=== PATIENT | female | born 1955 | race Caucasian/White ===

== ENCOUNTER → 2018-03-18 13:23 | Outpatient (CLI) | payer MEDICARE, BC, SELFPAY ==
--- NOTE | 2018-03-18 13:34 | XR_ITS ---
XR tibia fibula LT 2V HISTORY: Left leg pain ITS.REASON: BILAT LEG PAIN ORDERING PHYSICIAN: Jose Kraft MD PATIENT AGE: 63 years FINDINGS: Minimal osteoarthritic change of the medial compartment. The tibia and fibula have an unremarkable appearance. IMPRESSION: Negative left tib-fib
--- NOTE | 2018-03-18 13:34 | XR_ITS ---
XR knee RT 3V HISTORY: Right knee pain ITS.REASON: BILAT LEG PAIN ORDERING PHYSICIAN: Jose Kraft MD PATIENT AGE: 63 years COMPARISON: FINDINGS: No fracture or dislocation. No lytic or blastic change. Normal mineralization. No significant arthritic changes evident. No other significant findings IMPRESSION: Negative right Knee
--- NOTE | 2018-03-18 13:34 | XR_ITS ---
XR ankle RT min 3V HISTORY: Right ankle pain ITS.REASON: BILAT LEG PAIN ORDERING PHYSICIAN: Jose Kraft MD PATIENT AGE: 63 years COMPARISON: FINDINGS: No fracture or dislocation. No lytic or blastic change. There is normal mineralization.. The joint spaces are well-preserved. No significant degenerative/arthritic changes. No erosive changes evident. IMPRESSION: Negative ankle, no acute finding
--- NOTE | 2018-03-18 13:34 | XR_ITS ---
XR tibia fibula RT 2V CLINICAL INDICATION: Right leg pain ITS.REASON: BILAT LEG PAIN ORDERING PHYSICIAN: Jose Kraft MD PATIENT AGE: 63 years FINDINGS: No bony or joint abnormality. IMPRESSION: Negative right tib-fib
--- NOTE | 2018-03-18 13:34 | XR_ITS ---
XR knee LT 3V HISTORY: Left knee pain ITS.REASON: BILAT LEG PAIN ORDERING PHYSICIAN: Jose Kraft MD PATIENT AGE: 63 years COMPARISON: FINDINGS: No fracture or dislocation. No lytic or blastic change. Normal mineralization. Mild osteoarthritic changes of the medial compartment and patellofemoral joint. IMPRESSION: Mild osteoarthritis left knee
--- NOTE | 2018-03-18 13:34 | XR_ITS ---
XR ankle LT min 3V HISTORY: Left ankle pain ITS.REASON: BILAT LEG PAIN ORDERING PHYSICIAN: Jose Kraft MD PATIENT AGE: 63 years COMPARISON: FINDINGS: No fracture or dislocation. No lytic or blastic change. There is normal mineralization.. The joint spaces are well-preserved. No significant degenerative/arthritic changes. No erosive changes evident. IMPRESSION: Negative ankle, no acute finding
== END ==
PROVIDERS: PCP Internal Medicine Adolescent Medicine; Visit Provider Internal Medicine Adolescent Medicine
DX: M79.605 Pain in left leg (principal); M79.604 Pain in right leg
CPT/HCPCS: 73562; 73590; 73610

== ENCOUNTER → 2018-09-22 12:48 | Outpatient (CLI) | payer MEDICARE, BC, SELFPAY ==
--- NOTE | 2018-09-22 12:51 | XR_ITS ---
XR foot wt bearing RT 3V HISTORY: ITS.REASON: pain ORDERING PHYSICIAN: Evangelina Liriano DPM PATIENT AGE: 63 years COMPARISON: None FINDINGS: There is mild hallux valgus with mild hypertrophic change of the distal aspect of the fifth metatarsal and mild soft tissue swelling along medial aspect of the fifth metatarsal. No fracture or dislocation. No other significant anomalies evident. IMPRESSION: Mild hallux valgus with bunion formation
--- NOTE | 2018-09-22 12:51 | XR_ITS ---
XR foot wt bearing LT 3V HISTORY: ITS.REASON: pain ORDERING PHYSICIAN: Evangelina Liriano DPM PATIENT AGE: 63 years COMPARISON: None FINDINGS: No fracture or dislocation. No lytic or blastic change. There is normal mineralization.. The joint spaces are well-preserved. No significant degenerative/arthritic changes. No erosive changes evident. There is a small calcaneal spur with minimal calcification just anterior to the spur. Spur measures approximately 8 mm. IMPRESSION: Calcaneal spur otherwise negative left foot
== END ==
PROVIDERS: PCP Internal Medicine Adolescent Medicine; Visit Provider Podiatrist
DX: M79.671 Pain in right foot (principal); M79.672 Pain in left foot
CPT/HCPCS: 73630

== ENCOUNTER → 2019-06-16 11:04 | Outpatient (CLI) | payer MEDICARE, BC, SELFPAY ==
--- NOTE | 2019-06-16 11:15 | XR_ITS ---
XR knee LT 3V HISTORY: Knee pain ITS.REASON: OSTEOARTHRITIS ORDERING PHYSICIAN: Jose Kraft MD PATIENT AGE: 64 years COMPARISON: 03/18/2018 FINDINGS: There is mild osteoarthritic change of the medial compartment and patellofemoral joint overall not significantly changed. No fracture or dislocation. No lytic or blastic change. IMPRESSION: Mild osteoarthritis not significantly changed
== END ==
PROVIDERS: PCP Internal Medicine Adolescent Medicine; Visit Provider Internal Medicine Adolescent Medicine
DX: M17.12 Unilateral primary osteoarthritis, left knee (principal)
CPT/HCPCS: 73562

== ENCOUNTER → 2019-07-10 09:51 | Outpatient (CLI) | payer MEDICARE, BC, SELFPAY ==
--- NOTE | 2019-07-10 09:55 | XR_ITS ---
PROCEDURE: XR KNEE LT 4V Patient Age:64Y CLINICAL INDICATION: left knee pain Arthritis COMPARISON: [id number] XR knee LT 3V from 03/18/2018 FINDINGS: Weightbearing [place], AP, lateral and sunrise patellar view included. No fracture or dislocation. No lytic or blastic change. There is normal mineralization. Mild joint space narrowing is seen at the medial compartment with mild sharpening at the margins of the joint most evident about the medial compartment where there are some tiny marginal osteophytes. Findings reflect early degenerative changes.. Joint fluid appears upper normal upper normal to scant increase fluid noted at suprapatellar bursa but The patellofemoral relationships appear satisfactory. Patella normal size and position.. Minor marginal osteophyte arising from the lateral margin of the patella, as well as femur at the medial aspect of patellofemoral joint IMPRESSION: Mild degenerative changes left knee involving the medial compartment Dictated by: Didier Ball MD 07/10/2019 10:56 Signed by: <Electronically signed by Didier Ball MD in [place]> 07/10/2019 10:56
== END ==
PROVIDERS: PCP Family Medicine; Visit Provider Orthopaedic Surgery
DX: M25.562 Pain in left knee (principal)
CPT/HCPCS: 73564

== ENCOUNTER → 2019-08-06 09:40 | Outpatient (CLI) | payer MEDICARE, BC, SELFPAY ==
--- NOTE | 2019-08-06 09:49 | MM_ITS ---
PROCEDURE: MM DIG SCREENING MAMM BI W/CAD CLINICAL INDICATION: SCREENING There is no personal or family history of breast cancer COMPARISON: DMSB DIGITAL MAMM-SCREEN BILATERAL from 04/08/2013 DMSB DIG MAMM-SCREEN CHUNG from 08/23/2015 DMSB DIG MAMM-SCREEN CHUNG W/CAD from 03/19/2017 TECHNIQUE: Standard CC and MLO images were obtained. R2 CAD reviewed. FINDINGS: Moderate scattered fibroglandular densities are seen throughout both breasts. There are couple of benign-appearing microcalcifications left breast. There is no suspicious lesion in either breast and no suspicious microcalcifications. IMPRESSION: Fibrofatty parenchyma with no suspicious lesions seen BI-RAD Category: 2 Benign Finding(s) FOLLOW-UP: 1YR 1 Year Follow-up (A letter has been sent to the patient regarding results of the study.) Dictated by: Dr. Vladimir Hines MD 08/07/2019 11:[address] Vladimir Hines MD in [place] 08/07/2019 11:07
== END ==
PROVIDERS: PCP Internal Medicine Adolescent Medicine; Visit Provider Internal Medicine Adolescent Medicine
DX: Z12.31 Encounter for screening mammogram for malignant neoplasm of breast (principal)
CPT/HCPCS: 77067

== ENCOUNTER → 2020-08-01 08:28 | Outpatient (CLI) | payer MEDICARE, OTHER, SELFPAY ==
--- NOTE | 2020-08-01 08:43 | XR_ITS ---
PROCEDURE: XR KNEE LT 4V CLINICAL INDICATION: left knee pain COMPARISON: CR [id number] XR knee LT 3V from 03/18/2018 CR [id number] XR knee RT 3V from 03/18/2018 CR XR KNEE LT 4V from 07/10/2019 FINDINGS: No fracture or dislocation. No lytic or blastic change. There is normal mineralization. There are mild osteoarthritic changes involving medial compartment and patellofemoral joint. Suspect small suprapatellar effusion. Other findings:None. IMPRESSION: No change mild osteoarthritic change with possible small suprapatellar effusion Dictated by: Harvinder See MD 08/01/2020 14:13 Harvinder See MD in [place] 08/01/2020 14:13
== END ==
PROVIDERS: PCP Internal Medicine Adolescent Medicine; Visit Provider Orthopaedic Surgery
DX: M17.12 Unilateral primary osteoarthritis, left knee (principal)
CPT/HCPCS: 73564

== ENCOUNTER → 2020-08-22 08:26 | Outpatient (CLI) | payer MEDICARE, OTHER, SELFPAY ==
--- NOTE | 2020-08-22 08:40 | XR_ITS ---
PROCEDURE: XR DEXA AXIAL SKELETON CLINICAL HISTORY: OSTEOPENIA COMPARISON: CR BONE3 BONE DENSITOMETRY(HIP:LT SPINE from 03/19/2017 FINDINGS: The right hip BMD is 0.632 with a T-score of -2.0. The left hip BMD is 0.630 with a T-score of -2.0. The lumbar spine BMD is 0.952 with a T-score of -0.9. Previously the lowest density was in the left femur neck with a T-score -1.8. IMPRESSION: This patient is considered osteopenic according to the World Health Organization criteria. Bone density is between 10 and 25 percent below young normal. Fracture risk is moderate. Treatment is advised. Based on these results a follow-up exam is recommended in 2 year. Dictated by: Harvinder See MD 08/23/2020 08:08 Harvinder See MD in [place] 08/23/2020 08:08
== END ==
PROVIDERS: PCP Internal Medicine Adolescent Medicine; Visit Provider Internal Medicine Adolescent Medicine
DX: M85.89 Other specified disorders of bone density and structure, multiple sites (principal)
CPT/HCPCS: 77080

== ENCOUNTER → 2020-09-17 10:07 | Outpatient (CLI) | payer MEDICARE, OTHER, SELFPAY ==
[2020-09-17 11:40] LABS: Coronavirus 19 IgG Antibody Negative (Negative); Coronavirus 19 IgM Antibody Negative (Negative)
== END ==
PROVIDERS: Visit Provider Internal Medicine Gastroenterology
DX: Z01.818 Encounter for other preprocedural examination (principal); Z12.11 Encounter for screening for malignant neoplasm of colon
CPT/HCPCS: 36415; 86328

== ENCOUNTER 2020-09-19 08:02 | Day surgery (SDC) | payer MEDICARE, OTHER, SELFPAY ==
[2020-09-13 13:37] VITALS: BMI 35.4
[2020-09-19] VITALS (7 sets, daily range): BP systolic 101–138; BP diastolic 70–91; PULSE 64–91; RESP 16–18; TEMP 36.1–36.2; O2SAT 95–100
[2020-09-19 08:41] LABS: POC Glucose,Bedside 126 (70-110)
--- NOTE | 2020-09-19 08:49 | HMH.ANESCL ---
[facility] Anesthesia Checklist - Patient Identification Patient Identification: Arm Band, Verbal (Name & ) - Structural Data Admitted From: Home Planned Operative Procedure/s: Colonoscopy Consent for Planned Operative Procedure(s) Verified: Yes Verified Documents: Surgical Consent, History and Physical - NPO Status Verified Time NPO: 00:00 - Chart Verification Results Verified: None - Additional verifications Fingerstick Blood Glucose: 126 Patient : No Anesthesia Reactions: No - Airway Assessment C-Spine Mobility Assessed: Yes TMJ Mobility Assessed: Yes Dentition: Good Dentition - Neurological Assessment Level of Consciousness: Awake, Alert, Appropriate, Follows Commands Hx Seizures: No Numbness or tingling in extremities: No - Anesthesia Plan Anesthesia Risk discussed: Yes Anesthesia Plan: Verified ASA Class: III Anesthesia Type: MAC [facility] History I have reviewed the patient's past medical history: Yes Medical History: Reports:: Diabetes Mellitus Type 2, Gastroesophageal Reflux Disease(GERD), Hyperlipidemia, Hypertension Denies:: Cancer, MRSA, Seizures *Have you ever received a pneumonia vaccine?: No *Have you received a flu vaccine this season?: No Other Medical History: Reports: Arthritis Comment:: obesity Anesthesia experience/problems:: None Other Surgeries: Yes: Cholecystectomy, Colonoscopy, , Hernia Repair, Hysterectomy-Total Amputation: No Fractures: No - *Social History Last grade of school completed: High school graduate Smoking Status: Never smoker Alcohol Intake: never Alcohol Intake Frequency:: other Substance Use Type: denies use *Occupational Status:: disabled *Travel in the last 8 weeks: None Family Hx:: No significant family history
--- NOTE | 2020-09-19 09:26 | P.PCN_ITS ---
[facility] Procedure Note Procedure Note:: Colonoscopy Procedure Report: Colonoscopy with cold snare polypectomy Endoscopist: Trevon Rivera II, MD Referring physician: Jose Kraft M.D. Date of Procedure: September 19, 2020 Equipment: Olympus 180 variable stiffness pediatric colonoscope Sedation: MAC sedation Indication: Mrs. Cooney is a 65-year-old female who is here for follow-up screening/surveillance colonoscopy. Her last colonoscopy was February 2011. The patient does have some intermittent hemorrhoidal prolapse and minor hemorrhoid bleeding. She does take Senokot, magnesium oxide and MiraLAX twice daily which helps to control her chronic constipation. She reports no abdominal pain, weight loss, change in her bowel habits or family history of colon cancer. Procedure: Prior to the procedure, a history and physical exam was performed, and patient's medications and allergies were reviewed. The risks, benefits and alternatives of the sedation and procedure were discussed with the patient. All questions were answered and informed consent was obtained. The patient was brought to the procedure room. Patient identification and proposed procedure were verified by the physician and the nurse. The patient was placed in a left lateral decubitus position and the scope was passed under direct vision. Throughout the procedure , the patient's blood pressure, pulse, and oxygen saturations were monitored continuously. The colonoscopy was accomplished without difficulty. The patient tolerated the procedure well. Findings: On digital rectal examination there was normal rectal tone. There were no external hemorrhoids. The colonoscope was introduced through the anal canal to the rectum and advanced to the cecum. The ileocecal valve and appendiceal orifice were identified. The scope was advanced a short distance into the ileum which appeared grossly normal. The scope was then withdrawn into the colon. The cecum was normal. There were 4 polyps (ascending x1 (4 mm), transverse x1 (4 mm), descending x2 (3 and 6 mm)) that were all removed via cold snare polypectomy. There was mild melanosis coli. There were scattered diverticuli throughout the descending and sigmoid colon (LEFT colon). The rectum itself was normal. Upon retroflexion within the rectum there were grade 1-2 internal hemorrhoids. The preparation was excellent throughout with Ogden Preparation Score of 9. The cecal time was 13 minutes. Impression: 1. Diminutive colonic polyps x4 2. Left-sided diverticulosis 3. Mild melanosis coli 4. Grade 1-2 internal hemorrhoids Plan: The patient does state that she has minor hemorrhoid bleeding. If this were to persist, would consider more definitive hemorrhoid ablation or banding. I will follow-up the polyp histology and recommend repeat surveillance colonoscopy again in 5 years if the polyps are adenomatous. I would continue the bowel regimen that she is presently taking since she does state this does help to control bowel regularity.
== END 2020-09-19 10:31 | disposition home or self-care (01) ==
LOC: OUTP 08:04
PROVIDERS: PCP Internal Medicine Adolescent Medicine; Visit Provider Internal Medicine Gastroenterology
PROC: 0DJD8ZZ Inspection of Lower Intestinal Tract, Via Natural or Artificial Opening Endoscopic (ICD-10-PCS; CPT 45378; principal; 2020-09-19 09:30)
DX: Z12.11 Encounter for screening for malignant neoplasm of colon (principal); K63.5 Polyp of colon; K57.30 Diverticulosis of large intestine without perforation or abscess without bleeding; K63.89 Other specified diseases of intestine; K64.0 First degree hemorrhoids; E11.9 Type 2 diabetes mellitus without complications; K21.9 Gastro-esophageal reflux disease without esophagitis; E78.5 Hyperlipidemia, unspecified; I10 Essential (primary) hypertension
CPT/HCPCS: 45385; 82962; 88305

== ENCOUNTER → 2020-10-05 09:29 | Outpatient (CLI) | payer MEDICARE, OTHER, SELFPAY ==
--- NOTE | 2020-10-05 09:35 | MM_ITS ---
PROCEDURE: MM DIG SCREENING MAMM BI W/CAD Digital Breast Tomosynthesis Included CLINICAL INDICATION: SCREENING There is no personal or family history of breast cancer. Patient currently is on estrogen. COMPARISON: MG DMSB DIG MAMM-SCREEN CHUNG W/CAD from 03/19/2017 MG MM DIG SCREENING MAMM BI W/CAD from 08/06/2019 TECHNIQUE: Standard CC and MLO images and 3D Tomosynthesis was obtained. R2 CAD reviewed. FINDINGS: Scattered fibroglandular densities are seen throughout both breast and the findings are fairly symmetrical bilaterally. There is benign-appearing calcification left breast. There are no CAD markings. There is no suspicious lesion in either breast and no suspicious microcalcifications. IMPRESSION: Fibrofatty parenchyma with no suspicious BI-RAD Category: 2 Benign Finding(s) FOLLOW-UP: 1YR 1 Year Follow-up (A letter has been sent to the patient regarding results of the study.) Dictated by: Dr. Vladimir Hines MD 10/08/2020 09:16 Dr. Vladimir Hines MD in [place] 10/08/2020 09:16
== END ==
PROVIDERS: PCP Internal Medicine Adolescent Medicine; Visit Provider Internal Medicine Adolescent Medicine
DX: Z12.31 Encounter for screening mammogram for malignant neoplasm of breast (principal)
CPT/HCPCS: 77063; 77067

== ENCOUNTER → 2021-04-11 22:10 | Outpatient (CLI) | payer MEDICARE, OTHER, SELFPAY ==
[2021-04-11 22:18] LABS: Basophils # 0.1 K/mm3 (0-0.2); Basophils % 0.7 % (0.1-2.0); Eosinophils # 0.1 K/mm3 (0.0-0.4); Eosinophils % 1.2 % (0.1-12.0); Hematocrit 39.9 % (37.0-47.0); Hemoglobin 12.9 g/dL (12.2-16.2); Lymphocytes # 3.4 K/mm3 (0.7-4.5); Lymphocytes % 34.8 % (10-50); Mean Corpuscular HGB Conc 32.3 g/dL (31.8-35.4); Mean Corpuscular Hemoglobin 29.4 pg (27.0-31.2); Monocytes # 0.9 K/mm3 (0.1-1.0); Monocytes % 9.6 % (1.7-9.3); Neutrophils # 5.2 K/mm3 (1.8-7.8); Neutrophils % 53.7 % (37.0-80.0); Platelet Count 334 K/mm3 (142-424); Red Blood Count 4.39 M/mm3 (4.20-5.40); Red Cell Distribution Width 15.6 % (11.5-17.5); White Blood Count 9.6 K/mm3 (4.8-10.8)
[2021-04-11 22:36] LABS: Chloride 101 mmol/L (98-107)
[2021-04-11 22:37] LABS: Potassium 5.2 mmoL/L (3.5-5.1); Sodium 137 mmol/L (136-145)
[2021-04-11 22:39] LABS: Alanine Aminotransferase 39 U/L (12-78); Alkaline Phosphatase 81 U/L (38-126); Anion Gap 14.2 mEq/L (5-15); Aspartate Amino Transferase 36 U/L (14-36); Bilirubin,Total 0.6 mg/dl (0.2-1.3); Blood Urea Nitrogen 14 mg/dl (7-17); Carbon Dioxide 27 mmol/L (22.0-30.0); Estimated Glomerular Filt Rate 84 ml/min (>60); GFR (African American) 101 ML/MIN (>60)
[2021-04-11 22:40] LABS: Albumin Level 4.4 g/dl (3.5-5.0); Albumin/Globulin Ratio 1.8 (1.1-1.8); Calcium 10.1 mg/dl (8.4-10.2); Globulin 2.5 g/dL (1.3-3.2); Glucose 108 mg/dl (74-100); Total Protein,Serum 6.9 g/dl (6.3-8.2)
== END ==
PROVIDERS: Visit Provider Internal Medicine Adolescent Medicine
DX: M06.041 Rheumatoid arthritis without rheumatoid factor, right hand (principal)
CPT/HCPCS: 80053; 85025

== ENCOUNTER → 2021-08-08 08:00 | Outpatient (CLI) | payer MEDICARE, OTHER, SELFPAY ==
[2021-08-09 08:32] LABS: Basophils # 0.1 K/mm3 (0-0.2); Basophils % 0.9 % (0.1-2.0); Eosinophils # 0.1 K/mm3 (0.0-0.4); Eosinophils % 1.1 % (0.1-12.0); Hematocrit 44.4 % (37.0-47.0); Hemoglobin 13.1 g/dL (12.2-16.2); Lymphocytes # 3.5 K/mm3 (0.7-4.5); Lymphocytes % 34.5 % (10-50); Mean Corpuscular HGB Conc 29.6 g/dL (31.8-35.4); Mean Corpuscular Hemoglobin 28.7 pg (27.0-31.2); Mean Corpuscular Volume 96.9 fl (81-99); Mean Platelet Volume 11.3 fl (7.4-10.4); Monocytes % 9.3 % (1.7-9.3); Neutrophils # 5.6 K/mm3 (1.8-7.8); Neutrophils % 54.2 % (37.0-80.0); Platelet Count 331 K/mm3 (142-424); Red Blood Count 4.58 M/mm3 (4.20-5.40); Red Cell Distribution Width 15.3 % (11.5-17.5); White Blood Count 10.2 K/mm3 (4.8-10.8)
[2021-08-09 08:38] LABS: Alanine Aminotransferase 40 U/L (12-78); Albumin Level 3.9 g/dl (3.5-5.0); Albumin/Globulin Ratio 1.4 (1.1-1.8); Alkaline Phosphatase 87 U/L (38-126); Anion Gap 12.1 mEq/L (5-15); Aspartate Amino Transferase 47 U/L (14-36); Bilirubin,Total 0.5 mg/dl (0.2-1.3); Blood Urea Nitrogen 9 mg/dl (7-17); Calcium 10.4 mg/dl (8.4-10.2); Carbon Dioxide 28 mmol/L (22.0-30.0); Chloride 102 mmol/L (98-107); Chol/HDL Ratio 2.6 (1-3.5); Cholesterol 136 mg/dl (140-200); Estimated Glomerular Filt Rate 84 ml/min (>60); GFR (African American) 101 ML/MIN (>60); Globulin 2.7 g/dL (1.3-3.2); Glucose 149 mg/dl (74-100); HDL Cholesterol 53 mg/dl (40-60); Potassium 5.1 mmoL/L (3.5-5.1); Sodium 137 mmol/L (136-145); Total Protein,Serum 6.6 g/dl (6.3-8.2); Triglycerides 138 mg/dl (30-150); VLDL Cholesterol 28 mg/dL (0-40)
[2021-08-09 09:34] LABS: Hemoglobin A1C 7.5 % (4.0-6.0)
== END ==
PROVIDERS: Visit Provider Internal Medicine Adolescent Medicine
DX: E11.9 Type 2 diabetes mellitus without complications (principal); E78.5 Hyperlipidemia, unspecified; M06.841 Other specified rheumatoid arthritis, right hand; M85.89 Other specified disorders of bone density and structure, multiple sites; Z79.84 Long term (current) use of oral hypoglycemic drugs
CPT/HCPCS: 80053; 80061; 83036; 85025

== ENCOUNTER → 2021-10-27 16:22 | Outpatient (CLI) | payer MEDICARE, OTHER, SELFPAY ==
--- NOTE | 2021-10-27 16:25 | MM_ITS ---
PROCEDURE INFORMATION: Exam: MG Bilateral Screening 3D Mammography Exam date and time: 10/27/2021 4:25 PM Age: 66 years old Clinical indication: Encounter for screening mammogram for malignant neoplasm of breast TECHNIQUE: Imaging protocol: Bilateral screening tomosynthesis and 2D mammography including computer-aided detection (CAD) when performed. COMPARISON: 1. MG MM DIG SCREENING MAMM BI W/CAD 10/05/2020 9:36 AM 2. MG MM DIG SCREENING MAMM BI W/CAD 08/06/2019 10:05 AM FINDINGS: MAMMOGRAPHY: Breast composition: The breast tissue is composed of scattered areas of fibroglandular density. Mass: None. Architectural distortion: None. Calcifications: No suspicious calcifications. Asymmetric density: None. Skin thickening: None. Axillary adenopathy: None. IMPRESSION: No mammographic evidence of malignancy. Annual screening is recommended unless otherwise clinically indicated. ASSESSMENT: BI-RADS Category 1: Negative
== END ==
PROVIDERS: PCP Internal Medicine Adolescent Medicine; Visit Provider Internal Medicine Adolescent Medicine
DX: Z12.31 Encounter for screening mammogram for malignant neoplasm of breast (principal)
CPT/HCPCS: 77063; 77067

== ENCOUNTER → 2021-11-21 18:56 | Outpatient (CLI) | payer MEDICARE, OTHER, SELFPAY ==
[2021-11-21 19:03] LABS: Basophils # 0.1 K/mm3 (0-0.2); Basophils % 1.6 % (0.1-2.0); Eosinophils # 0.1 K/mm3 (0.0-0.4); Hematocrit 44.3 % (37.0-47.0); Lymphocytes # 3.1 K/mm3 (0.7-4.5); Lymphocytes % 36.4 % (10-50); Mean Corpuscular HGB Conc 31.7 g/dL (31.8-35.4); Mean Corpuscular Hemoglobin 29.2 pg (27.0-31.2); Mean Corpuscular Volume 92.1 fl (81-99); Mean Platelet Volume 10.4 fl (7.4-10.4); Monocytes # 0.7 K/mm3 (0.1-1.0); Monocytes % 8.4 % (1.7-9.3); Neutrophils # 4.4 K/mm3 (1.8-7.8); Neutrophils % 52.7 % (37.0-80.0); Platelet Count 313 K/mm3 (142-424); Red Blood Count 4.81 M/mm3 (4.20-5.40); Red Cell Distribution Width 15.5 % (11.5-17.5); White Blood Count 8.4 K/mm3 (4.8-10.8)
[2021-11-21 19:15] LABS: Alanine Aminotransferase 57 U/L (12-78); Albumin Level 4.5 g/dl (3.5-5.0); Albumin/Globulin Ratio 1.9 (1.1-1.8); Alkaline Phosphatase 93 U/L (38-126); Anion Gap 9.8 mEq/L (5-15); Aspartate Amino Transferase 57 U/L (14-36); Bilirubin,Total 0.7 mg/dl (0.2-1.3); Blood Urea Nitrogen 12 mg/dl (7-17); Calcium 11.3 mg/dl (8.4-10.2); Carbon Dioxide 31 mmol/L (22.0-30.0); Chloride 99 mmol/L (98-107); Chol/HDL Ratio 2.8 (1-3.5); Cholesterol 137 mg/dl (140-200); Estimated Glomerular Filt Rate 72 ml/min (>60); GFR (African American) 87 ML/MIN (>60); Globulin 2.4 g/dL (1.3-3.2); Glucose 165 mg/dl (74-100); HDL Cholesterol 49 mg/dl (40-60); Potassium 4.8 mmoL/L (3.5-5.1); Sodium 135 mmol/L (136-145); Total Protein,Serum 6.9 g/dl (6.3-8.2); Triglycerides 199 mg/dl (30-150); VLDL Cholesterol 40 mg/dL (0-40)
[2021-11-21 19:26] LABS: Direct LDL Cholesterol 59.05 mg/dL (100-129)
[2021-11-21 19:42] LABS: Hemoglobin A1C 7.5 % (4.0-6.0)
[2021-11-21 19:45] LABS: Thyroid Stimulating Hormone 1.67 uIU/mL (0.465-4.68)
[2021-11-21 21:08] LABS: 25-OH Vitamin D, Total 40.7 ng/mL (30-100)
== END ==
PROVIDERS: Visit Provider Internal Medicine Adolescent Medicine
DX: E11.9 Type 2 diabetes mellitus without complications (principal); E78.5 Hyperlipidemia, unspecified; M85.89 Other specified disorders of bone density and structure, multiple sites; Z79.84 Long term (current) use of oral hypoglycemic drugs
CPT/HCPCS: 80053; 80061; 82306; 83036; 84443; 85025

== ENCOUNTER → 2022-10-09 05:52 | Outpatient (CLI) | payer MEDICARE, OTHER, SELFPAY ==
[2022-10-09 19:05] LABS: Creatinine,Urine Random 74 mg/dL (Not Estab.); Microalbumin < 6.000 mg/L (0-16.7)
== END ==
PROVIDERS: PCP Family Medicine; Visit Provider Family Medicine
DX: E11.9 Type 2 diabetes mellitus without complications (principal)
CPT/HCPCS: 82043; 82570

== ENCOUNTER → 2022-10-12 11:39 | Outpatient (CLI) | payer MEDICARE, OTHER, SELFPAY ==
--- NOTE | 2022-10-12 11:48 | XR_ITS ---
FINAL REPORT CLINICAL HISTORY: low back pain, hx of hernia sx and mesh placed FINDINGS: LUMBAR SPINE Three views were obtained. There is no acute fracture. There is leftward curvature. Mild to moderate degenerative changes are present. There is 3 mm of anterolisthesis of L4 on L5. There is 4 mm of anterolisthesis of L5 on S1. Mild vascular calcifications are noted. IMPRESSION: Degenerative changes with no acute bony abnormality. Reviewed, Interpreted and Dictated by Travis Bui III, MD Transcribed by Yen Mabry Authenticated and [facility]
== END ==
PROVIDERS: PCP Family Medicine; Visit Provider Family Medicine
DX: M54.50 Low back pain, unspecified (principal)
CPT/HCPCS: 72100

== ENCOUNTER → 2022-11-01 09:30 | Outpatient (CLI) | payer MEDICARE, OTHER, SELFPAY | PROVIDERS: PCP Family Medicine; Visit Provider Family Medicine | DX: Z12.31 Encounter for screening mammogram for malignant neoplasm of breast (principal) ==

== ENCOUNTER → 2022-11-01 18:58 | Outpatient (CLI) | payer MEDICARE, OTHER, SELFPAY | PROVIDERS: PCP Family Medicine; Visit Provider Family Medicine | DX: E11.9 Type 2 diabetes mellitus without complications (principal) | CPT/HCPCS: 83036 ==

== ENCOUNTER → 2022-11-06 12:52 | Outpatient (CLI) | payer MEDICARE, OTHER, SELFPAY ==
--- NOTE | 2022-11-06 13:07 | MM_ITS ---
PROCEDURE INFORMATION: Exam: MG Bilateral Screening 3D Mammography Exam date and time: 11/06/2022 1:01 PM Age: 67 years old Clinical indication: Screening. No family history of breast cancer. TECHNIQUE: Imaging protocol: Bilateral Screening tomosynthesis and 2D mammography including computer-aided detection (CAD) when performed. COMPARISON: 1. MG MM DIG SCREENING MAMM BI W/CAD 10/27/2021 4:21 PM 2. MG MM DIG SCREENING MAMM BI W/CAD 10/05/2020 9:36 AM 3. MG MM DIG SCREENING MAMM BI W/CAD 08/06/2019 10:05 AM 4. MG DMSB DIG MAMM-SCREEN CHUNG W/CAD 03/19/2017 10:19 AM FINDINGS: MAMMOGRAPHY: Breast composition: There are scattered areas of fibroglandular density. Mass: No suspicious mass. Architectural distortion: None. Calcifications: No suspicious calcifications. Asymmetric density: None. Skin thickening: None. Axillary adenopathy: None. IMPRESSION: No mammographic evidence of malignancy. Annual screening is recommended unless otherwise clinically indicated. ASSESSMENT: BI-RADS Category 1: Negative
== END ==
PROVIDERS: PCP Family Medicine; Visit Provider Family Medicine
DX: Z12.31 Encounter for screening mammogram for malignant neoplasm of breast (principal)
CPT/HCPCS: 77063; 77067

== ENCOUNTER → 2022-11-20 10:05 | Outpatient (CLI) | payer MEDICARE, OTHER, SELFPAY ==
[2022-11-20 11:48] LABS: Blood Urea Nitrogen 10 mg/dl (7-17); Estimated Glomerular Filt Rate 72 ml/min (>60); GFR (African American) 87 ML/MIN (>60)
== END ==
PROVIDERS: PCP Family Medicine; Visit Provider Surgery
DX: Z01.812 Encounter for preprocedural laboratory examination (principal)
CPT/HCPCS: 36415; 82565; 84520

== ENCOUNTER → 2022-12-03 07:49 | Outpatient (CLI) | payer MEDICARE, OTHER, SELFPAY ==
--- NOTE | 2022-12-03 07:54 | CT_ITS ---
FINAL REPORT TECHNIQUE: Thin section axial images were obtained through the abdomen after intravenous contrast. Reconstruction images were obtained from the axial data. Exam was performed using dose reduction techniques. CLINICAL HISTORY: possible hernia, hernia repair FINDINGS: The lung bases are clear. The liver is fatty infiltrated without focal lesions seen. The gallbladder is absent. The spleen, adrenal glands, and pancreas are unremarkable. There is no hydronephrosis or solid renal mass. Abdominal GI tract is without acute abnormality. There is no abdominal lymphadenopathy or ascites. There is a small hiatal hernia. There are postoperative changes from ventral hernia repair. Superior to the mesh is a midline hernia containing only fat. Abdominal wall defect measures 3.3 cm. The appendix is not identified. There are no secondary findings of appendicitis. There is diverticulosis without evidence of diverticulitis. Patient is status post hysterectomy. The remaining pelvic solid organs are unremarkable. The pelvic portions of the GI tract are without acute abnormality. There is no pelvic lymphadenopathy or ascites. No acute osseous abnormalities identified. IMPRESSION: Fat containing, midline ventral hernia superior to mesh from prior hernia repair. Reviewed, Interpreted and Dictated by Mary Reddy MD Transcribed by Anila Vázquez Authenticated and [facility]
== END ==
PROVIDERS: PCP Family Medicine; Visit Provider Surgery
DX: K46.9 Unspecified abdominal hernia without obstruction or gangrene (principal); R10.11 Right upper quadrant pain
CPT/HCPCS: 74177; Q9967

== ENCOUNTER → 2023-04-24 09:00 | Outpatient (CLI) | payer MEDICARE, OTHER, SELFPAY ==
[2023-04-24 21:03] LABS: Creatinine,Urine Random 33 mg/dL (Not Estab.); Microalbumin < 6.000 mg/L (0-16.7)
== END ==
PROVIDERS: PCP Family Medicine; Visit Provider Family Medicine
DX: E11.9 Type 2 diabetes mellitus without complications (principal); Z79.84 Long term (current) use of oral hypoglycemic drugs
CPT/HCPCS: 82043; 82570

== ENCOUNTER → 2023-04-25 08:18 | Outpatient (CLI) | payer MEDICARE, OTHER, SELFPAY ==
--- NOTE | 2023-04-25 08:26 | ECG_ITS ---
APPROVED REPORT Exam: Resting ECG HR:50 bpm ECG Measurements Heart Rate 50 AXES CO 207 P 44 QRSd 80 QRS 58 QT 394 T 52 QTc 366 Conclusion SINUS BRADYCARDIA LOW QRS VOLTAGE IN PRECORDIAL LEADS [QRS DEFLECTION < 1.0 mV IN CHEST LEADS] BORDERLINE ECG UNCONFIRMED REPORT Electronically signed by : Jose Kraft MD 04/25/2023 13:30:38
--- NOTE | 2023-04-25 08:30 | XR_ITS ---
FINAL REPORT CLINICAL HISTORY: hernia COMPARISON: None FINDINGS: There is no evidence of effusion or other pleural disease. The mediastinum has a normal appearance. The cardiac silhouette is unremarkable. IMPRESSION: Unremarkable chest exam. Reviewed, Interpreted and Dictated by Jordan Casas MD Transcribed by Paris Taylor Authenticated and [facility]
[2023-04-25 09:25] LABS: Basophils % 0.6 % (0.1-2.0); Eosinophils # 0.1 K/mm3 (0.0-0.4); Eosinophils % 1.1 % (0.1-12.0); Hematocrit 44.7 % (37.0-47.0); Hemoglobin 14.9 g/dL (12.2-16.2); Lymphocytes # 2.5 K/mm3 (0.7-4.5); Lymphocytes % 36.5 % (10-50); Mean Corpuscular HGB Conc 33.4 g/dL (31.8-35.4); Mean Corpuscular Hemoglobin 31.2 pg (27.0-31.2); Mean Corpuscular Volume 93.3 fl (81-99); Mean Platelet Volume 9.1 fl (7.4-10.4); Monocytes # 0.6 K/mm3 (0.1-1.0); Monocytes % 8.5 % (1.7-9.3); Neutrophils # 3.6 K/mm3 (1.8-7.8); Neutrophils % 53.4 % (37.0-80.0); Platelet Count 252 K/mm3 (142-424); Red Blood Count 4.79 M/mm3 (4.20-5.40); Red Cell Distribution Width 13.7 % (11.5-17.5); White Blood Count 6.8 K/mm3 (4.8-10.8)
[2023-04-25 09:50] LABS: Chloride 102 mmol/L (98-107); Sodium 138 mmol/L (136-145)
[2023-04-25 09:51] LABS: Potassium 4.6 mmoL/L (3.5-5.1)
[2023-04-25 09:51] LABS: Chloride 101 mmol/L (98-107); Sodium 138 mmol/L (136-145)
[2023-04-25 09:52] LABS: Hemoglobin A1C 6.5 % (4.0-6.0); Potassium 4.6 mmoL/L (3.5-5.1)
[2023-04-25 09:54] LABS: Alanine Aminotransferase 36 U/L (12-78); Albumin Level 4.2 g/dl (3.5-5.0); Albumin/Globulin Ratio 1.8 (1.1-1.8); Alkaline Phosphatase 76 U/L (38-126); Anion Gap 15.6 mEq/L (5-15); Aspartate Amino Transferase 37 U/L (14-36); Bilirubin,Total 0.7 mg/dl (0.2-1.3); Blood Urea Nitrogen 9 mg/dl (7-17); Calcium 10.6 mg/dl (8.4-10.2); Carbon Dioxide 26 mmol/L (22.0-30.0); Estimated Glomerular Filt Rate 83 ml/min (>60); GFR (African American) 101 ML/MIN (>60); Globulin 2.4 g/dL (1.3-3.2); Glucose 157 mg/dl (74-100); Total Protein,Serum 6.6 g/dl (6.3-8.2)
[2023-04-25 09:54] LABS: Anion Gap 13.6 mEq/L (5-15); Blood Urea Nitrogen 9 mg/dl (7-17); Calcium 10.7 mg/dl (8.4-10.2); Carbon Dioxide 27 mmol/L (22.0-30.0); Estimated Glomerular Filt Rate 83 ml/min (>60); GFR (African American) 101 ML/MIN (>60); Glucose 157 mg/dl (74-100)
== END ==
PROVIDERS: PCP Family Medicine; Visit Provider Surgery
DX: K46.9 Unspecified abdominal hernia without obstruction or gangrene (principal); E11.9 Type 2 diabetes mellitus without complications; I10 Essential (primary) hypertension; Z01.818 Encounter for other preprocedural examination; Z79.84 Long term (current) use of oral hypoglycemic drugs
CPT/HCPCS: 36415; 71046; 80048; 80053; 83036; 85025; 93005

== ENCOUNTER 2023-04-29 08:37 | Day surgery (SDC) | payer MEDICARE, OTHER, SELFPAY ==
[2023-04-29] VITALS (17 sets, daily range): BP systolic 111–155; BP diastolic 66–96; PULSE 65–77; RESP 14–16; TEMP 36.1–43; O2SAT 90–96; BMI 34.1
[2023-04-29 09:49] LABS: POC Glucose,Bedside 169 (70-110)
--- NOTE | 2023-04-29 10:17 | P.PN_ITS ---
[facility] Disclaimer: The information contained in this section may have been updated after the patient was seen, as this information can be updated by other users. Medical History Aphthous ulcer Hearing loss Hyperlipidemia Hypertension Osteoporosis Rheumatoid arthritis Surgical menopause, symptomatic Type 2 diabetes mellitus Surgical History History of delivery History of cholecystectomy History of colonoscopy History of hernia repair History of hysterectomy Family History Grandmother Coronary artery disease Social History Smoking Status: Never smoker alcohol intake: never substance use type: denies use current occupational status: disabled Travel in the last 8 weeks: None household members: spouse housing: house caffeine: Yes [facility] Anesthesia Checklist Patient Identification Patient Identification: Arm Band Structural Data Admitted From: Home Planned Operative Procedure/s: Laparoscopic Ventral Hernia Repair Consent for Planned Operative Procedure(s) Verified: Yes Verified Documents: Surgical Consent and History and Physical NPO Status Verified Time NPO: 00:00 Additional verifications Anesthesia Reactions: No Hx Blood Transfusions: No Blood Transfusion Reaction: No Airway Assessment C-Spine Mobility Assessed: Yes TMJ Mobility Assessed: Yes Dentition: Good Dentition Neurological Assessment Level of Consciousness: Awake and Alert Anesthesia Plan Anesthesia Risk discussed: Yes Anesthesia Plan: Verified ASA Class: II Anesthesia Type: General
--- NOTE | 2023-04-29 11:57 | EXP.GEN.HP ---
HPI HPI HPI: Patient presents for abdominal hernia repair. She is a pleasant 67-year-old female from [place] who is somewhat hard of hearing.? She was referred by Dr. Eason for recurrent ventral hernia.? She had previously undergone x2 through low midline and hysterectomy.? She has also had laparoscopic cholecystectomy.? She had developed a supraumbilical hernia and underwent laparoscopic repair by Dr. Amando Tee about 7 or 10 years ago.? She states about 4 years ago she had noticed a recurrent bulge.? She did gain some weight but she is trying to lose this.? I had initially seen her in the office on 11/20/2022.? I had her undergo CT scan to better evaluate hernia. CT scan reveals findings of ventral hernia repair with midline hernia containing fat with a defect measuring 3.3 cm superior to previously placed mesh.? I feel that the patient had a moderate recurrent ventral hernia at her midline above previous mesh.? She also had evidence of a small trocar site hernia in the epigastrium from previous cholecystectomy.? When she was seen in the office in November she wished to refrain from surgery at that time due to some personal life stressors.? She presents to the office now.? She does have some minor discomfort.? However she is able to do some work including working in the garden.? She would like to pursue repair. [facility] Disclaimer: The information contained in this section may have been updated after the patient was seen, as this information can be updated by other users. Medical History Aphthous ulcer Hearing loss Hyperlipidemia Hypertension Osteoporosis Rheumatoid arthritis Surgical menopause, symptomatic Type 2 diabetes mellitus Surgical History History of delivery History of cholecystectomy History of colonoscopy History of hernia repair History of hysterectomy Family History Grandmother Coronary artery disease Social History Smoking Status: Never smoker alcohol intake: never substance use type: denies use current occupational status: disabled Travel in the last 8 weeks: None household members: spouse housing: house caffeine: Yes Meds Home Medications and Allergies Home Medications Medication Instructions Recorded Confirmed Type calcium carbonate 600 mg calcium 600 mg PO DAILY Supplement 09/13/20 04/29/23 History (1,500 mg) tablet diltiazem HCl 240 mg 240 mg PO DAILY bp 90 days #90 caps 10/09/22 04/29/23 Rx capsule,extended release 24 hr, controlled lansoprazole 30 mg capsule,delayed 30 mg PO DAILY stomach 90 days #90 10/09/22 04/29/23 Rx release caps lisinopril 20 mg tablet 20 mg PO DAILY blood pressure 90 10/09/22 04/29/23 Rx days #90 tabs meloxicam 15 mg tablet 15 mg PO DAILY Pain 90 days #90 10/09/22 04/29/23 Rx tabs polyethylene glycol 3350 17 17 g PO DAILY PRN constipation 30 10/09/22 04/29/23 Rx gram/dose oral powder days #119 grams psyllium husk 3.4 gram/5.4 gram 1 tbsp PO DAILY PRN Constipation 10/09/22 04/29/23 History oral powder (Metamucil) alendronate 35 mg tablet 35 mg PO WEEKLY Osteoporosis 90 03/25/23 04/29/23 Rx days #13 tabs tramadol 50 mg tablet 50 mg PO BID Pain 30 days #60 tabs 04/17/23 04/29/23 Rx atorvastatin 20 mg tablet (Lipitor) 20 mg PO DAILY Cholesterol 04/29/23 04/29/23 History conjugated estrogens 0.625 mg 0.625 mg PO DAILY hormones 04/29/23 04/29/23 History tablet folic acid 1 mg tablet 1 mg PO DAILY Supplement 04/29/23 04/29/23 History gabapentin 100 mg capsule See Rx Instructions .Route 04/29/23 04/29/23 History .COMPLEX Pain metformin 1,000 mg tablet,extended 1,000 mg PO DAILY Diabetes 04/29/23 04/29/23 History release 24hr methotrexate sodium 2.5 mg tablet 20 mg PO WEEKLY Arthritis 04/29/23
--- NOTE | 2023-04-29 15:03 | EXP.OP.NOTE ---
Date of procedure: 04/29/23 Pre-op Diagnosis:: Recurrent ventral hernia, chronically incarcerated Epigastric trocar site incisional hernia Post-op Diagnosis:: Same Procedure performed:: Laparoscopic repair of recurrent ventral hernia with placement of Bard Ventralight ST mesh (15.2 cm circular) Laparoscopic repair of epigastric trocar site hernia with placement of 6.4 cm Bard Ventralex mesh Surgeon:: Travis Dukes MD OVERHEAD IRRIGATOR:: Other Anesthesia: GETA Estimated blood loss (mL): 25 Clinical Note:: Patient presents for abdominal hernia repair.? She is a pleasant 67-year-old female from [place] who is somewhat hard of hearing.? She was referred by Dr. Eason for recurrent ventral hernia.? She had previously undergone x2 through low midline and hysterectomy.? She has also had laparoscopic cholecystectomy.? She had developed a supraumbilical hernia and underwent laparoscopic repair by Dr. Amando Tee about 7 to 10 years ago.? She states about 4 years ago she had noticed a recurrent bulge.? She did gain some weight but she is trying to lose this.? I had initially seen her in the office on 11/20/2022.? I had her undergo CT scan to better evaluate hernia. CT scan reveals findings of ventral hernia repair with midline hernia containing fat with a defect measuring 3.3 cm superior to previously placed mesh.? I feel that the patient had a moderate recurrent ventral hernia at her midline above previous mesh.? She also had evidence of a small trocar site hernia in the epigastrium from previous cholecystectomy.? When she was seen in the office in November she wished to refrain from surgery at that time due to some personal life stressors.? She recently presented to the office for followup.? She does have some minor discomfort.? However she is able to do some work including working in the garden.? She would like to pursue repair. Operative findings:: She had extensive adhesions to her previously placed mesh. There was a moderate hernia at the superior aspect of the mesh with a defect measuring about 3 to 4 cm with chronically incarcerated omentum. She had a couple of hernias in the epigastric site at previous trocar scar by a small fascial bridge with chronically incarcerated preperitoneal fatty tissues. Operative note:: Consent was obtained patient was taken to the operating room. She was given preoperative intravenous antibiotics. In the operating room she was placed in a supine position. General anesthesia was induced via endotracheal tube. Escudero catheter was placed. Abdomen was prepped and draped in the standard surgical fashion. 5 mm left subcostal incision was made. Optical trocar was inserted carefully into the peritoneal cavity and CO2 pneumoperitoneum was achieved to 15 mmHg. There is some omental adhesions to the anterior abdomen above the umbilicus. Initially mesh was obscured. She had additional trocar placed in the left lateral abdomen. Prolonged dissection was carried out taking down the omental adhesions from the mesh which was ultimately identified. This was done using some blunt dissection, Metzenbaum dissection, and use of CHRISTIE ultrasonic harmonic jany. There were herniated tissues adjacent to and above the mesh is a recurrent hernia. To reduce the hernia contents additional 5 mm trocar was inserted in the left lower abdomen for a total of three 5 mm trocars in the left abdomen. Ultimately the hernia contents consisting of chronically incarcerated omentum were able to be reduced. There was redundant hernia sac which was excised as well. The omentum with hernia sac was excised from the omental pedicle to be removed later as a specimen. She had a 5 mm trocar placed in the right lateral abdomen. Attention was turned to the dissection on the epigastric trocar site hernia. This was adjacent to to the left of the falciform ligament. The peritoneum was incised. Falciform ligament was partially taken down using CHRISTIE ultrasonic harmonic
--- NOTE | 2023-04-29 15:04 | P.PNANES_ITS ---
[facility] Anesthesia Record Part I Anesthesia Record I Intake, IV Amount: 1,200 Estimated blood loss (mL): 30 Urine output (mL): 600 Blood Products used (#): none Blood Pressure: 153/96 SaO2: 90 Pulse Rate: 76 Respiratory Rate: 16 Temperature: 97.5 F Patient is:: Drowsy and Stable Stable to PACU at:: 14:55
[2023-04-29 16:01] LABS: Microscopic,Cath URINE MICROSCOPIC (MICROSCOPIC)
[2023-04-29 16:05] LABS: Appearance,Urine/Cath CLEAR (Clear); Bilirubin,Cath Negative (Negative); Blood, Urine/Cath Negative (Negative); Color,Urine/Cath YELLOW (Yellow); Glucose,Urine/Cath (UA) Negative (Negative); Ketones,Urine/Cath Negative (Negative); Leukocyte Esterase,Cath Negative (Negative); Nitrate,Cath Negative (Negative); Protein,Urine/Cath Negative (Negative); Specific Gravity, Urine/Cath 1.015 (1.005-1.030); Urobilinogen,Cath 0.2 EU/dl (0.2)
[2023-04-29 16:08] LABS: POC Glucose,Bedside 194 (70-110)
--- NOTE | 2023-04-30 07:19 | EXP.ANES.II ---
[facility] Anesthesia Record Part II Anesthesia Record Part II Discharge Time: 15:59 Destination: Surgical Day Care (OP Surgery) PACU nurse assessment reviewed?: Yes Patient Condition:: Good Anesthesia Complications:: None Swallowing reflex intact?: Yes Cyanosis?: No Blood Pressure: 154/92 Pulse Rate: 73 Temperature: 98.3 F Mental Status: Alert & Oriented Pain level:: 5 Nausea and/or vomitting:: None Intake, IV Amount: 0
[2023-04-30 07:20] VITALS: BP 154/92; PULSE 73; TEMP 36.8
== END 2023-04-29 16:30 | disposition home or self-care (01) ==
PROVIDERS: PCP Family Medicine; Visit Provider Surgery
PROC: 0WQF4ZZ Repair Abdominal Wall, Percutaneous Endoscopic Approach (ICD-10-PCS; principal; 2023-04-29 10:30)
DX: K43.6 Other and unspecified ventral hernia with obstruction, without gangrene (principal); K66.0 Peritoneal adhesions (postprocedural) (postinfection); K43.2 Incisional hernia without obstruction or gangrene; Z79.899 Other long term (current) drug therapy; E11.9 Type 2 diabetes mellitus without complications
CPT/HCPCS: 49614; 81001; 82962; 88302; 96374; C1781; J2405

== ENCOUNTER → 2023-08-12 01:10 | Outpatient (CLI) | payer MEDICARE, OTHER, SELFPAY ==
[2023-08-12 16:27] LABS: Basophils # 0.1 K/mm3 (0-0.2); Basophils % 0.7 % (0.1-2.0); Eosinophils # 0.1 K/mm3 (0.0-0.4); Eosinophils % 1.3 % (0.1-12.0); Hematocrit 46.2 % (37.0-47.0); Hemoglobin 14.8 g/dL (12.2-16.2); Lymphocytes # 2.5 K/mm3 (0.7-4.5); Lymphocytes % 30.2 % (10-50); Mean Corpuscular Hemoglobin 30.7 pg (27.0-31.2); Mean Corpuscular Volume 96.1 fl (81-99); Mean Platelet Volume 9.5 fl (7.4-10.4); Monocytes # 0.8 K/mm3 (0.1-1.0); Monocytes % 9.7 % (1.7-9.3); Neutrophils # 4.8 K/mm3 (1.8-7.8); Neutrophils % 58.1 % (37.0-80.0); Platelet Count 316 K/mm3 (142-424); Red Blood Count 4.81 M/mm3 (4.20-5.40); Red Cell Distribution Width 13.7 % (11.5-17.5); White Blood Count 8.3 K/mm3 (4.8-10.8)
[2023-08-12 16:32] LABS: Alanine Aminotransferase 40 U/L (12-78); Albumin Level 4.3 g/dl (3.5-5.0); Albumin/Globulin Ratio 1.6 (1.1-1.8); Alkaline Phosphatase 78 U/L (38-126); Anion Gap 15.1 mEq/L (5-15); Aspartate Amino Transferase 55 U/L (14-36); Bilirubin,Total 0.8 mg/dl (0.2-1.3); Blood Urea Nitrogen 11 mg/dl (7-17); Calcium 10.6 mg/dl (8.4-10.2); Carbon Dioxide 28 mmol/L (22.0-30.0); Chloride 102 mmol/L (98-107); Chol/HDL Ratio 2.7 (1-3.5); Cholesterol 149 mg/dl (140-200); Estimated Glomerular Filt Rate 83 ml/min (>60); GFR (African American) 101 ML/MIN (>60); Globulin 2.7 g/dL (1.3-3.2); Glucose 155 mg/dl (74-100); HDL Cholesterol 56 mg/dl (40-60); Potassium 5.1 mmoL/L (3.5-5.1); Sodium 140 mmol/L (136-145); Triglycerides 152 mg/dl (30-150); VLDL Cholesterol 30 mg/dL (0-40)
[2023-08-12 16:43] LABS: Direct LDL Cholesterol 68.54 mg/dL (100-129); Hemoglobin A1C 6.5 % (4.0-6.0)
== END ==
PROVIDERS: PCP Family Medicine; Visit Provider Family Medicine
DX: I10 Essential (primary) hypertension (principal); E11.9 Type 2 diabetes mellitus without complications; Z79.84 Long term (current) use of oral hypoglycemic drugs
CPT/HCPCS: 80053; 80061; 83036; 85025

== ENCOUNTER 2023-11-22 10:04 | Outpatient (CLI) | payer MEDICARE, OTHER, SELFPAY ==
--- NOTE | 2023-11-22 10:05 | MM_ITS ---
PROCEDURE INFORMATION: Exam: MG Bilateral Screening 3D Mammography Exam date and time: 11/22/2023 9:59 AM Age: 68 years old Clinical indication: Screening examination TECHNIQUE: Imaging protocol: Bilateral Screening tomosynthesis and 2D mammography including computer-aided detection (CAD) when performed. COMPARISON: 1. MG MM DIG SCREENING MAMM BI W/CAD 11/06/2022 1:01 PM 2. MG MM DIG SCREENING MAMM BI W/CAD 10/27/2021 4:21 PM FINDINGS: MAMMOGRAPHY: Breast composition: There are scattered areas of fibroglandular density. Mass: None. Architectural distortion: None. Calcifications: No suspicious calcifications. Asymmetric density: None. Skin thickening: None. Axillary adenopathy: None. IMPRESSION: No mammographic evidence of malignancy. Annual screening is recommended unless otherwise clinically indicated. ASSESSMENT: BI-RADS Category 1: Negative
== END 2023-11-22 23:59 ==
LOC: RAD 10:05
PROVIDERS: PCP Family Medicine; Visit Provider Family Medicine
DX: Z12.31 Encounter for screening mammogram for malignant neoplasm of breast (principal)
CPT/HCPCS: 77063; 77067

== ENCOUNTER 2023-11-26 06:45 | Day surgery (SDC) | payer MEDICARE, OTHER, SELFPAY ==
[2023-11-21 16:18] VITALS: BMI 35.4
[2023-11-26] MEDS: CYCLOPENTOLATE 2% OPHTH SOLN 2ML BOTTLE OP ×3 (07:10→07:20)
[2023-11-26] MEDS: TETRACAINE 0.5% OPTH SOL 15ML OP ×3 (07:10→07:20)
[2023-11-26 07:14] VITALS: BP 139/88; PULSE 60; RESP 18; TEMP 36.1; O2SAT 93
[2023-11-26] MEDS: PHENYLEPHRINE 2.5% OPHTH SOLN 2ML 0.0500000000000000028 ML OP ×3 (07:15→07:20)
[2023-11-26] MEDS: LACTATED RINGERS 1000ML 1,000 ML 25 ML IV (07:22)
[2023-11-26 08:38] VITALS: BP 157/93; PULSE 59; RESP 18; O2SAT 98
[2023-11-26] MEDS: MIDAZOLAM 2MG/2ML VIAL 1 MG IV (08:38)
[2023-11-26 08:43] VITALS: BP 154/90; PULSE 57; RESP 17; O2SAT 100
[2023-11-26] MEDS: LIDOCAINE 1% PF 2ML AMPULE 2 ML IJ (08:45)
[2023-11-26 08:48] VITALS: BP 152/87; PULSE 57; RESP 18; O2SAT 100
[2023-11-26] MEDS: TIMOLOL 0.5% OPTH SOLN 5ML OP (08:49)
[2023-11-26] MEDS: TOBRAMYCIN/DEX OPTH SUSP 2.5ML OP (08:49)
[2023-11-26 08:53] VITALS: BP 152/88; PULSE 58; RESP 19; O2SAT 100
[2023-11-26 08:55] VITALS: BP 153/95; PULSE 64; RESP 16; TEMP 36.6; O2SAT 98
[2023-11-26 11:33] LABS: POC Glucose,Bedside 156 (70-110)
== END 2023-11-26 09:09 | disposition home or self-care (01) ==
PROVIDERS: PCP Family Medicine; Visit Provider Ophthalmology
PROC: (CPT 66984; principal; 2023-11-26 08:30)
DX: E11.36 Type 2 diabetes mellitus with diabetic cataract (principal); H25.9 Unspecified age-related cataract
CPT/HCPCS: 66984; 82962; V2632

== ENCOUNTER 2023-12-10 06:41 | Day surgery (SDC) | payer MEDICARE, OTHER, SELFPAY ==
[2023-12-04 12:13] VITALS: BMI 34.9
[2023-12-10] MEDS: CYCLOPENTOLATE 2% OPHTH SOLN 2ML BOTTLE OP ×3 (07:13→07:15)
[2023-12-10] MEDS: TETRACAINE 0.5% OPTH SOL 15ML OP ×3 (07:13→07:14)
[2023-12-10] MEDS: PHENYLEPHRINE 2.5% OPHTH SOLN 2ML 0.0500000000000000028 ML OP ×3 (07:14→07:15)
[2023-12-10 07:17] VITALS: BP 146/78; PULSE 59; RESP 18; TEMP 36.2; O2SAT 96
[2023-12-10] MEDS: LACTATED RINGERS 1000ML 1,000 ML 25 ML IV (07:17)
[2023-12-10 08:17] VITALS: BP 172/88; PULSE 59; RESP 17; O2SAT 96
[2023-12-10] MEDS: MIDAZOLAM 2MG/2ML VIAL 1 MG IV (08:17)
[2023-12-10 08:22] VITALS: BP 153/98; PULSE 58; RESP 17; O2SAT 93
[2023-12-10] MEDS: LIDOCAINE 1% PF 2ML AMPULE 2 ML IJ (08:23)
[2023-12-10] MEDS: TOBRAMYCIN/DEX OPTH SUSP 2.5ML OP (08:24)
[2023-12-10] MEDS: TIMOLOL 0.5% OPTH SOLN 5ML OP (08:24)
[2023-12-10 08:27] VITALS: BP 159/90; PULSE 58; RESP 19; O2SAT 94
[2023-12-10 08:33] VITALS: BP 148/96; PULSE 56; RESP 18; TEMP 36.3; O2SAT 96
[2023-12-10 08:45] VITALS: BP 148/96; PULSE 56; RESP 18; O2SAT 96
[2023-12-10 14:49] LABS: POC Glucose,Bedside 145 (70-110)
== END 2023-12-10 08:45 | disposition home or self-care (01) ==
PROVIDERS: PCP Family Medicine; Visit Provider Ophthalmology
PROC: (CPT 66984; principal; 2023-12-10 08:30)
DX: E11.36 Type 2 diabetes mellitus with diabetic cataract (principal); H25.9 Unspecified age-related cataract
CPT/HCPCS: 66984; 82962; V2632

== ENCOUNTER 2023-12-12 20:32 | Outpatient (CLI) | payer MEDICARE, OTHER, SELFPAY ==
[2023-12-12 17:10] LABS: Basophils # 0.1 K/mm3 (0-0.2); Eosinophils # 0.1 K/mm3 (0.0-0.4); Eosinophils % 1.1 % (0.1-12.0); Hematocrit 46.7 % (37.0-47.0); Hemoglobin 15.8 g/dL (12.2-16.2); Lymphocytes # 3.1 K/mm3 (0.7-4.5); Lymphocytes % 38.9 % (10-50); Mean Corpuscular HGB Conc 33.8 g/dL (31.8-35.4); Mean Corpuscular Hemoglobin 31.4 pg (27.0-31.2); Mean Corpuscular Volume 93.1 fl (81-99); Monocytes # 0.7 K/mm3 (0.1-1.0); Monocytes % 9.3 % (1.7-9.3); Neutrophils # 3.9 K/mm3 (1.8-7.8); Neutrophils % 49.7 % (37.0-80.0); Platelet Count 244 K/mm3 (142-424); Red Blood Count 5.01 M/mm3 (4.20-5.40); Red Cell Distribution Width 12.4 % (11.5-17.5); White Blood Count 7.8 K/mm3 (4.8-10.8)
[2023-12-12 17:24] LABS: Chloride 103 mmol/L (98-107); Sodium 137 mmol/L (136-145)
[2023-12-12 17:25] LABS: Potassium 4.5 mmoL/L (3.5-5.1)
[2023-12-12 17:27] LABS: Alanine Aminotransferase 30 U/L (12-78); Albumin/Globulin Ratio 1.5 (1.1-1.8); Alkaline Phosphatase 86 U/L (38-126); Anion Gap 11.5 mEq/L (5-15); Aspartate Amino Transferase 37 U/L (14-36); Bilirubin,Total 0.6 mg/dl (0.2-1.3); Blood Urea Nitrogen 10 mg/dl (7-17); Calcium 10.5 mg/dl (8.4-10.2); Carbon Dioxide 27 mmol/L (22.0-30.0); Cholesterol 132 mg/dl (140-200); Estimated Glomerular Filt Rate 83 ml/min (>60); GFR (African American) 101 ML/MIN (>60); Globulin 2.6 g/dL (1.3-3.2); Glucose 150 mg/dl (74-100); Total Protein,Serum 6.6 g/dl (6.3-8.2); Triglycerides 199 mg/dl (30-150); VLDL Cholesterol 40 mg/dL (0-40)
[2023-12-12 17:28] LABS: Chol/HDL Ratio 2.8 (1-3.5); HDL Cholesterol 48 mg/dl (40-60)
[2023-12-12 17:47] LABS: Direct LDL Cholesterol 62.34 mg/dL (100-129)
[2023-12-12 19:52] LABS: Hemoglobin A1C 6.4 % (4.0-6.0)
== END 2023-12-12 23:59 ==
LOC: LAB.DROPOF 20:32
PROVIDERS: PCP Family Medicine; Visit Provider Family Medicine
DX: I10 Essential (primary) hypertension (principal); E11.9 Type 2 diabetes mellitus without complications; Z79.899 Other long term (current) drug therapy; Z79.84 Long term (current) use of oral hypoglycemic drugs
CPT/HCPCS: 80053; 80061; 83036; 85025

== ENCOUNTER 2024-01-22 08:24 | Outpatient (CLI) | payer MEDICARE, OTHER, SELFPAY ==
--- NOTE | 2024-01-22 08:25 | XR_ITS ---
FINAL REPORT TECHNIQUE: Bone mineral density was calculated of the lumbar spine and hip. CLINICAL HISTORY: osteoporosis COMPARISON: None FINDINGS: Using L1-4, the bone mineral density of the spine is 1.07 g/cm2, corresponding to T-score of 0.2. Using the left hip, the bone mineral density of the femoral neck is 0.6 g/cm2, corresponding to a T-score of -2.2. NOTE: T-score: Standard deviation compared with peak bone mass of young adult mean. *Following the recommendations of the International Society of Bone densitometry, classification of hip BMD is based on the lower of two T-scores; total hip or femoral neck. IMPRESSION: Diminished bone mineral density of the left hip consistent with low bone density. Normal bone mineral density of the lumbar spine. Reviewed, Interpreted and Dictated by Travis Bui III, MD Transcribed by Magnolia Arreola Authenticated and [facility]
== END 2024-01-22 23:59 ==
PROVIDERS: PCP Family Medicine; Visit Provider Family Medicine
DX: M81.0 Age-related osteoporosis without current pathological fracture (principal)
CPT/HCPCS: 77080

== ENCOUNTER 2024-02-10 12:35 | Emergency (ER) | payer MEDICARE, OTHER, SELFPAY ==
[2024-02-10 13:20] VITALS: BP 145/91; PULSE 90; RESP 14; TEMP 36.6; O2SAT 96; BMI 35.4
[2024-02-10 13:45] LABS: Basophils # 0.1 K/mm3 (0-0.2); Basophils % 0.8 % (0.1-2.0); Eosinophils # 0.1 K/mm3 (0.0-0.4); Eosinophils % 0.7 % (0.1-12.0); Hematocrit 44.9 % (37.0-47.0); Hemoglobin 14.7 g/dL (12.2-16.2); Lymphocytes # 2.9 K/mm3 (0.7-4.5); Lymphocytes % 30.6 % (10-50); Mean Corpuscular HGB Conc 32.8 g/dL (31.8-35.4); Mean Corpuscular Hemoglobin 30.9 pg (27.0-31.2); Mean Corpuscular Volume 94.5 fl (81-99); Mean Platelet Volume 8.8 fl (7.4-10.4); Monocytes # 0.7 K/mm3 (0.1-1.0); Monocytes % 7.1 % (1.7-9.3); Neutrophils # 5.7 K/mm3 (1.8-7.8); Neutrophils % 60.8 % (37.0-80.0); Platelet Count 266 K/mm3 (142-424); Red Blood Count 4.76 M/mm3 (4.20-5.40); Red Cell Distribution Width 12.9 % (11.5-17.5); White Blood Count 9.4 K/mm3 (4.8-10.8)
[2024-02-10 13:47] LABS: Chloride 108 mmol/L (98-107); Potassium 4.2 mmoL/L (3.5-5.1); Sodium 139 mmol/L (136-145)
[2024-02-10 13:49] LABS: Alanine Aminotransferase 34 U/L (12-78); Aspartate Amino Transferase 41 U/L (14-36); Bilirubin,Total 0.4 mg/dl (0.2-1.3); Blood Urea Nitrogen 11 mg/dl (7-17); Creatinine Clearance Estimated 77 mL/min (50-200); Estimated Glomerular Filt Rate 83 ml/min (>60); GFR (African American) 101 ML/MIN (>60)
[2024-02-10 13:50] LABS: Albumin Level 4.1 g/dl (3.5-5.0); Albumin/Globulin Ratio 1.6 (1.1-1.8); Alkaline Phosphatase 65 U/L (38-126); Anion Gap 9.2 mEq/L (5-15); Calcium 11.2 mg/dl (8.4-10.2); Carbon Dioxide 26 mmol/L (22.0-30.0); Globulin 2.5 g/dL (1.3-3.2); Glucose 201 mg/dl (74-100); Total Protein,Serum 6.6 g/dl (6.3-8.2)
[2024-02-10 13:51] LABS: Activated Partial Thrombo Time 25.9 seconds (22.8-30.6); INR 0.99 (0.9-1.1); Prothrombin Time 10.7 seconds (10.1-12.5)
[2024-02-10] MEDS: OXYMETAZOLINE NASAL SPRAY 0.05% 15ML NS (13:55)
--- NOTE | 2024-02-10 14:08 | HMH.EDGENADL ---
Discharge Plan Disposition Patient Disposition: Home, Self-Care Condition: Good Prescriptions Prescriptions: No Action lansoprazole 30 mg capsule,delayed release(DR/EC) 30 mg PO DAILY 90 Days Qty: 90 0RF folic acid 1 mg tablet See Rx Instructions .ROUTE .COMPLEX Qty: 90 3RF Dose Instruction: TAKE 1 TABLET BY MOUTH EVERY DAY Rx Instructions: TAKE 1 TABLET BY MOUTH EVERY DAY atorvastatin [Lipitor] 20 mg tablet 20 mg PO DAILY 90 Days Qty: 90 1RF lisinopril 20 mg tablet 20 mg PO DAILY 90 Days Qty: 90 1RF conjugated estrogens 0.625 mg tablet 0.625 mg PO DAILY Qty: 90 1RF meloxicam 15 mg tablet 15 mg PO DAILY 90 Days Qty: 90 1RF metformin 500 mg tablet extended release 24 hr 500 mg PO BID 90 Days Qty: 270 0RF Rx Instructions: Pt is to take 2 AM and 1 QHS alendronate 35 mg tablet 35 mg PO WEEKLY 90 Days Qty: 13 0RF diltiazem HCl 240 mg capsule,ext.rel 24h degradable 240 mg PO DAILY 90 Days Qty: 90 3RF tramadol 50 mg tablet 50 mg PO BID 30 Days Qty: 60 2RF gabapentin 100 mg capsule See Rx Instructions .ROUTE .COMPLEX Qty: 60 2RF Dose Instruction: TAKE 1 CAPSULE 2 TIMES EACH DAY FOR PAIN Rx Instructions: TAKE 1 CAPSULE 2 TIMES EACH DAY FOR PAIN calcium carbonate 600 MG tablet 600 mg PO DAILY Referrals Follow up/Referrals: Matias Maxwell MD [Physician] - See instructions Shukri Martel MD [Physician] - See instructions Piotr Eason MD [Primary Care Provider] - See instructions Activity Restrictions/Add. Instructions Additional Instructions/Restrictions: You were evaluated in the Emergency Department. Please follow up with ENT tomorrow at 11:30 am in outpatient clinic. Please do not blow your nose. Open your mouth with sneezing. Apply pressure to the bridge of your nose firmly and tilt your head forward if you have recurrence of nose bleeds. Return for new worsening symptoms. Clinical Impressions Clinical Impression: Epistaxis, recurrent Instructions Patient Instructions: DI for Nosebleed Discharge ED Provider: Antonette Najera General Adult HPI General Chief complaint: Epistaxis Stated complaint: severe nose bleeds Time Seen by Provider: 02/10/24 13:12 Mode of Arrival: Ambulatory Source of Information: Patient and EMS Limitations: No Limitations Description of Symptoms (Recalled from ER Triage Doc. by RN): pt states she has a severe episode of epistaxis this am. pt reports she had never had a nose bleed until the last two months. pt states in the last 2mo. she has had four that increasingly get worse. pt is not having any bleeding at this time. History of Present Illness HPI narrative: This patient is a 68-year-old female with a history of hypertension, hyperlipidemia, rheumatoid arthritis, and type 2 diabetes presenting with concern for epistaxis. Patient reports that over the last 2 months, she has had intermittent episodes of epistaxis. She states that they have become more frequent and have been getting worse. Today, she notes that this was the first time she felt it draining down her throat as well. She has that it bleeds from both sides. No nasal trauma or other concerns. I called her primary care provider, Dr. Eason, who saw her today for this and he advised that this started after she initiated taking Flonase. He advised that she stop taking that. He advised that he told her if symptoms became severe to come to the ED for evaluation, so she presented today because it started bleeding again after she had left the clinic. Bleeding had stopped prior to arrival. No other concerns noted at this time. Related Data Home Medications Medication Instructions Recorded Confirmed calcium carbonate 600 mg calcium 600 mg PO DAILY Supplement 09/13/20 02/10/24 (1,500 mg) tablet Previous Rx's Medication Instructions Recorded lansoprazole 30 mg capsule,delayed 30 mg PO DAILY stomach 90 days #90 06/04/23 release caps folic acid 1 mg tablet See Rx Instructions .Route 08/26/23 .COMPLEX #90 tabs atorvastatin 20 mg tablet (Lipitor) 20 mg PO DAILY Cholesterol 90 days 09/02/23 #90 tabs conjugated estrogens 0.625 mg 0.625 mg PO DAILY hormones #90 tabs 09/02/23 tablet lisinopril 20 mg tablet 20 mg PO DAILY blood pressure 90 09/02/23 days #90 tabs meloxicam 15 mg tablet 15 mg PO DAILY Pain 90 days #90 11/06/23 tabs metformin 500 mg tablet,extended 500 mg PO BID 90 days #270 tabs 12/13/23 release 24 hr alendronate 35 mg tablet 35 mg PO WEEKLY Osteoporosis 90 12/27/23 days #13 tabs diltiazem HCl 240 mg 240 mg PO DAILY bp 90 days #90 caps 01/08/24 capsule,extended release 24 hr, controlled gabapentin 100 mg capsule See Rx Instructions .Route 01/14/24 .COMPLEX #60 caps tramadol 50 mg tablet 50 mg PO BID Pain 30 days #60 tabs 01/14/24 Allergies Allergy/AdvReac Type Severity Reaction Status Date / Time No Known Allergies Allergy Verified 02/10/24 08:53 [facility] Disclaimer: The information contained in this section may have been updated after the patient was seen, as this information can be updated by other users. Medical History Hyperlipidemia Hypertension Surgical menopause, symptomatic Type 2 diabetes mellitus Rheumatoid arthritis Aphthous ulcer Osteoporosis Hearing loss Surgical History History of hernia repair History of delivery History of hysterectomy History of colonoscopy History of cholecystectomy Family History Grandmother Coronary artery disease Social History Smoking Status: Never smoker alcohol intake: never substance use type: denies use current occupational status: disabled Travel in the last 8 weeks: None household members: spouse housing: house caffeine: Yes ROS Obtained: Yes All systems reviewed & no additional complaints except as documented Physical Exam General General appearance: alert and in no apparent distress Head Head exam: atraumatic and normocephalic Eye Eye exam: Present normal appearance, PERRL and EOMI ENT ENT exam: Present normal oropharynx, mucous membranes moist, normal external ear exam and other (Dried blood in both nares with scant blood in the posterior oropharynx. No active bleeding) Neck Neck exam: Present normal inspection, full ROM and trachea midline; Absent tenderness Chest Chest inspection: Present normal inspection and symmetric chest wall rise; Absent tenderness Respiratory Respiratory exam: Present normal lung sounds bilaterally; Absent respiratory distress, wheezes, stridor or accessory muscle use Cardiovascular Cardiovascular exam: Present regular rate and normal rhythm Abdominal Exam Abdominal exam: Present soft; Absent distention, tenderness or guarding Extremities Exam Extremities exam: Present normal inspection, full ROM and normal capillary refill; Absent tenderness or edema Back Exam Back exam: Present normal inspection and full ROM; Absent tenderness Neurological Exam Neurological exam: Present alert, oriented X3, CN II-XII intact and normal gait; Absent motor sensory deficit Psychiatric Psychiatric exam: Present normal affect and normal mood Skin Skin exam: Present warm and dry Medical Decision Making Medical Records Medical records reviewed: Yes I reviewed the patient's medical records. Luis Inquiry Pt receiving controlled substance: No Vital Signs: 02/10/24 13:20 Temperature 97.9 F Temperature Source Oral Pulse Rate [Left] 90 Respiratory Rate 14 Blood Pressure [Right Arm] 145/91 H Blood Pressure Mean [Right Arm] 109 Blood Pressure Source [Right Arm] Automatic Cuff Blood Pressure Position [Right Arm] Sitting 02 Sat by Pulse Oximetry 96 Lab Data Lab results reviewed: Yes I reviewed the patient's lab results. Lab Results 02/10/24 13:26: WBC 9.4, RBC 4.76, Hgb 14.7, Hct 44.9, MCV 94.5, MCH 30.9, MCHC 32.8, RDW 12.9, Plt Count 266, MPV 8.8, Neut % (Auto) 60.8, Lymph % (Auto) 30.6, [place] % (Auto) 7.1, Eos % (Auto) 0.7, Baso % (Auto) 0.8, Neut # (Auto) 5.7, Lymph # (Auto) 2.9, [place] # (Auto) 0.7, Eos # (Auto) 0.1, Baso # (Auto) 0.1, PT 10.7, INR 0.99, APTT 25.9, Sodium 139, Potassium 4.2, Chloride 108 H, Carbon Dioxide 26, Anion Gap 9.2, BUN 11, Creatinine 0.70, Estimated Creat Clear 77, Estimated GFR 83, Est GFR ( Amer) 101, Glucose 201 H, Calcium 11.2 H, Total Bilirubin 0.4, AST 41 H, ALT 34, Alkaline Phosphatase 65, Total Protein 6.6, Albumin 4.1, Globulin 2.5, Albumin/Globulin Ratio 1.6 02/10/24 13:26 02/10/24 13:26 Orders (Tests/Meds): ED MEDICATIONS Discontinued Medications Generic Name Dose Route Start Last Admin Trade Name Freq PRN Reason Stop Dose Admin Oxymetazoline HCl 1 ml 02/10/24 13:18 02/10/24 13:55 Oxymetazoline Nasal [place] 0.05% 15ml NS 02/10/24 13:19 1 ml ONCE ONE Administration ORDERS Category Date Time Status Activated Partial Thrombo Time Stat Lab 02/10/24 13:26 Completed Complete Blood Count Auto Diff Stat Lab 02/10/24 13:26 Completed Comprehensive Metabolic Panel Stat Lab 02/10/24 13:26 Completed Prothrombin Time INR Stat Lab 02/10/24 13:26 Completed Medical Decision Narrative: In summary, this patient is a 68-year-old female presenting to the Emergency Department for evaluation of recurrent epistaxis. Differential diagnoses considered include but are not limited to anterior nosebleed, posterior nosebleed, thrombocytopenia, coagulopathy. Ruling out the most morbid conditions drove assessment. On exam, the patient is well-appearing with no active bleeding at this time. She has dried blood in both nares as well as blood in her posterior oropharynx. She is mildly hypertensive but systolic is less than 150. Patient labs were obtained that did not demonstrate any concern such as thrombocytopenia or coagulopathy. She had no recurrence of bleeding while in the emergency department. I called and had an interactive discussion with her primary care provider who advised he was hoping to get her to follow-up closely with ENT. I called ENT office and got the patient scheduled for an appointment at 11:30 in the morning. I advised the patient of this appointment and also gave her sinus precautions and Afrin. She was given instructions for supportive management of epistaxis at home as well as strict return precautions. Patient was discharged in stable condition after all questions were answered. Critical Care Critical Care Time Critical Care Time: No
[2024-02-10 14:19] VITALS: BP 151/90; PULSE 89; RESP 14; TEMP 36.6
== END 2024-02-10 14:22 | disposition home or self-care (01) ==
PROVIDERS: Emergency Provider Emergency Medicine; PCP Family Medicine
DX: R04.0 Epistaxis (principal); I10 Essential (primary) hypertension; E78.5 Hyperlipidemia, unspecified; M06.9 Rheumatoid arthritis, unspecified; E11.9 Type 2 diabetes mellitus without complications; Z79.84 Long term (current) use of oral hypoglycemic drugs
CPT/HCPCS: 80053; 85025; 85610; 85730; 99283

== ENCOUNTER 2024-03-05 14:24 | Outpatient (CLI) | payer MEDICARE, OTHER, SELFPAY ==
--- NOTE | 2024-03-05 14:24 | CT_ITS ---
FINAL REPORT CLINICAL HISTORY: history of recurrent epistaxsis FINDINGS: There is mild mucoperiosteal thickening in the left maxillary sinus. There is soft tissue bridging the left ostiomeatal unit. Paranasal sinuses are otherwise clear. There is no fracture. There are no air-fluid levels. IMPRESSION: Mild sinus disease. Reviewed, Interpreted and Dictated by James Echavarria MD Transcribed by Yen Mabry Authenticated and . [facility]
== END 2024-03-05 23:59 | disposition home or self-care (01) ==
LOC: RAD 14:24
PROVIDERS: PCP Family Medicine; Visit Provider Nurse Practitioner
DX: R04.0 Epistaxis (principal)
CPT/HCPCS: 70486

== ENCOUNTER 2024-03-12 18:00 | Outpatient (CLI) | payer MEDICARE, OTHER, SELFPAY ==
[2024-03-12 17:19] LABS: Basophils # 0.1 K/mm3 (0-0.2); Basophils % 0.4 % (0.1-2.0); Eosinophils # 0.1 K/mm3 (0.0-0.4); Hematocrit 43.8 % (37.0-47.0); Lymphocytes # 4.1 K/mm3 (0.7-4.5); Lymphocytes % 36.8 % (10-50); Mean Corpuscular Hemoglobin 30.4 pg (27.0-31.2); Mean Platelet Volume 9.5 fl (7.4-10.4); Monocytes # 0.8 K/mm3 (0.1-1.0); Monocytes % 7.5 % (1.7-9.3); Neutrophils # 6.1 K/mm3 (1.8-7.8); Neutrophils % 54.2 % (37.0-80.0); Platelet Count 298 K/mm3 (142-424); Red Blood Count 4.61 M/mm3 (4.20-5.40); Red Cell Distribution Width 12.9 % (11.5-17.5); White Blood Count 11.2 K/mm3 (4.8-10.8)
[2024-03-12 17:25] LABS: Alanine Aminotransferase 32 U/L (12-78); Albumin Level 4.4 g/dl (3.5-5.0); Albumin/Globulin Ratio 1.8 (1.1-1.8); Alkaline Phosphatase 74 U/L (38-126); Anion Gap 11.7 mEq/L (5-15); Aspartate Amino Transferase 45 U/L (14-36); Bilirubin,Total 0.8 mg/dl (0.2-1.3); Blood Urea Nitrogen 12 mg/dl (7-17); Carbon Dioxide 28 mmol/L (22.0-30.0); Chloride 102 mmol/L (98-107); Chol/HDL Ratio 2.8 (1-3.5); Cholesterol 153 mg/dl (140-200); Estimated Glomerular Filt Rate 71 ml/min (>60); GFR (African American) 86 ML/MIN (>60); Globulin 2.5 g/dL (1.3-3.2); Glucose 142 mg/dl (74-100); HDL Cholesterol 55 mg/dl (40-60); Potassium 4.7 mmoL/L (3.5-5.1); Sodium 137 mmol/L (136-145); Total Protein,Serum 6.9 g/dl (6.3-8.2); Triglycerides 195 mg/dl (30-150); VLDL Cholesterol 39 mg/dL (0-40)
[2024-03-12 17:27] LABS: Creatinine,Urine Random 18 mg/dL (Not Estab.)
[2024-03-12 17:30] LABS: Microalbumin < 6.000 mg/L (0-16.7)
[2024-03-12 17:36] LABS: Direct LDL Cholesterol 63.61 mg/dL (100-129)
[2024-03-12 17:43] LABS: Hemoglobin A1C 6.2 % (4.0-6.0)
== END 2024-03-12 23:59 | disposition home or self-care (01) ==
LOC: LAB.DROPOF 03-16 08:23
PROVIDERS: PCP Family Medicine; Visit Provider Family Medicine
DX: E11.9 Type 2 diabetes mellitus without complications (principal); I10 Essential (primary) hypertension; Z79.899 Other long term (current) drug therapy
CPT/HCPCS: 80053; 80061; 82043; 82570; 83036; 85025

== ENCOUNTER 2024-08-26 09:32 | Outpatient (CLI) | payer MEDICARE, OTHER, SELFPAY | END 2024-08-26 23:59 | disposition home or self-care (01) | LOC: LAB.DROPOF 08-27 09:32 | PROVIDERS: PCP Family Medicine; Visit Provider Family Medicine | DX: R39.9 Unspecified symptoms and signs involving the genitourinary system (principal) | CPT/HCPCS: 87086 ==

== ENCOUNTER 2024-09-07 09:40 | Outpatient (CLI) | payer MEDICARE, OTHER, SELFPAY ==
[2024-09-07 11:02] LABS: Intact Parathyroid Hormone 98.4 pg/mL (7.5-53.5)
== END 2024-09-07 23:59 | disposition home or self-care (01) ==
PROVIDERS: PCP Family Medicine; Visit Provider Family Medicine
DX: E83.52 Hypercalcemia (principal)
CPT/HCPCS: 36415; 83970

== ENCOUNTER 2024-09-28 08:00 | Outpatient (CLI) | payer MEDICARE, OTHER, SELFPAY ==
--- NOTE | 2024-09-28 08:01 | NM_ITS ---
FINAL REPORT CLINICAL HISTORY: elevated parathyroid hormone 8:40AM 21.2 MCI TC SESTAMIBI COMPARISON: none FINDINGS: 21.2 mCi Technetium Sestamibi was administered. Planar imaging was performed early and two-hour delayed of the neck and upper thorax. Early imaging shows physiologic uptake within the upper neck involving the salivary glands and lower neck involving the thyroid gland. On delayed imaging there is no abnormal retained activity in the lower neck or mediastinum to localize parathyroid adenoma. IMPRESSION: No scintigraphic evidence of parathyroid adenoma. Reviewed, Interpreted and Dictated by Travis Bui III, MD Transcribed by Paris Taylor Authenticated and [facility]
[2024-09-28] MEDS: SODIUM CHLORIDE 0.9% 10ML SYR (RAD ONLY) 10 ML IV (09:39)
[2024-09-28] MEDS: ISO TC99M (SESTAMIBI);1 DOSE VIAL IV (09:39)
== END 2024-09-28 23:59 | disposition home or self-care (01) ==
LOC: RAD 08:01
PROVIDERS: PCP Family Medicine; Visit Provider Student in an Organized Health Care Education/Training Program
DX: R79.89 Other specified abnormal findings of blood chemistry (principal)
CPT/HCPCS: 78070; A9500

== ENCOUNTER 2024-10-07 12:28 | Outpatient (CLI) | payer MEDICARE, OTHER, SELFPAY ==
[2024-10-07 13:25] LABS: Anion Gap 11.7 mEq/L (5-15); Blood Urea Nitrogen 16 mg/dl (7-17); Carbon Dioxide 27 mmol/L (22.0-30.0); Chloride 105 mmol/L (98-107); Estimated Glomerular Filt Rate 71 ml/min (>60); GFR (African American) 86 ML/MIN (>60); Glucose 155 mg/dl (74-100); Potassium 4.7 mmoL/L (3.5-5.1); Sodium 139 mmol/L (136-145)
[2024-10-07 13:35] LABS: Intact Parathyroid Hormone 102.8 pg/mL (7.5-53.5)
[2024-10-07 13:41] LABS: Free T4 (Free Thyroxine) 0.88 ng/dl (0.78-2.19)
[2024-10-07 13:43] LABS: 25-OH Vitamin D, Total 53.7 ng/mL (30-100)
[2024-10-07 13:54] LABS: Hemoglobin A1C 6.5 % (4.0-6.0); Thyroid Stimulating Hormone 1.32 uIU/mL (0.465-4.68)
== END 2024-10-07 23:59 | disposition home or self-care (01) ==
LOC: LAB 12:31
PROVIDERS: PCP Family Medicine; Visit Provider Student in an Organized Health Care Education/Training Program
DX: E83.52 Hypercalcemia (principal); M81.0 Age-related osteoporosis without current pathological fracture; R53.83 Other fatigue; E11.9 Type 2 diabetes mellitus without complications
CPT/HCPCS: 36415; 80048; 82306; 83036; 83970; 84439; 84443

== ENCOUNTER 2024-12-11 10:20 | Outpatient (CLI) | payer MEDICARE, OTHER, SELFPAY ==
--- NOTE | 2024-12-11 10:22 | MM_ITS ---
PROCEDURE INFORMATION: Exam: MG Bilateral Screening 3D Mammography Exam date and time: 12/11/2024 10:28 AM Age: 69 years old Clinical indication: Screening. No family history of breast cancer. TECHNIQUE: Imaging protocol: Bilateral Screening tomosynthesis and 2D mammography including computer-aided detection (CAD) when performed. COMPARISON: 1. MG MM DIG SCREENING MAMM BI W/CAD 11/22/2023 9:59 AM 2. MG MM DIG SCREENING MAMM BI W/CAD 11/06/2022 1:01 PM 3. MG MM DIG SCREENING MAMM BI W/CAD 10/27/2021 4:21 PM 4. MG MM DIG SCREENING MAMM BI W/CAD 10/05/2020 9:36 AM FINDINGS: MAMMOGRAPHY: Breast composition: There are scattered areas of fibroglandular density. Mass: Oval 0.8 cm mass in the left retroareolar region, lower inner quadrant, anterior 3rd, to 4 cm from the nipple, CC image [id number] frame 18 and MLO image [id number] frame 26. Architectural distortion: None. Calcifications: No suspicious calcifications. Asymmetric density: None. Skin thickening: None. Axillary adenopathy: None. IMPRESSION: Patient will be recalled for a left sonography for further evaluation of a mass. ASSESSMENT: BI-RADS Category 0: Incomplete: Need Additional Imaging Evaluation.
== END 2024-12-11 23:59 | disposition home or self-care (01) ==
LOC: RAD 10:21
PROVIDERS: PCP Family Medicine; Visit Provider Family Medicine
DX: Z12.31 Encounter for screening mammogram for malignant neoplasm of breast (principal)
CPT/HCPCS: 77063; 77067

== ENCOUNTER 2024-12-18 13:17 | Outpatient (CLI) | payer MEDICARE, SELFPAY ==
--- NOTE | 2024-12-18 13:18 | US_ITS ---
PROCEDURE INFORMATION: Exam: US Left Breast, Complete Exam date and time: 12/18/2024 1:50 PM Age: 69 years old Clinical indication: Patient recalled for further evaluation of a left breast mass TECHNIQUE: Imaging protocol: Complete ultrasound of all four quadrants of the left breast and the retroareolar regions, including ultrasound of the axilla when performed. COMPARISON: MG MM DIG SCREENING MAMM BI W/CAD 12/11/2024 10:28 AM FINDINGS: ULTRASOUND: Breast ultrasound findings: Sonographic images of the left breast including the retroareolar region, all 4 quadrants and the axilla do not demonstrate any solid masses. Few scattered subcentimeter cysts are noted in the left breast . There are no focal findings in the left lower inner periareolar region to correlate with the questionable 0.8 cm mass on mammography No architectural distortion or acoustical shadowing. No skin thickening or axillary adenopathy. IMPRESSION: Probably benign subcentimeter mass in the anterior left lower inner quadrant only well seen on mammography. A six-month follow-up diagnostic left mammogram is recommended to ensure stability over time ASSESSMENT: BI-RADS Category 3: Probably benign.
== END 2024-12-18 23:59 | disposition home or self-care (01) ==
LOC: RAD 13:18
PROVIDERS: PCP Family Medicine; Visit Provider Family Medicine
DX: R92.8 Other abnormal and inconclusive findings on diagnostic imaging of breast (principal)
CPT/HCPCS: 76641

== ENCOUNTER 2025-02-04 11:02 | Outpatient (CLI) | payer MEDICARE, SELFPAY ==
[2025-02-04 14:08] LABS: Creatinine,Urine Random 34 mg/dL (Not Estab.)
[2025-02-04 14:14] LABS: Creatinine 24 Hour,Urine 1054 mg/24hr (630-2500); Total Volume,Urine 3100 mL (250-2400)
[2025-02-04 14:15] LABS: Collection Time,Urine 24 hours
[2025-02-05 14:12] LABS: Calcium, Urine 10.7 mg/dL (Not Estab.)
[2025-02-08 13:32] LABS: Calcium, Urine 24hr 332 mg/24 hr (0-320)
== END 2025-02-04 23:59 | disposition home or self-care (01) ==
LOC: LAB 11:05
PROVIDERS: PCP Family Medicine; Visit Provider Internal Medicine Endocrinology, Diabetes & Metabolism
DX: E21.3 Hyperparathyroidism, unspecified (principal)
CPT/HCPCS: 82340; 82570

== ENCOUNTER 2025-04-14 10:56 | Outpatient (CLI) | payer MEDICARE, SELFPAY ==
--- NOTE | 2025-04-14 10:59 | XR_ITS ---
FINAL REPORT CLINICAL HISTORY: left hip pain COMPARISON: None FINDINGS: LEFT HIP: 3 views of the left hip demonstrate no acute fracture or dislocation. The joint space appears mildly narrowed. The visualized bony structures are well aligned. No soft tissue abnormality is seen. 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 Reviewed, Interpreted and Dictated by James Echavarria MD Transcribed by Magnolia Arreola Authenticated and [facility]
--- NOTE | 2025-04-14 10:59 | XR_ITS ---
FINAL REPORT CLINICAL HISTORY: left knee pain COMPARISON: None FINDINGS: LEFT KNEE 3 views of the left knee were obtained. There is no acute fracture or dislocation. There is moderate narrowing of the medial compartment and the patellofemoral compartment. Small patellar posterior osteophytes are noted. Soft tissues are unremarkable. IMPRESSION: Moderate joint space narrowing in the medial and patellofemoral compartments, without acute bony abnormality. Reviewed, Interpreted and Dictated by James Echavarria MD Transcribed by Magnolia Arreola Authenticated and [facility]
== END 2025-04-14 23:59 | disposition home or self-care (01) ==
LOC: RAD 10:57
PROVIDERS: PCP Family Medicine; Visit Provider Family Medicine
DX: M16.12 Unilateral primary osteoarthritis, left hip (principal); M25.862 Other specified joint disorders, left knee; M25.562 Pain in left knee; R79.89 Other specified abnormal findings of blood chemistry
CPT/HCPCS: 73502; 73562

== ENCOUNTER 2025-05-07 10:11 | Outpatient (CLI) | payer MEDICARE, SELFPAY ==
--- OUTSIDE RECORDS SUMMARY | 2025-02-20 17:30 | XMS_ITS ---
Author Organization [facility] PE D ANGELINA Address [address] [place] [address] Care Team Providers Care Llama Farmer Name Role Phone Jose Kraft Primary Care Provider [phone] Migration, Provider Unavailable Unavailable REASON FOR VISIT [facility] Encounter Medications Medication SIG (Take, Route, Frequency, Duration) Notes Start Date End Date Status Meloxicam 15 MG 1 tab(s) orally once a day for 90 Active Farxiga 10 MG 1 tab(s) orally once a day for 30 day(s) 02/23/2022 Active Atorvastatin Calcium 20 MG 1 tab(s) orally once a day (at bedtime) for 90 Active DILACOR 240 MGM 1 TAB DAILY for 30 DAYS *Please review for potential replacement for e-prescription and drug interaction check* 07/10/2019 Active Flonase Allergy Relief 0.05% 2 SPRAY(S) INTRANASALLY ONCE A DAY *Please review and pick correct strength-formulati on from [employer] options. If intended option is not shown, discontinue and re-order from Quick Search* Active ULTRAM 50 MG 1 TAB(S) ORALLY EVERY 8 HOURS for 30 DAYS *Please review for potential replacement for e-prescription and drug interaction check* 09/27/2022 Active CALTRATE 600 MG 2 TAB(S) ORALLY ONCE A DAY *Please review for potential replacement for e-prescription and drug interaction check* Active Diclofenac Sodium 1 % as directed applied topically 4 times a day for 30 day(s) 06/16/2019 Active Pataday 0.2 % 1 gtt in each affected eye once a day for 10 day(s) Active Prevacid 30 MG 1 cap(s) orally once a day for 90 days Active Dilt-XR 240 MG TAKE 1 CAPSULE BY MOUTH EVERY DAY for 90 Active Methotrexate 2.5MG 8 PILLS ORALLY 1X/WEEK ON SATURDAY for 90 *Please review and pick correct strength-formulati on from [employer] options. If intended option is not shown, discontinue and re-order from Quick Search* Active Alendronate Sodium 35 MG 1 tab(s) orally once a week for 28 Active Gabapentin 100 MG 1 cap(s) orally 2 times a day for 30 days 03/09/2022 Active Folic Acid 1 MG 1 tab(s) orally once a day for 90 days 05/25/2022 Active Jardiance 25 MG 1 tab(s) orally once a day (in the morning) for 30 day(s) 02/28/2022 Active Estradiol 1 MG Take 1/2 (one-half) tablet by mouth once daily for 90 Active Lisinopril 20 MG 1 tab(s) orally once a day for 90 Active Encounters Encounter Location Date Provider Diagnosis [facility] ANGEL[place] [address] [facility] [address] [place] [address] 02/20/2025 Provider Migration Plan Of Treatment Medication Medication Name Sig Start Date Stop Date Notes ULTRAM 50 MG 1 TAB(S) ORALLY EVERY 8 HOURS for 30 DAYS 09/27/2022 *Please review for potential replacement for e-prescription and drug interaction check* Prevacid 30 MG 1 cap(s) orally once a day for 90 days Dilt-XR 240 MG TAKE 1 CAPSULE BY MOUTH EVERY DAY for 90 Alendronate Sodium 35 MG 1 tab(s) orally once a week for 28 Folic Acid 1 MG 1 tab(s) orally once a day for 90 days 05/25/2022 Progress Notes * Roger HICKEYineDOB: [birth year] (70 yo F)Acc No.[id number]:02/20/2025 Patient: Bernice DIAS Provider: Kong lucero Migration :1955 A ge:70 Y S ex:Female Date:02/20/2025 Address:[address] [place] [address] [place], [id number] Pcp:Jose Freddie Besson Subjective: * Chief Complaints: * 1 . [facility] To [facility] Conversion Encounter. * Medical History: * Medications: [...] *Please review and pick correct strength[facility]ulation [facility]. If intended option is not shown, [...] *Please review and pick correct strength-formulation from [facility]. If intended option is not shown, discontinue and re-order from Quick Search* Objective: * Vitals: Assessment: Plan: * Treatment: * * Electronic signature of Donny cotton Migration on 05/07/2025 at 10:18 AM EDT Sign off status: Pending * Provider: Kong lucero Migration Date: 02/20/2025 Generated for Jaki gary/Sharon/Katiana on: 05/07/2025 10:18 AM EDT
--- OUTSIDE RECORDS SUMMARY | 2025-05-05 15:20 | XMS_ITS | Encounter Summary ---
Author Organization [facility] Address [address] [place] [address] Care Team Providers Care Tools Programmer Name Role Phone Piotr Eason MD Primary Care Provider Alma vailable Reason for Referral * Consultation (Routine) - Authorized Specialty Diagnoses / Procedures Referred By Contac t Referred To Contact Diagnoses Hyperparathyroidism (CMS/HCC) Randy Osuna MD [address] [address] Phone: tel: fax: Referral ID Status Reason Start Date Expiration Date V isits Requested Visits Authorized [id number] Authorized 05/05/2025 11/04/2026 1 1 Reason for Visit * Reason Comments Follow-up * Consultation (Routine) - Closed Specialty Diagnoses / Procedures Referred By Pratik t Referred To Contact Diagnoses Hyperparathyroidism (CMS/HCC) Hypercalcemia Randy Osuna MD [address] [address] Phone: tel: fax: Referral ID Status Reason Start Date Expiration Date Visits Re quested Visits Authorized [id number] Closed 02/01/2025 08/03/2026 1 1 Encounter Details Date Type Department Care Team (Late st Contact Info) Description 05/05/2025 3:20 PM EDT Office Visit [facility] [address] [place] [address] Randy Osuna MD [address] [facility] [address] [place] [address] Primary hyperparathyroidism (CMS/HCC) (Primary Dx); Hypercalcemia; Osteopenia of neck of left femur Social History Tobacco Use Types Packs/Day Years Used Date Smoking Tobacco: Never Smokeless Tobacco: Never Alcohol Use Standard Drinks/Week Comments Never 0 (1 standard drink = 0.6 oz pur e alcohol) Comments No Sex and Gender Information Value Date Recorded Sex Assigned at Not on file Legal Sex Female 8:24 PM EDT Gender Identity Not on file Sexual Orientation Not on file documented as of this encounter Last Filed Vital Signs Vital Sign Reading Time Taken Comments Blood Pressure 131/85 05/05/2025 2:52 PM EDT Pulse 81 05/05/2025 2:52 PM EDT Temperature - - Respiratory Rate - - Oxygen Saturation 94% 05/05/2025 2:52 PM EDT Inhaled Oxygen Concentration - - Weight 92.9 kg (204 lb 12.9 oz) 05/05/2025 2:52 PM EDT Height 157.5 cm (5' 2 ) 05/05/2025 2:52 PM EDT Body Mass Index 37.46 05/05/2025 2:52 PM EDT documented in this encounter Miscellaneous Notes * Progress Notes - Randy Osuna MD - 05/05/2025 3:20 PM EDT Subjective Bernice Cooney is a 70 y.o., female here for follow up for hypercalcemia 2/2 primary hyperparathyroidism. She is here today with who was present for entire visit and provided additional history. Interval History Last Visit:02.01.2025 Since last visit the patient reports things have been steady C/o polyuria and so has been drinking more water HYPERCALCEMIA: She reports first hearing about high calcium in . On chart review noted Ca2+ 10.7 mg/dL in Patient seen by PCP on 01.08.2025 who was following for concern for primary hyperparathyroidism. Perchart review note that NM Parathyroid scan WNL in and ENT recommended exploratory surgery that the patient was hesitant to perform. She was referred to [facility] for further evaluation. No access to prior lab for Ca2+ and PTH levels. Seen by Dr. Martel in ENT. Stated she would not want exploratory surgery. She reports that at times tired in the AM. She denied nocturia. She reports dry mouth that can make her thirsty. States that has mild issues with remembering things. C/o constipation at baseline and takes OTC laxative She also denies nausea and vomiting. States she cannot lose weight There is no personal history of kidney stones. Unclear re: diagnosis of osteoporosis Currently on Fosamax 35mg weekly at least since per chart review METABOLIC BONE HEALTH: Calcium intake: used to be on calcium supplements; she stopped taking all calcium in the diet. Vitamin D intake: No D3 supplements; taking one a day MVI takes 2 weeks then stops for 1 week then take for 2 weeks at a time then off for 1 week No recent falls Family history of osteoporosis: Denied; reports mother did not go to provider and states was humpedover Parental history of hip fracture: Denied She has SHIRLEY in at [facility] Past Medical History[1] Surgical History[2] Current Medications[3] Allergies[4] Social History[5] Family History[6] There is no family hx of hypercalcemia, nephrolithiasis, hip fracture, osteoporosis or thyroid disease. Review of Systems: See HPI Review of Systems Constitutional: Negative for chills and fever. Respiratory: Negative for shortness of breath. Gastrointestinal: Positive for constipation. Negative for nausea and vomiting. A complete ROS was otherwise negative in detail Objective Physical Exam: BP 131/85 Pulse 81 Ht 1.575 m (5' 2 ) Wt 92.9 kg (204 lb 12.9 oz) BMI 37.46 kg/m?? GEN:Sitting up comfortably, well appearing, non-Cushingoid EYES: sclera anicteric, extraocular motion grossly intact HENT: OP clear PULM: No increased work of breathing, completing full sentences, symmetric chest rise CV: Normal rate, regular rhythm EXT: Warm well perfused NEURO: A&Ox4. No dysarthria. SKIN: normal temperature/texture, no ecchymoses; normal pigmentation, PSYCH: normal mood and affect Date Ca Alb ICa iPTH 25D Alk Phos Phos Cr eGFR Uca/Ucr TSH FT4 6.8.23 10.7 H 4.2 76 0.70 83 3.17.25 11.1 4.4 5.8 120 51.2 73 2.8 0.74 87.7 Urine Vol 3.1L Urine Ca2+ 332mg/d FeCa 0.021 1.69 1.0 6.18.25 IMAGING DXA L1-L4 T score 0.2 L FN T score -2.2; BMD 0.6 NM Parathyroid Scan 11.19.2024 FINDINGS: Small thyroid gland with homogeneous biodistribution and relatively greater activity in right lobe compared to left. Near complete washout from thyroid gland on delayed images. No focal sestamibi localization in neck or mediastinum. On CT, no soft-tissue nodule. Incidental CT: Mucosal thickening in bilateral maxillary sinuses. IMPRESSION: Parathyroid Glands: No enlarged hypercellular parathyroid gland identified in neck or mediastinum. Thyroid Gland: Small. Assessment/Plan Hypercalcemia: Primary Hyperparathyroidism NM Parathyroid scan negative in Endocrine surgery appt scheduled 06.24.2025 for consideration of parathyroidectomy in setting of hypercalciuria PTH 120 and serum Ca2+ 11.1 mg/dL in Patient with 24hr Urine Ca2+ 332mg/day and FeCa 0.021 c/w PHPT Check serum CMP, iCal, Mag, Phos, iPTH and 25 hydroxy Vitamin D now for surveillance Counseled regarding importance of maintaining sufficient intake of water to allow for excretion of colorless urine Osteoporosis On Fosamax 35mg weekly for unclear duration DXA in wit T score -2.2 in LFN Class II Obesity Weight Gain TFT WNL I have answered all of my patient's questions to the best of my ability. RTC in 4 Months I personally spent a total of 36 minutes on this encounter. This time includes face to face with patient, counseling and discussion and/or coordination of care. 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 [2] Past Surgical History: Procedure Laterality Date SECTION, LOW TRANSVERSE N/A Section from [facility] GALLBLADDER SURGERY N/A Gallbladder Surgery from [facility] HYSTERECTOMY N/A Hysterectomy from [facility] [3] Current Outpatient Medications: alendronate (Fosamax) 35 MG tablet, TAKE 1 TABLET 1 TIME EACH WEEK DIRECTED FOR BONE LOSS, Disp:, Rfl: atorvastatin (Lipitor) 20 MG tablet, TAKE 1 TABLET 1 TIME EACH DAY FOR CHOLESTEROL, Disp: , Rfl: Dilt-XR 240 MG 24 hr capsule, Take by mouth 1 (one) time each day., Disp: , Rfl: folic acid (Folvite) 1 MG tablet, TAKE 1 TABLET 1 TIME EACH DAY, Disp: , Rfl: lansoprazole (Prevacid) [address] capsule, TAKE 1 CAPSULE 1 TIME EACH DAY, Disp: , Rfl: lisinopril 20 MG tablet, TAKE 1 TABLET 1 TIME EACH DAY FOR BLOOD PRESSURE, Disp: , Rfl: meloxicam (Mobic) 15 MG tablet, TAKE 1 TABLET 1 TIME EACH DAY FOR PAIN, Disp: , Rfl: metFORMIN (Glucophage) 500 MG tablet, Take 1 tablet by mouth 3 times a day., Disp: , Rfl: methotrexate 2.5 MG tablet, 8 tablets (20 mg total)., Disp: , Rfl: Premarin 0.625 MG tablet, TAKE 1 TABLET 1 TIME EACH DAY, Disp: , Rfl: traMADol (Ultram) 50 MG tablet, , Disp: , Rfl: [4] No Known Allergies [5] Social History Tobacco Use Smoking status: Never Smokeless tobacco: Never Substance Use Topics Alcohol use: Never Drug use: Never [6] Family History Problem Relation Name Age of Onset Kidney disease Mother Pneumonia Mother Pneumonia Father Conversions - Other Father Patient's father is Conversions - Other Mother Patient's mother is documented in this encounter Plan of Treatment Upcoming Encounters Date Type Department Care Team ([facility] st Contact Info) Description 06/24/2025 9:00 AM EDT Consult Medical Office Building Surgical Specialties [facility] [address] [facility], [address] [place] [address] Nato Mejias MD [facility] [address] [address] 09/08/2025 11:20 AM EDT Office Visit [facility] [address], [address] [place] [address] Randy Osuna MD [address] [facility] [address] [place] [address] Scheduled Referrals Name Type Priority Associated Diagnoses Orde r Schedule Follow Up [facility] Outpatient Referral Routine Primary hyperparathyroidism (CMS/HCC) Expected: 09/04/2025, Expires: 11/06/2026 documented as of this encounter Results * Vitamin D 25 Hydroxy (05/05/2025 3:45 PM EDT) Vitamin D 25 Hydroxy 51.1 20.0 - 80.0 ng/mL 05/05/2025 6:35 PM EDT [facility] Blood Venous blood specimen / Unknown Venipuncture / Unknown 05/05/2025 3:45 PM EDT 05/05/2025 3:45 PM EDT Narrative [facility] - 05/05/2025 6:35 PM EDT Testing performed on [employer] Lab Technician, standardized against NIST SRM 2972. When testing samples from patients whose predominant form of vitamin D is vitamin D2, such as patients receiving vitamin D2 supplementation, results that are subtherapeutic should be confirmed with another method, such as LC-MS/MS, before being used for patient management. Vitamin D, 25-Hydroxy reference range, age 18 years and up: Deficiency: <12 ng/mL Insufficiency: 12 to 19 ng/mL Sufficiency: 20 to 80 ng/mL Possible toxicity: >100 ng/mL us Randy Osuna MD LAB BLOOD ORDERABLES Final R esult [facility] [address] [place] [address] * (ABNORMAL) Comprehensive Metabolic Panel, Plasma (05/05/2025 3:45 PM EDT) Glucose, Plasma 189(H) 74 - 99 mg/dL 05/05/2025 6:21 PM EDT [facility] BUN, Plasma 10 8 - 23 mg/dL 05/05/2025 6:21 PM EDT [facility] Creatinine, Plasma 0.73 0.60 - 1.10 mg/dL 05/05/2025 6:21 PM EDT [facility] BUN/Creatinine Ratio 14 05/05/2025 6:21 PM EDT [facility] Sodium, Plasma 138 136 - 145 mmol/L 05/05/2025 6:21 PM EDT [facility] Potassium, Plasma 4.5 3.6 - 4.9 mmol/L 05/05/2025 6:21 PM EDT [facility] Chloride, Plasma 101 97 - 107 mmol/L 05/05/2025 6:21 PM EDT [facility] CO2, Plasma 23 22 - 29 mmol/L 05/05/2025 6:21 PM EDT [facility] Anion Gap 14 6 - 16 mmol/L 05/05/2025 6:21 PM EDT [facility] Total Calcium, Plasma 10.6(H) 8.9 - 10.2 mg/dL 05/05/2025 6:21 PM EDT [facility] Total Protein 7.0 6.3 - 7.9 g/dL 05/05/2025 6:21 PM EDT [facility] Albumin, Plasma 4.1 3.5 - 5.2 g/dL 05/05/2025 6:21 PM EDT [facility] AST, Plasma 24 10 - 35 U/L 05/05/2025 6:21 PM EDT [facility] ALT, Plasma 22 10 - 35 U/L 05/05/2025 6:21 PM EDT [facility] Alkaline Phosphatase, Plasma 71 46 - 142 U/L 05/05/2025 6:21 PM EDT [facility] Total Bilirubin, Plasma 0.2 0.2 - 1.1 mg/dL 05/05/2025 6:21 PM EDT [facility] eGFRcr 88.6 mL/min/1.7 3m*2 05/05/2025 6:[facility] Comment:Reported eGFRcr in m L/min/1.73m2 is based the CKD-EPI 2020 equation that does not use a race coefficient. Blood Venous blood specimen / Unknown Venipuncture / Unknown 05/05/2025 3:45 PM EDT 05/05/2025 3:45 PM EDT Randy Osuna MD LAB BLOOD ORDERABLES Final R esult Performing Organization Address [facility] Co de Phone Number [facility] [address] [place] [address] * (ABNORMAL) Ionized calcium, serum (05/05/2025 3:45 PM EDT) Ionized Calcium, Serum 5.7(H) 4.6 - 5.3 mg/dL LAB HEMATOLOGY METHOD 05/05/2025 5:16 PM EDT [facility] Blood Venous blood specimen / Unknown Venipuncture / Unknown 05/05/2025 3:45 PM EDT 05/05/2025 3:45 PM EDT Randy Osuna MD LAB BLOOD ORDERABLES Final R esult Performing Organization Address [facility] de Phone Number [facility] [address] [place] [phone] * Phosphorus, Plasma (05/05/2025 3:45 PM EDT) Phosphorus, Plasma 3.5 2.5 - 4.5 mg/dL 05/05/2025 6:21 PM EDT [facility] Blood Venous blood specimen / Unknown Venipuncture / Unknown 05/05/2025 3:45 PM EDT 05/05/2025 3:45 PM EDT Randy Osuna MD LAB BLOOD ORDERABLES Final R esult Performing Organization Address [facility] de Phone Number [facility] [address] [place] [address] * (ABNORMAL) Magnesium, Plasma (05/05/2025 3:45 PM EDT) Magnesium, Plasma 1.7(L) 1.9 - 2.4 mg/dL 05/05/2025 6:21 PM EDT [facility] Blood Venous blood specimen / Unknown Venipuncture / Unknown 05/05/2025 3:45 PM EDT 05/05/2025 3:45 PM EDT us Radny Osuna MD LAB BLOOD ORDERABLES Final R esult Performing Organization Address City/[facility] Co de Phone Number [facility] [address] [place] [address] * (ABNORMAL) PTH Intact Total (05/05/2025 3:45 PM EDT) PTH Intact Total 119(H) 9 - 77 pg/mL 05/05/2025 6:18 PM EDT [facility] Blood Venous blood specimen / Unknown Venipuncture / Unknown 05/05/2025 3:45 PM EDT 05/05/2025 3:45 PM EDT Narrative [facility] - 05/05/2025 6:18 PM EDT Assay performed by immunoassay at the [facility]. Performed on [employer] Lab Technician chemiluminescent immunoassay, tractable to the World Health Organization's first international standard for PTH from the NIBS, Code 79/500. Results obtained from different test methods or kits cannot be used interchangeably. Randy Osuna MD LAB BLOOD ORDERABLES Final R esult Performing Organization Address [facility] Co de Phone Number [address] [phone] documented in this encounter Visit Diagnoses Diagnosis Primary hyperparathyroidism (CMS/HCC)- Primary Primary hyperparathyroidism Hypercalcemia Osteopenia of neck of left femur documented in this encounter Additional Health Concerns Assessment Noted Time A fall risk assessment has been complete d for the patient 05/05/2025 2:58 PM EDT A Body Mass Index follow-up plan has been documented for the patient 05/05/2025 3:28 PM EDT documented as of this encounter Care Teams Tools Programmer Relationship Specialty Start Date End Date Piotr Eason MD PCP - General Family Medicine 05/05/25 documented as of this encounter
--- OUTSIDE RECORDS SUMMARY | 2025-05-07 10:18 | XMS_ITS | Patient Health Record ---
Author Organization [facility] [place] Address [address] [facility] [address] [place] [address] Care Team Providers Care Waste Management Engineer Name Role Phone Jose Kraft Primary Care Provider Migration, Provider Unavailable Unavailable Allergies No Known Allergies Medications Medication SIG (Take, Route, Frequency, Duration) Notes Start Date End Date Status Folic Acid 1 MG 1 tab(s) orally once a day for 90 days 05/25/2022 Active Atorvastatin Calcium 20 MG 1 tab(s) orally once a day (at bedtime) for 90 Active DILACOR 240 MGM 1 TAB DAILY for 30 DAYS *Please review for potential replacement for e-prescription and drug interaction check* 07/10/2019 Active Flonase Allergy Relief 0.05% 2 SPRAY(S) INTRANASALLY ONCE A DAY *Please review and pick correct strength-formulati on from Odimax options. If intended option is not shown, discontinue and re-order from Quick Search* Active Prevacid 30 MG 1 cap(s) orally once a day for 90 days Active Jardiance 25 MG 1 tab(s) orally once a day (in the morning) for 30 day(s) 02/28/2022 Active Estradiol 1 MG Take 1/2 (one-half) tablet by mouth once daily for 90 Active Dilt-XR 240 MG TAKE 1 CAPSULE BY MOUTH EVERY DAY for 90 Active Meloxicam 15 MG 1 tab(s) orally once a day for 90 Active Farxiga 10 MG 1 tab(s) orally once a day for 30 day(s) 02/23/2022 Active ULTRAM 50 MG 1 TAB(S) ORALLY EVERY 8 HOURS for 30 DAYS *Please review for potential replacement for e-prescription and drug interaction check* 09/27/2022 Active CALTRATE 600 MG 2 TAB(S) ORALLY ONCE A DAY *Please review for potential replacement for e-prescription and drug interaction check* Active Methotrexate 2.5MG 8 PILLS ORALLY 1X/WEEK ON SATURDAY for 90 *Please review and pick correct strength-formulati on from Odimax options. If intended option is not shown, discontinue and re-order from Quick Search* Active Diclofenac Sodium 1 % as directed applied topically 4 times a day for 30 day(s) 06/16/2019 Active Lisinopril 20 MG 1 tab(s) orally once a day for 90 Active Alendronate Sodium 35 MG 1 tab(s) orally once a week for 28 Active Pataday 0.2 % 1 gtt in each affected eye once a day for 10 day(s) Active Gabapentin 100 MG 1 cap(s) orally 2 times a day for 30 days 03/09/2022 Active Immunizations Vaccine Route Administration Date Status Comme nts Zostavax (Shingles) SC Subcutaneous 12/13/2016 Administere d Prevnar PCV-13 (Pneumococcal conjugate 13) IM Intramuscular 12/13/2016 Administered Pneumovax 23 IM Intramuscular 09/27/2020 Administered Influenza Intradermal Unknown 08/01/2012 Administered Influenza (Fluzone)--Medicare only IM Intramuscular 08/24/2014 Administered Influenza (Fluzone)--Medicare only IM Intramuscular 08/25/2015 Administered Influenza (Fluzone)--Medicare only IM Intramuscular 09/20/2016 Administered Influenza (Fluzone)--Medicare only IM Intramuscular 08/08/2017 Administered Influenza (Fluzone)--Medicare only IM Intramuscular 08/01/2018 Administered H1N1 Vaccine IM Intramuscular 10/10/2009 Administered Fluzone High Dose IM Intramuscular 09/27/2020 Administered Fluzone High Dose IM Intramuscular 08/08/2021 Administered FLUZONE 6MO - OLDER IM Intramuscular 08/25/2019 Administer ed Fluvirin--Influenza vaccine 3+ year IM Intramuscular 09/29/2007 Administered Fluvirin--Influenza vaccine 3+ year Unknown 09/22/2008 Administered Fluvirin--Influenza vaccine 3+ year Unknown 09/09/2009 Administered Fluvirin--Influenza vaccine 3+ year Unknown 08/26/2010 Administered Fluvirin--Influenza vaccine 3+ year Unknown 08/24/2013 Administered Daptacel (DTaP ) Unknown 12/13/2016 Administered Covid Pfizer Unknown 07/06/2021 Administered Problems Problem Type SNOMED Code ICD Code Onset Dates Problem Status W/U Status Risk Notes Problem Type II diabetes mellitus without complication (410167403) Type 2 diabetes mellitus without complications (E11.9) Active confirmed Problem 936387560 Rheumatoid arthritis without rheumatoid factor, right hand (M06.041) Active confirmed Problem 680490031 Rheumatoid arthritis without rheumatoid factor, left hand (M06.042) Active confirmed Problem 547773300139001 Unilateral primary osteoarthritis, left knee (M17.12) Active confirmed Problem 410116594 Hyperlipemia, idiopathic familial (E78.5) Active confirmed Problem 32403526 Hypertension, essential (I10) Active confirmed Problem 830430434 Obesity (BMI 30-39.9) (E66.9) Active confirmed Problem 38641246 Constipation, unspecified constipation type (K59.00) Active confirmed Problem 91178938 Right sided sciatica (M54.31) Active confirmed Problem 991101857 Rotator cuff tear arthropathy of right shoulder (M12.811) Active confirmed Problem 088299496 Osteopenia determined by x-ray (M85.80) Active confirmed Problem 321051239 Asymptomatic menopause (Z78.0) Active confirmed Encounters Encounter Location Date Provider Diagnosis [facility] [address] [facility] [address] [facility] [address] [place] [id number] 02/20/2025 Provider Migration Plan Of Treatment Pending Test Test Name Order Date Urinalysis 08/16/2020 Urinalysis 04/17/2016 N-CRYSTAL (Antinuclear Antibody) 09/27/2007 Rapid Strep 07/04/2007 Microalbumin (In-House) 02/21/2015 Microalbumin (In-House) 04/17/2016 Microalbumin (In-House) 04/25/2018 Microalbumin (In-House) 12/06/2015 N-CMP 10/31/2009 N-Lipid Panel 10/31/2009 N-HbA1C 12/23/2009 Physical Therapy 08/08/2017 Mammogram : Bilateral 08/16/2020 Mammogram : Bilateral 02/17/2008 Dietary Consult 03/26/2011 H-CBC with AUTO DIFF 01/23/2012 H-CMP 01/23/2012 H-CMP 03/19/2016 H-LIPID PANEL 01/23/2012 H-HGBA1C 01/23/2012 H-HGBA1C 03/19/2016 H-TSH 01/23/2012 H-RHEUMATOID ARTHRITIS PROFILE 2 H-SED RATE 01/23/2012 C-CBC 08/26/2010 C-CBC 08/25/2019 C-CBC 02/21/2015 C-Sed Rate (ESR) 02/21/2015 C-CMP 08/26/2010 C-CMP 08/25/2019 C-CMP 01/10/2021 C-CMP 02/21/2015 C-LIPID PANEL 08/26/2010 C-LIPID PANEL 02/21/2015 C-HGBA1C 08/26/2010 C-HGBA1C 02/21/2015 C-CCP IGG Antibodies 05/07/2011 VENIPUNCT, ROUTINE* 12/06/2015 M-Erythrocyte Sedimentation Rate 021 M-Vitamin D 25 Hydroxy 11/21/2021 M-Vitamin D 25 Hydroxy 08/08/2021 Insurance Providers Payer Name Payer Address Payer Phone Subscriber Number Group Number Insured Name Patient Relationship to Insured Coverage Start Date Coverage End Date MEDICARE PART B [address] [phone] [id number] Bernice Cooney Self - patient is the insured [facility] MEDICARE SUPPLEMENT INSURANCE [address] [place] [phone] [id number] Bernice Cooney Self - patient is the insured Medical (General) History Medical History History ICD Code rheumatoid arthritis hypercholestrolemia hormone replacement therapy Esophageal reflux hypertension type II diabetes Colonoscopy 2010 at [facility]... normal. Repeated at [facility] 10/07 with tubular adenomas Normal mammogram 04/03 and 08/06 and 10/07 20 and 10/2021 osteopenia on DEXA scan Apri l 2016 - slightly worse September 06, alendronate started Surgical History Surgery Date(Month/Year) Cholecystectomy 2 c-sections total hysterectomy appendectomy hernia repair colonoscopy 2019 Hospitalization History Reason Date(Month/Year) surgeries
--- OUTSIDE RECORDS SUMMARY | 2025-05-07 10:18 | XMS_ITS | Encounter Summary ---
Author Organization Healthcare Address [address] [place] [address] Care Team Providers Care Gas Pipe Layer Name Role Phone Jose Kraft MD Primary Care Provider + [phone] Piotr Eason MD Primary Care Provider Alma vailable Encounter Details Date Type Department Care Team (Late st Contact Info) Description 09/28/2024 Orders Only External Location [address] [place] [address] Provider, External Social History Tobacco Use Types Packs/Day Years [...] on file documented as of this encounter Plan of Treatment Upcoming Encounters Date Type Department Care Team (Late Contact Info) Description 06/24/2025 9:00 AM EDT Consult Medical Office Building Surgical Specialties [address] [facility], [address] [place] [address] Nato Mejias MD [address] [facility] [address] [place] [address] 09/08/2025 11:20 AM EDT Office Visit [facility] [address], [address] [place] [address] Randy Osuna MD [facility] [address] [place] [address] documented as of this encounter Procedures Procedure Name Priority Date/Time Associated Diagnosis Comments NM OUTSIDE IMAGES 09/28/2024 9:22 AM EST documented in this encounter Results * NM OUTSIDE IMAGES (09/28/2024 9:22 AM EST) Anatomical Region Laterality Modality Nuclear Medicine 09/28/2024 9:22 AM EST External Provider IMG NM PROCEDURES Final Result documented in this encounter Visit Diagnoses Not on filedocumented in this encounter Additional Health Concerns Assessment Noted Time A fall risk assessment has been complete d for the patient 09/18/2023 9:53 AM EDT A Body Mass Index follow-up plan has been documented for the patient 09/18/2023 10:21 AM EDT documented as of this encounter Care Teams Gas Pipe Layer Relationship Specialty Start Date End Date Jose Kraft MD [address] [place] [address] PCP - General 03/31/21 05/04/25 Piotr Eason MD PCP - General Family Medicine 05/05/25 documented as of this encounter
--- OUTSIDE RECORDS SUMMARY | 2025-05-07 10:18 | XMS_ITS | Encounter Summary ---
Author Organization Healthcare Address [address] [place] [address] Care Team Providers Care Tower Technician Name Role Phone Piotr Eason MD Primary Care Provider Alma vailable Encounter Details Date Type Department Care Team (Latest Contact Info) Description 05/05/2025 Travel Social History Tobacco Use Types Packs/Day Years [...] Encounters Date Type Department Care Team (Late st Contact Info) Description 06/24/2025 9:00 AM EDT Consult Medical Office Building Surgical Specialties [address] [facility], [address] [place] [address] Nato Mejias MD [address] [facility] [address] [place] [address] 09/08/2025 11:20 AM EDT Office Visit [facility] [address], [address] [place] [address] Randy Osuna MD [address] [facility] [address] [place] [address] documented as of this encounter Visit Diagnoses Not on filedocumented in this encounter Additional Health Concerns Assessment Noted Time A fall risk assessment has been complete d for the patient 05/05/2025 2:58 PM EDT A Body Mass Index follow-up plan has been documented for the patient 05/05/2025 3:28 PM EDT documented as of this encounter Care Teams Tower Technician Relationship Specialty Start Date End Date Piotr Eason MD PCP - General Family Medicine 05/05/25 documented as of this encounter
--- OUTSIDE RECORDS SUMMARY | 2025-05-07 10:18 | XMS_ITS | Encounter Summary ---
Author Organization Healthcare Address [address] [place] [address] Care Team Providers Care Laundry Route Driver Name Role Phone Jose Kraft MD Primary Care Provider + [phone] Reason for Referral * Consultation (Routine) - Authorized Specialty Diagnoses / Procedures Referred By Contac t Referred To Contact General, Endocrine & Minimally Invasive Surgery / General Surgery Diagnoses Primary hyperparathyroidism (CMS/HCC) Randy Osuna MD [address] [facility] [address] [place] [address] Phone: tel: fax: Referral ID Status Reason Start Date Expiration Date Visits Requested Visits Authorized [id number] Authorized Specialty Services Required 02/08/2025 08/10/2026 1 1 Encounter Details Date Type Department Care Team ([facility] Contact Info) Description 02/08/2025 Results Follow-Up [facility] [address] [facility] [address] [place] [address] Judy Long RN [facility] Social History Tobacco Use Types Packs/Day Years [...] Medical Office Building Surgical Specialties [address] , [address] [place] [address] Nato Mejias MD [address] [place] [address] 09/08/2025 11:20 AM EDT Office [facility] [address], [address] [place] [address] Randy Osuna MD [address] [facility] [address] [place] [address] Scheduled Referrals Name Type Priority Associated Diagnoses Orde r Schedule Ambulatory referral to Endocrine Surgery ([facility]) Outpatient Referral Routine Primary hyperparathyroidism (CMS/HCC) 1 Occurrences starting 02/08/2025 until 08/11/2026 documented as of this encounter Visit Diagnoses Diagnosis Primary hyperparathyroidism (CMS/HCC)- Primary Primary hyperparathyroidism documented in this encounter Additional Health Concerns Assessment Noted Time A fall risk assessment has been complete d for the patient 02/01/2025 2:55 PM EDT A Body Mass Index follow-up plan has been documented for the patient 02/01/2025 4:04 PM EDT documented as of this encounter Care Teams Laundry Route Driver Relationship Specialty Start Date End Date Jose Kraft MD [address] [place] [address] PCP - General 03/31/21 05/04/25 documented as of this encounter
--- OUTSIDE RECORDS SUMMARY | 2025-05-07 10:18 | XMS_ITS | Clinical Summary ---
Author Organization [facility] Address [address] [place] [address] Care Team Providers Care Hydraulic Auto Jack Mechanic Name Role Phone Piotr Eason MD Primary Care Provider Alma vailable Allergies No known active allergies Medications alendronate (Fosamax) 35 MG tablet TAKE 1 TABLET 1 TIME EACH WEEK DIRECTED FOR BONE LOSS 06/24/20 23 Active atorvastatin (Lipitor) 20 MG tablet TAKE 1 TABLET 1 TIME EACH DAY FOR CHOLESTEROL 05/29/20 23 Active Dilt-XR 240 MG 24 hr capsule Take by mouth 1 (one) time each day. 03/22/20 23 Active Premarin 0.625 MG tablet TAKE 1 TABLET 1 TIME EACH DAY 08/08/20 23 Active folic acid (Folvite) 1 MG tablet TAKE 1 TABLET 1 TIME EACH DAY 05/29/20 23 Active lansoprazole (Prevacid) [address] capsule TAKE 1 CAPSULE 1 TIME EACH DAY 06/04/20 23 Active lisinopril 20 MG tablet TAKE 1 TABLET 1 TIME EACH DAY FOR BLOOD PRESSURE 06/04/20 23 Active meloxicam (Mobic) 15 MG tablet TAKE 1 TABLET 1 TIME EACH DAY FOR PAIN 08/08/20 23 Active methotrexate 2.5 MG tablet 8 tablets (20 mg total). 07/11/20 17 Active traMADol (Ultram) 50 MG tablet 08/13/20 23 Active metFORMIN (Glucophage) 500 MG tablet Take 1 tablet by mouth 3 times a day. Active gabapentin (Neurontin) 100 MG capsule TAKE 1 CAPSULE 2 TIMES EACH DAY FOR PAIN 08/08/20 23 025 Discontinued metFORMIN XR (Glucophage-XR ) 500 MG 24 hr tablet TAKE 2 TABLETS IN THE MORNING, AND TAKE 1 TABLET AT BEDTIME 11/05/20 24 025 Discontinued Encounters Date Type Department Care Team Description 05/05/2025 3:20 PM EDT Office Visit [facility] [address], [facility] [address] [place] [address] Randy Osuna MD Primary hyperparathyroidism (CMS/HCC) (Primary Dx); Hypercalcemia; Osteopenia of neck of left femur 05/05/2025 Travel 04/27/2025 Telephone [facility] [address], [address] [place] [address] Mcdowell Angélica B 02/08/2025 Results Follow-Up [facility] [address] [place] [address] Judy Long RN 02/08/2025 Orders Only [facility] Endocrinology [address] [place] [address] Randy Osuna MD 02/05/[address] [facility] Endocrinology [address] [place] [address] Randy Osuna MD from Last 3 Months Immunizations Immunization Administration Dates Next Due DTaP, 5 pertussis antigens 12/13/2016 Influenza, High-dose, Split Virus, Trivalent, Injectable, preservative free 08/08/2021,09/27/2020 Influenza, Split (incl. timoteo fied surface antigen) 08/24/2014,08/24/2013,08/01/2012,08/26,09/09/2009,09/22/2008,09/29/2007 Influenza, high-dose, quadrivalent 09/18/2023 Influenza, injectable, quadrivalent 08/01/2018,0 08/08/2017 Influenza, injectable, quadr ivalent, preservative free 08/22/2022,08/25/2019 Influenza, seasonal, injecta ble, preservative free 09/08/2024 Novel [id number], all formulations 10/10/2009 Pneumococcal Conjugate PCV 13 12/13/2016 Pneumococcal Polysaccharide PPV23 09/27/2020 Tdap 10/25/2016 Zoster, live 12/13/2016,10/25/2016 Family History Medical History Relation Name Comments Conversions - Other Father Patient' s father is Pneumonia Father Conversions - Other Mother Patient' s mother is Kidney disease Mother Pneumonia Mother Relation Name Status Comments Father Mother Social History Tobacco Use Types Packs/Day Years Used Date Smoking Tobacco: Never Smokeless Tobacco: Never Tobacco Cessation:Counseling Given: Not Answered Alcohol Use Standard Drinks/Week Comments Never 0 (1 standard drink = 0.6 oz pur e alcohol) Comments No Sex and Gender Information Value Date Recorded Sex Assigned at Not on file Legal Sex Female 8:24 PM EDT Gender Identity Not on file Sexual Orientation Not on file Last Filed Vital Signs Vital Sign Reading Time Taken Comments Blood Pressure 131/85 05/05/2025 2:52 PM EDT Pulse 81 05/05/2025 2:52 PM EDT Temperature 36.7 C (98 F) 02/01/2025 2:55 PM EDT Respiratory Rate 16 09/18/2023 9:47 AM EDT Oxygen Saturation 94% 05/05/2025 2:52 PM EDT Inhaled Oxygen Concentration - - Weight 92.9 kg (204 lb 12.9 oz) 05/05/2025 2:52 PM EDT Height 157.5 cm (5' 2 ) 05/05/2025 2:52 PM EDT Body Mass Index 37.46 05/05/2025 2:52 PM EDT Plan of Treatment Upcoming Encounters Date Type Department Care Team (Late st Contact Info) Description 06/24/2025 9:00 AM EDT Consult Medical Office Building Surgical Specialties [address] [facility], [address] [place] [address] Nato Mejias MD [address] [facility] [address] [place] [address] 09/08/2025 11:20 AM EDT Office Visit [facility] [address], [address] [place] [address] Randy Osuna MD [address] [facility] [address] [place] [address] (work) Health Maintenance Due Date Last Done Comments [facility]-Bone Density Scan 1955 [facility]-Depression Screening 1955 [facility]-Medicare Annual Wellness (AWV) 1955 [facility]-/Child/Adol SDOH Screenings 1955 [facility]- SDOH Screenings 1973 [facility]-Adult SDOH Screenings 1973 CT Colonography 02/14/2000 Colonoscopy 02/14/2000 FIT-DNA 02/14/2000 FIT 02/14/2000 FOBT 02/14/2000 Sigmoidoscopy 02/14/2000 [facility]-Colorectal Cancer Screening 02/14/2000 [facility]-Breast Cancer Screening 2005 [facility]-RSV Vaccine: 60+ Years or (1 - Risk 60-74 years 1-dose series) 2015 [facility]-Zoster Vaccines (1 of 2) 02/07/2017 12/13/2016, 10/25/2016 [id number] Vaccine (4 - 2023- season) 2024 01/12/2022, 07/06/2021, 06/15/2021 [facility]-DTaP,Tdap,and Td Vaccines (3 - Td or Tdap) 12/13/2026 12/13/2016, 10/25/2016 [facility]-Pneumococcal Vaccine: 50+ Years Completed 09/27/2020, 12/13/2016 [facility]-Hepatitis C Screening Completed 08/16/2023 [facility]-Influenza Vaccine Completed 09/08/2024 , 09/18/2023, 08/22/2022, Additional history exists [facility]-Obesity Intervention Completed 025, 02/01/2025, 09/18/2023, Additional history exists HPV Vaccines Aged Out No longer eligi ble based on patient's age to complete this topic [facility]-HIB Vaccines Aged Out No longer e ligible based on patient's age to complete this topic [facility]-Hepatitis A Vaccines Aged Out No longer eligible based on patient's age to complete this topic [facility]-IPV Vaccines Aged Out No longer e ligible based on patient's age to complete this topic [facility]-Rotavirus Vaccines Aged Out No lo nger eligible based on patient's age to complete this topic Procedures Procedure Name Priority Date/Time Associated Diagnosis Comments PTH INTACT TOTAL Routine 05/05/2025 3:45 PM EDT Hyperparathyroidis m (CMS/HCC) MAGNESIUM, PLASMA Routine 05/05/2025 3:4 5 PM EDT Hyperparathyroidis m (CMS/HCC) PHOSPHORUS, PLASMA Routine 05/05/2025 3: 45 PM EDT Hyperparathyroidis m (CMS/HCC) IONIZED CALCIUM, SERUM Routine 3:45 PM EDT Hyperparathyroidis m (CMS/HCC) COMPREHENSIVE METABOLIC PANEL, PLASMA Routine 05/05/2025 3:45 PM EDT Hyperparathyroidis m (CMS/HCC) VITAMIN D 25 HYDROXY Routine 05/05/2025 3:45 PM EDT Hyperparathyroidis m (CMS/HCC) CALCIUM, 24 HOUR URINE Routine 3:05 PM EDT CALCIUM, 24 HOUR URINE Routine 8:12 AM EDT CREATININE, 24 HOUR URINE Routine 02/04/2025 7:47 AM EDT ACUTE HEPATITIS PANEL Routine 08/16/2023 10:24 AM EDT High risk medication use from Last 3 Months or Most Recently Relevant to Health Maintenance Results * (ABNORMAL) Ionized calcium, serum (05/05/2025 3:45 PM EDT) Ionized Calcium, Serum 5.7(H) 4.6 - 5.3 mg/dL LAB HEMATOLOGY METHOD 05/05/2025 5:16 PM EDT [facility] Blood Venous blood specimen / Unknown Venipuncture / Unknown 05/05/2025 3:45 PM EDT 05/05/2025 3:45 PM EDT Randy Ousna MD LAB BLOOD ORDERABLES Final R esult [facility] [address] [place] [address] * Vitamin D 25 Hydroxy (05/05/2025 3:45 PM EDT) Vitamin D 25 Hydroxy 51.1 20.0 - 80.0 ng/mL 05/05/2025 6:35 PM EDT [facility] Blood Venous blood specimen / Unknown Venipuncture / Unknown 05/05/2025 3:45 PM EDT 05/05/2025 3:45 PM EDT Narrative [facility] - 05/05/2025 6:35 PM EDT Testing performed on Alex Assistant Merchandiser, standardized against NIST SRM 2972. When testing [...] ORDERABLES Final R esult Performing Organization Address City/[facility]/ZIP Co de Phone Number [facility] [address] [place] [address] * Phosphorus, Plasma (05/05/2025 3:45 PM EDT) Phosphorus, Plasma 3.5 2.5 - 4.5 mg/dL 05/05/2025 6:21 PM EDT [facility] Blood Venous blood specimen / Unknown Venipuncture / Unknown 05/05/2025 3:45 PM EDT 05/05/2025 3:45 PM EDT Randy Osuna MD LAB BLOOD ORDERABLES Final R esult Performing Organization Address City/[facility]/ZIP Co de Phone Number [facility] [address] [place] [address] * (ABNORMAL) PTH Intact Total (05/05/2025 3:45 PM EDT) PTH Intact Total 119(H) 9 - 77 pg/mL 05/05/2025 6:18 PM EDT [facility] Blood Venous blood specimen / Unknown Venipuncture / Unknown 05/05/2025 3:45 PM EDT 05/05/2025 3:45 PM EDT Narrative [facility] - 05/05/2025 6:18 PM EDT Assay performed by immunoassay at the [facility]. Performed on Alex Assistant Merchandiser chemiluminescent immunoassay, tractable to the World Health Organization's first international standard for PTH from the [facility], Code 79/500. Results obtained from different test methods or kits cannot be used interchangeably. Randy Osuna MD LAB BLOOD ORDERABLES Final R esult Performing Organization Address City/[facility]/ZIP Co de Phone Number [facility] [address] [place] [address] * (ABNORMAL) Magnesium, Plasma (05/05/2025 3:45 PM EDT) Pathologist [facility] Magnesium, Plasma 1.7(L) 1.9 - 2.4 mg/dL 05/05/2025 6:21 PM EDT [facility] Blood Venous blood specimen / Unknown Venipuncture / Unknown 05/05/2025 3:45 PM EDT 05/05/2025 3:45 PM EDT Randy Osuna MD LAB BLOOD ORDERABLES Final R esult [facility] [address] [place] [address] * (ABNORMAL) Comprehensive Metabolic Panel, Plasma (05/05/2025 3:45 PM EDT) Pathologist [facility] Glucose, Plasma 189(H) 74 - 99 mg/dL 05/05/2025 6:21 PM EDT [facility] BUN, Plasma 10 8 - 23 mg/dL 05/05/2025 6:21 PM EDT [facility] Creatinine, Plasma 0.73 0.60 - 1.10 mg/dL 05/05/2025 6:21 PM EDT [facility] BUN/Creatinine Ratio 14 05/05/2025 6:21 PM EDT [facility] Sodium, Plasma 138 136 - 145 mmol/L 05/05/2025 6:21 PM EDT [facility] Potassium, Plasma 4.5 3.6 - 4.9 mmol/L 05/05/2025 6:21 PM EDT [facility] Chloride, Plasma 101 97 - 107 mmol/L 05/05/2025 6:21 PM EDT [facility] CO2, Plasma 23 22 - 29 mmol/L 05/05/2025 6:21 PM EDT [facility] Anion Gap 14 6 - 16 mmol/L 05/05/2025 6:21 PM EDT [facility] Total Calcium, Plasma 10.6(H) 8.9 - 10.2 mg/dL 05/05/2025 6:21 PM EDT [facility] Total Protein 7.0 6.3 - 7.9 g/dL 05/05/2025 6:21 PM EDT [facility] Albumin, Plasma 4.1 3.5 - 5.2 g/dL 05/05/2025 6:21 PM EDT [facility] AST, Plasma 24 10 - 35 U/L 05/05/2025 6:21 PM EDT [facility] ALT, Plasma 22 10 - 35 U/L 05/05/2025 6:21 PM EDT [facility] Alkaline Phosphatase, Plasma 71 46 - 142 U/L 05/05/2025 6:21 PM EDT [facility] Total Bilirubin, Plasma 0.2 0.2 - 1.1 mg/dL 05/05/2025 6:21 PM EDT [facility] eGFRcr 88.6 mL/min/1.7 3m*2 05/05/2025 6:21 PM EDT [facility] Comment:Reported eGFRcr in m L/min/1.73m2 is based the CKD-EPI 2020 equation that does not use a race coefficient. Blood Venous blood specimen / Unknown Venipuncture / Unknown 05/05/2025 3:45 PM EDT 05/05/2025 3:45 PM EDT Randy Osuna MD LAB BLOOD ORDERABLES Final R esult [facility] [address] [place] [address] * Calcium, 24 Hour Urine (02/04/2025 3:05 PM EDT) Only the most recent of2 resultswithin the time period is included. Urine Urine specimen obtained by clean catch procedure / Unknown Randy Osuna MD LAB URINE ORDERABLES Final R esult * Creatinine, 24 Hour Urine (02/04/2025 7:47 AM EDT) Urine Urine specimen obtained by clean catch procedure / Unknown Randy Osuna MD LAB URINE ORDERABLES Final R esult * Acute Hepatitis Panel (08/16/2023 10:24 AM EDT) Hepatitis B Surf Antigen Negative Negative 08/16/2023 12:33 PM EDT [facility] Hepatitis C Antibody Negative Negative 08/16/2023 12:33 PM EDT [facility] Hepatitis A Antibody IgM Negative Negative 08/16/2023 12:33 PM EDT [facility] Hepatitis B Core Antibody IgM Negative Negative 08/16/2023 12:33 PM EDT [facility] Blood Venous blood specimen / Unknown Venipuncture / Unknown 08/16/2023 10:24 AM EDT 08/16/2023 10:25 AM EDT Sindhu Rock APRN LAB BLOOD ORDERABLES Final Result Performing Organization Address City/[facility] Co de Phone Number [facility] [address] [place] [address] from Last 3 Months or Most Recently Relevant to Health Maintenance Insurance MEDICARE [employer] Care Teams Hydraulic Auto Jack Mechanic Relationship Specialty Start Date End Date Piotr Eason MD PCP - General Family Medicine 05/05/25
--- OUTSIDE RECORDS SUMMARY | 2025-05-07 10:18 | XMS_ITS | Encounter Summary ---
Author Organization Healthcare Address [address] [place] [address] Care Team Providers Care Cigar Packing Examiner Name Role Phone Jose Kraft MD Primary Care Provider [phone] Encounter Details Date Type Department Care Team ([facility] Contact Info) Description 02/02/2025 Results Follow-Up [facility] Endocrinology [address] [place] [address] Randy Osuna MD [address] [facility] [address] [place] [address] Social History Tobacco Use Types Packs/Day Years [...] Medical Office Building Surgical Specialties [address] [facility], [address] [place] [address] Nato Mejias MD [address] [facility] [address] [place] [address] 09/08/2025 11:20 AM EDT Office Visit [facility] [address], [facility] [address] [place] [address] Randy Osuna MD [address] [place] [address] documented as of this encounter Visit Diagnoses Not on filedocumented in this encounter Additional Health Concerns Assessment Noted Time A fall risk assessment has been complete d for the patient 02/01/2025 2:55 PM EDT A Body Mass Index follow-up plan has been documented for the patient 02/01/2025 4:04 PM EDT documented as of this encounter Care Teams Cigar Packing Examiner Relationship Specialty Start Date End Date Jose Kraft MD [address] [place] [address] PCP - General 03/31/21 05/04/25 documented as of this encounter
--- OUTSIDE RECORDS SUMMARY | 2025-05-07 10:18 | XMS_ITS | Encounter Summary ---
Author Organization Healthcare Address [address] [place] [address] Care Team Providers Care Marketing Traffic Coordinator Name Role Phone Jose Kraft MD Primary Care Provider [phone] Encounter Details Date Type Department Care Team (Late Contact Info) Description 04/27/2025 Telephone [facility] [address], [address] [place] [address] Angélica Mcdowell Social History Tobacco Use Types Packs/Day Years [...] on file documented as of this encounter Miscellaneous Notes * Telephone Encounter - Angélica Mcdowell - 04/27/2025 2:51 PM EDT Called pt to confirm appt, left VM documented in this encounter Plan of Treatment Upcoming Encounters Date Type Department Care Team (Late Contact Info) Description 06/24/2025 9:00 AM EDT Consult Medical Office Building Surgical Specialties [address] [facility], [address] [place] [address] Nato Mejias MD [address] [facility] [address] [place] [address] 09/08/2025 11:20 AM EDT Office Visit [facility] Care [facility] [address], [address] [place] [address] Randy Osuna MD [address] [facility] [address] [place] [address] documented as of this encounter Visit Diagnoses Not on filedocumented in this encounter Additional Health Concerns Assessment Noted Time A fall risk assessment has been complete d for the patient 02/01/2025 2:55 PM EDT A Body Mass Index follow-up plan has been documented for the patient 02/01/2025 4:04 PM EDT documented as of this encounter Care Teams Marketing Traffic Coordinator Relationship Specialty Start Date End Date Jose Kraft MD [address] [place] [address] PCP - General 03/31/21 05/04/25 documented as of this encounter
[2025-05-07 10:56] LABS: Creatinine,Urine Random 32 mg/dL (Not Estab.)
[2025-05-07 10:58] LABS: Collection Time,Urine 24 hours; Creatinine 24 Hour,Urine 952 mg/24hr (630-2500); Total Volume,Urine 2975 mL (250-2400)
[2025-05-08 11:13] LABS: Calcium, Urine 4.6 mg/dL (Not Estab.); Calcium, Urine 24hr 147 mg/24 hr (0-320)
== END 2025-05-07 23:59 | disposition home or self-care (01) ==
LOC: LAB 10:16
PROVIDERS: PCP Family Medicine; Visit Provider Internal Medicine Endocrinology, Diabetes & Metabolism
DX: E21.3 Hyperparathyroidism, unspecified (principal)
CPT/HCPCS: 82340; 82570

== ENCOUNTER 2025-05-24 09:28 | Outpatient (CLI) | payer MEDICARE, SELFPAY ==
--- OUTSIDE RECORDS SUMMARY | 2025-02-20 17:30 | XMS_ITS ---
Author Organization [facility] PE D ANGELINA Address [address] [facility] [address] [place] [address] Care Team Providers Care Blister Packaging Machine Operator Name Role Phone Jose Kraft Primary Care Provider [phone] Migration, Provider Unavailable Unavailable REASON FOR VISIT [facility] Encounter Medications Medication SIG (Take, Route, [...] review and pick correct strength-formulati on from [employer] options. If intended option is not shown, [...] review and pick correct strength-formulati on from [employer] options. If intended option is not shown, [...] Active Encounters Encounter Location Date Provider Diagnosis [facility] ANGEL[place] [address] [facility] [address] [place] [address] 02/20/2025 Provider Migration Plan Of Treatment Medication [...] * Stephanie HICKEYOB: [birth year] (70 yo F)Acc No.[id number]:02/20/2025 Patient: Bernice DIAS Provider: Kong lucero Migration :1955 A ge:70 Y S ex:Female Date:02/20/2025 Address:[address] [place], [place], [id number] Pcp:Jose Kraft Subjective: * Chief Complaints: * [address] [address] [facility] * Medical History: * [...] *Please review and pick correct strength-formulation from [employer] options. If intended option is not shown, [...] Electronic signature of Donny cotton Migration on 05/25/2025 at 09:49 AM EDT Sign off status: Pending * Provider: Kong lucero Migration Date: 0 02/20/2025 Generated for Jaki gary/Sharon/Katiana on: 05/25/2025 09:49 AM EDT
--- OUTSIDE RECORDS SUMMARY | 2025-05-05 15:20 | XMS_ITS | Encounter Summary ---
Author Organization [facility] Address [address] [place] [address] Care Team Providers Care Pupil Personnel Worker Name Role Phone Piotr Eason MD Primary Care Provider Alma vailable Reason for Referral * Consultation (Routine) - Authorized Specialty Diagnoses / Procedures Referred By Contac t Referred To Contact Diagnoses Hyperparathyroidism (CMS/HCC) Randy Osuna MD [address] [address] Phone: tel: fax: Referral ID Status Reason Start Date Expiration Date V isits Requested Visits Authorized [id number] Authorized 05/05/2025 11/04/2026 1 1 Reason for Visit * Reason Comments Follow-up * Consultation (Routine) - Closed Specialty Diagnoses / Procedures Referred By Pratik t Referred To Contact Diagnoses Hyperparathyroidism (CMS/HCC) Hypercalcemia Randy Osuna MD [address] [address] Phone: tel: fax: Referral ID Status Reason Start Date Expiration Date Visits Re quested Visits Authorized [id number] Closed 02/01/2025 08/03/2026 1 1 Encounter Details Date Type Department Care Team (Late st Contact Info) Description 05/05/2025 3:20 PM EDT Office Visit [facility] [address] [place] [address] Randy Osuna MD [address] [facility] [address] [place] [address] Primary hyperparathyroidism (CMS/HCC) (Primary Dx); [...] fracture: Denied She has SHIRLEY in at [facility] Past Medical History[1] Surgical History[2] Current Medications[3] [...] [facility] GALLBLADDER SURGERY N/A Gallbladder Surgery from [facility] HYSTERECTOMY N/A Hysterectomy from [facility] [3] Current [...] Upcoming Encounters Date Type Department Care Team ([facility] st Contact Info) Description 06/24/2025 9:00 AM EDT Consult Medical Office Building Surgical Specialties [facility] [address] [facility], [address] [place] [address] Nato Mejias MD [facility] [address] [address] 09/08/2025 11:20 AM EDT Office Visit [facility] [address], [address] [place] [address] Randy Osuna MD [address] [facility] [address] [place] [address] Scheduled Referrals Name Type Priority Associated Diagnoses Orde r Schedule Follow Up [facility] Outpatient Referral Routine Primary hyperparathyroidism (CMS/HCC) Expected: 09/04/2025, Expires: 11/06/2026 documented as of this encounter Results * Vitamin D 25 Hydroxy (05/05/2025 3:45 PM EDT) Vitamin D 25 Hydroxy 51.1 20.0 - 80.0 ng/mL 05/05/2025 6:35 PM EDT [facility] Blood Venous blood specimen / Unknown Venipuncture / Unknown 05/05/2025 3:45 PM EDT 05/05/2025 3:45 PM EDT Narrative [facility] - 05/05/2025 6:35 PM EDT Testing performed on Alex Rand Butter, standardized against NIST SRM 2972. When testing [...] MD LAB BLOOD ORDERABLES Final R esult [facility] [address] [place] [address] * (ABNORMAL) Comprehensive Metabolic Panel, Plasma (05/05/2025 3:45 PM EDT) Glucose, Plasma 189(H) 74 - 99 mg/dL 05/05/2025 6:21 PM EDT [facility] BUN, Plasma 10 8 - 23 mg/dL 05/05/2025 6:21 PM EDT [facility] Creatinine, Plasma 0.73 0.60 - 1.10 mg/dL 05/05/2025 6:21 PM EDT [facility] BUN/Creatinine Ratio 14 05/05/2025 6:21 PM EDT [facility] Sodium, Plasma 138 136 - 145 mmol/L 05/05/2025 6:21 PM EDT [facility] Potassium, Plasma 4.5 3.6 - 4.9 mmol/L 05/05/2025 6:21 PM EDT [facility] Chloride, Plasma 101 97 - 107 mmol/L 05/05/2025 6:21 PM EDT [facility] CO2, Plasma 23 22 - 29 mmol/L 05/05/2025 6:21 PM EDT [facility] Anion Gap 14 6 - 16 mmol/L 05/05/2025 6:21 PM EDT [facility] Total Calcium, Plasma 10.6(H) 8.9 - 10.2 mg/dL 05/05/2025 6:21 PM EDT [facility] Total Protein 7.0 6.3 - 7.9 g/dL 05/05/2025 6:21 PM EDT [facility] Albumin, Plasma 4.1 3.5 - 5.2 g/dL 05/05/2025 6:21 PM EDT [facility] AST, Plasma 24 10 - 35 U/L 05/05/2025 6:21 PM EDT [facility] ALT, Plasma 22 10 - 35 U/L 05/05/2025 6:21 PM EDT [facility] Alkaline Phosphatase, Plasma 71 46 - 142 U/L 05/05/2025 6:21 PM EDT [facility] Total Bilirubin, Plasma 0.2 0.2 - 1.1 mg/dL 05/05/2025 6:21 PM EDT [facility] eGFRcr 88.6 mL/min/1.7 3m*2 05/05/2025 6:21 PM [facility] Comment:Reported eGFRcr in m L/min/1.73m2 is based the CKD-EPI 2020 equation that does not use a race coefficient. Blood Venous blood specimen / Unknown Venipuncture / Unknown 05/05/2025 3:45 PM EDT 05/05/2025 3:45 PM EDT Randy Osuna MD LAB BLOOD ORDERABLES Final R esult Performing Organization Address [facility] Co de Phone Number [facility] [address] [place] [address] * (ABNORMAL) Ionized calcium, serum (05/05/2025 3:45 PM EDT) Ionized Calcium, Serum 5.7(H) 4.6 - 5.3 mg/dL LAB HEMATOLOGY METHOD 05/05/2025 5:16 PM EDT [facility] Blood Venous blood specimen / Unknown Venipuncture / Unknown 05/05/2025 3:45 PM EDT 05/05/2025 3:45 PM EDT Randy Osuna MD LAB BLOOD ORDERABLES Final R esult Performing Organization Address [facility] de Phone Number [facility] [address] [place] [phone] * Phosphorus, Plasma (05/05/2025 3:45 PM EDT) Phosphorus, Plasma 3.5 2.5 - 4.5 mg/dL 05/05/2025 6:21 PM EDT [facility] Blood Venous blood specimen / Unknown Venipuncture / Unknown 05/05/2025 3:45 PM EDT 05/05/2025 3:45 PM EDT Randy Osuna MD LAB BLOOD ORDERABLES Final R esult Performing Organization Address [facility] de Phone Number [facility] [address] [place] [address] * (ABNORMAL) Magnesium, Plasma (05/05/2025 3:45 PM EDT) Magnesium, Plasma 1.7(L) 1.9 - 2.4 mg/dL 05/05/2025 6:21 PM EDT [facility] Blood Venous blood specimen / Unknown Venipuncture / Unknown 05/05/2025 3:45 PM EDT 05/05/2025 3:45 PM EDT us Randy Osuna MD LAB BLOOD ORDERABLES Final R esult Performing Organization Address City/[facility] Co de Phone Number [facility] [address] [place] [address] * (ABNORMAL) PTH Intact Total (05/05/2025 3:45 PM EDT) PTH Intact Total 119(H) 9 - 77 pg/mL 05/05/2025 6:18 PM EDT [facility] Blood Venous blood specimen / Unknown Venipuncture / Unknown 05/05/2025 3:45 PM EDT 05/05/2025 3:45 PM EDT Narrative [facility] - 05/05/2025 6:18 PM EDT Assay performed by immunoassay at the [facility]. Performed on Alex [employer] Butter chemiluminescent immunoassay, tractable to the World Health Organization's first international standard for PTH from the NIBS, Code 79/500. Results obtained from different test methods or kits cannot be used interchangeably. Randy Osuna MD LAB BLOOD ORDERABLES Final R esult Performing Organization Address [facility] Co de Phone Number [address] [address] documented in this encounter Visit Diagnoses Diagnosis [...] documented as of this encounter Care Teams Pupil Personnel Worker Relationship Specialty Start Date End Date Piotr Eason MD PCP - General Family Medicine 05/05/25 documented as of this encounter
[2025-05-24 18:23] LABS: Cholesterol 155 mg/dl (140-200); HDL Cholesterol 60 mg/dl (40-60); Triglycerides 218 mg/dl (30-150)
[2025-05-24 18:54] LABS: Hepatitis C Ab Qual. W/ RFX NEGATIVE (Negative)
[2025-05-24 19:13] LABS: Hemoglobin A1C 7.9 % (4.0-6.0)
--- OUTSIDE RECORDS SUMMARY | 2025-05-25 09:49 | XMS_ITS | Patient Health Record ---
Author Organization [facility] Address [address] [facility] [address] [place] [address] Care Team Providers Care Manufacturing Assistant Name Role Phone Jose Kraft Primary Care Provider Migration, Provider Unavailable Unavailable Allergies No Known Allergies Medications Medication SIG (Take, Route, Frequency, Duration) Notes Start Date End Date Status Folic Acid 1 MG 1 tab(s) orally once a day; Duration: 90 days 05/25/2022 Active Atorvastatin Calcium 20 MG 1 tab(s) orally once a day (at bedtime); Duration: 90 Active DILACOR 240 MGM 1 TAB DAILY; Duration: 30 DAYS *Please review for potential replacement for e-prescription and drug interaction check* 07/10/2019 Active Flonase Allergy Relief 0.05% 2 SPRAY(S) INTRANASALLY ONCE A DAY *Please review and pick correct strength-formulati on from [employer] options. If intended option is not shown, discontinue and re-order from Quick Search* Active Prevacid 30 MG 1 cap(s) orally once a day; Duration: 90 days Active Jardiance 25 MG 1 tab(s) orally once a day (in the morning); Duration: 30 day(s) 02/28/2022 Active Estradiol 1 MG Take 1/2 (one-half) tablet by mouth once daily; Duration: 90 Active Dilt-XR 240 MG TAKE 1 CAPSULE BY MOUTH EVERY DAY; Duration: 90 Active Meloxicam 15 MG 1 tab(s) orally once a day; Duration: 90 Active Farxiga 10 MG 1 tab(s) orally once a day; Duration: 30 day(s) 02/23/2022 Active ULTRAM 50 MG [...] review and pick correct strength-formulati on from [employer] options. If intended option is not shown, discontinue and re-order from Quick Search* Active Diclofenac Sodium 1 % as directed applied topically 4 times a day; Duration: 30 day(s) 06/16/2019 Active Lisinopril 20 MG 1 tab(s) orally once a day; Duration: 90 Active Alendronate Sodium 35 MG 1 tab(s) orally once a week; Duration: 28 Active Pataday 0.2 % 1 gtt in each affected eye once a day; Duration: 10 day(s) Active Gabapentin 100 MG 1 cap(s) orally 2 times a day; Duration: 30 days 03/09/2022 Active Immunizations Vaccine Route [...] Problem Type II diabetes mellitus without complication (640310976) Type 2 diabetes mellitus without complications (E11.9) Active confirmed Problem Rheumatoid arthritis (90803517) Rheumatoid arthritis without rheumatoid factor, right hand (M06.041) Active confirmed Problem Rheumatoid arthritis (16901169) Rheumatoid arthritis without rheumatoid factor, left hand (M06.042) Active confirmed Problem Osteoarthritis of knee (339169357) Unilateral primary osteoarthritis, left knee (M17.12) Active confirmed Problem Hyperlipidemia (98121456) Hyperlipemia, idiopathic familial (E78.5) Active confirmed Problem Essential hypertension (78028683) Hypertension, essential (I10) Active confirmed Problem Obesity (634414770) Obesity (BMI 30-39.9) (E66.9) Active confirmed Problem Constipation (46381428) Constipation, unspecified constipation type (K59.00) Active confirmed Problem Sciatica (94183710) Right sided sciatica (M54.31) Active confirmed Problem Rotator cuff tear arthropathy (039308379) Rotator cuff tear arthropathy of right shoulder (M12.811) Active confirmed Problem Osteopenia (disorder) (606350705) Osteopenia determined by x-ray (M85.80) Active confirmed Problem Postmenopausal state (32714851) Asymptomatic menopause (Z78.0) Active confirmed Encounters Encounter Location Date Provider Diagnosis [facility] [place] [address] [facility] [address] [place] [address] 02/20/2025 Provider Migration Plan Of Treatment Pending Test Test Name Order Date Urinalysis 04/17/2016 Urinalysis 08/16/2020 N-CRYSTAL (Antinuclear Antibody) 09/27/2007 Rapid Strep 07/04/2007 Microalbumin (In-House) 02/21/2015 Microalbumin (In-House) 12/06/2015 Microalbumin (In-House) 04/17/2016 Microalbumin (In-House) 04/25/2018 N-CMP 10/31/2009 N-Lipid Panel 10/31/2009 N-HbA1C 12/23/2009 Physical Therapy 08/08/2017 Mammogram : Bilateral 08/16/2020 Mammogram : Bilateral 02/17/2008 Dietary Consult 03/26/2011 H-CBC with AUTO DIFF 01/23/2012 H-CMP 01/23/2012 H-CMP 03/19/2016 H-LIPID PANEL 01/23/2012 H-HGBA1C 01/23/2012 H-HGBA1C 03/19/2016 H-TSH 01/23/2012 H-RHEUMATOID ARTHRITIS PROFILE 2 H-SED RATE 01/23/2012 C-CBC 08/25/2019 C-CBC 02/21/2015 C-CBC 08/26/2010 C-Sed Rate (ESR) 02/21/2015 C-CMP 02/21/2015 C-CMP 08/26/2010 C-CMP 08/25/2019 C-CMP 01/10/2021 C-LIPID PANEL 08/26/2010 C-LIPID PANEL 02/21/2015 C-HGBA1C 02/21/2015 C-HGBA1C 08/26/2010 C-CCP IGG Antibodies 05/07/2011 VENIPUNCT, ROUTINE* 12/06/2015 M-Erythrocyte Sedimentation Rate 021 M-Vitamin D 25 Hydroxy 11/21/2021 M-Vitamin D 25 Hydroxy 08/08/2021 Insurance Providers Payer Name Payer Address Payer Phone Subscriber Number Group Number Insured Name Patient Relationship to Insured Coverage Start Date Coverage End Date MEDICARE PART B [address] [phone] [id number] Bernice Cooney Self - patient is the insured [facility] MEDICARE SUPPLEMENT INSURANCE [address] [place] [phone] [id number] Bernice Cooney Self - patient is the insured Medical (General) History Medical History History ICD Code rheumatoid arthritis hypercholestrolemia hormone replacement therapy Esophageal reflux hypertension type II diabetes Colonoscopy 2010 at [facility]... normal. Repeated at [facility] 10/07 with tubular adenomas Normal mammogram 04/03 and 08/06 and 10/07 20 and 10/2021 osteopenia on DEXA scan Apri l 2016 - slightly worse September 06, alendronate started Surgical History Surgery Date(Month/Year) Cholecystectomy 2 c-sections total hysterectomy appendectomy hernia repair colonoscopy 2019 Hospitalization History Reason Date(Month/Year) surgeries
--- OUTSIDE RECORDS SUMMARY | 2025-05-25 09:49 | XMS_ITS | Encounter Summary ---
Author Organization Healthcare Address [address] [place] [address] Care Team Providers Care Oil Pipeline Operator Name Role Phone Jose Kraft MD Primary Care Provider [phone] Piotr Eason MD Primary Care Provider Alma vailable Encounter Details Date Type Department Care Team (Late st Contact Info) Description 09/28/2024 Orders Only External Location [address] [place] [address] Provider, External Social History Tobacco Use Types [...] Office Building Surgical Specialties [address] [facility], [address] [place] [address] Nato Mejias MD [address] [facility] [address] [place] [address] 09/08/2025 11:20 AM EDT [facility] Visit [facility] [address], [address] [place] [address] Randy Osuna MD [facility] [address] [place] [address] documented as of this encounter [...] documented as of this encounter Care Teams Oil Pipeline Operator Relationship Specialty Start Date End Date Jose Kraft MD [address] [place] [address] PCP - General 03/31/21 05/04/25 Piotr Eason MD PCP - General Family Medicine 05/05/25 documented as of this encounter
--- OUTSIDE RECORDS SUMMARY | 2025-05-25 09:49 | XMS_ITS | Encounter Summary ---
Author Organization Healthcare Address [address] [place] [address] Care Team Providers Care Black Jack Dealer Name Role Phone Piotr Eason MD Primary Care Provider Alma vailable Encounter Details Date Type Department Care Team (Late Contact Info) Description 05/07/2025 Orders Only [facility] [address] [place] [address] Randy Osuna MD 2195 [facility] 125 [place] [address] Social History Tobacco Use Types [...] Medical Office Building Surgical Specialties [address] [facility], [address] [place] [address] Nato Mejias MD [address] [facility] 302 [place] [address] 09/08/2025 11:20 AM EDT [facility] [address], [address] [place] [address] Randy Osuna MD [address] [address] documented as of this encounter Procedures Procedure Name Priority Date/Time Associated Diagnosis Comments CREATININE, 24 HOUR URINE Routine 05/07/2025 1:13 PM EDT documented in this encounter Results * Creatinine, 24 Hour Urine (05/07/2025 1:13 PM EDT) Urine Urine specimen obtained by clean catch procedure / Unknown Randy Osuna MD LAB URINE ORDERABLES Final R esult documented in this encounter Visit Diagnoses Not on filedocumented in this encounter Additional Health Concerns Assessment Noted Time A fall risk assessment has been complete d for the patient 05/05/2025 2:58 PM EDT A Body Mass Index follow-up plan has been documented for the patient 05/05/2025 3:28 PM EDT documented as of this encounter Care Teams Black Jack Dealer Relationship Specialty Start Date End Date Piotr Eason MD PCP - General Family Medicine 05/05/25 documented as of this encounter
--- OUTSIDE RECORDS SUMMARY | 2025-05-25 09:49 | XMS_ITS | Encounter Summary ---
Author Organization Healthcare Address [address] [place] [address] Care Team Providers Care Packaging Inspector Name Role Phone Piotr Eason MD Primary Care Provider Alma vailable Encounter Details Date Type Department Care Team (Late Contact Info) Description 05/10/2025 Orders Only [facility] [place] [facility] [address] [place] [address] Randy Osuna MD [address] [facility] 125 [place] [address] Social History Tobacco Use Types [...] Medical Office Building Surgical Specialties [address] [facility], [address] [place] [address] Ntao Mejias MD [address] [facility] 302 [place] [address] 09/08/2025 11:20 AM EDT [facility] [address], [address] [place] [address] Randy Osuna MD [address] [address] documented as of this encounter Procedures Procedure Name Priority Date/Time Associated Diagnosis Comments CALCIUM, 24 HOUR URINE Routine 05/07/2025 8:19 AM EDT documented in this encounter Results * Calcium, 24 Hour Urine (05/07/2025 8:19 AM EDT) Urine Urine specimen obtained by [...] documented as of this encounter Care Teams Packaging Inspector Relationship Specialty Start Date End Date Piotr Eason MD PCP - General Family Medicine 05/05/25 documented as of this encounter
--- OUTSIDE RECORDS SUMMARY | 2025-05-25 09:49 | XMS_ITS | Encounter Summary ---
Author Organization Healthcare Address [address] [place] [address] Care Team Providers Care Repairer Switchgear Name Role Phone Jose Kraft MD Primary Care Provider [phone] Encounter Details Date Type Department Care Team (Late Contact Info) Description 04/27/2025 Telephone [facility] [address], [address] [place] [address] Angélica Mcdowell Social History Tobacco [...] Medical Office Building Surgical Specialties [address] [facility], [address] [place] [address] Nato Mejias MD [address] [facility] 302 [place] [address] 09/08/2025 11:20 AM EDT Office Visit [facility] [address], [address] [place] [address] Randy Osuna MD 2195 [facility] [address] [place] [address] documented as of this encounter Visit Diagnoses Not on filedocumented in this encounter Additional Health Concerns Assessment Noted Time A fall risk assessment has been complete d for the patient 02/01/2025 2:55 PM EDT A Body Mass Index follow-up plan has been documented for the patient 02/01/2025 4:04 PM EDT documented as of this encounter Care Teams Repairer Switchgear Relationship Specialty Start Date End Date Jose Kraft MD [address] [place] [address] PCP - General 03/31/21 05/04/25 documented as of this encounter
--- OUTSIDE RECORDS SUMMARY | 2025-05-25 09:49 | XMS_ITS | Encounter Summary ---
Author Organization Healthcare Address [address] [place] [address] Care Team Providers Care Classifying Machine Operator Name Role Phone Piotr Eason MD Primary Care Provider Alma vailable Encounter Details Date Type Department Care Team (Late Contact Info) Description 05/18/2025 Results Follow-Up [facility] [address] [place] [address] Randy Osuna MD 2195 [facility] 125 [place] [address] Social History Tobacco Use Types [...] Office Building Surgical Specialties [address], [address] [place] [address] Nato Mejias MD [address] [facility] 302 [place] [address] 09/08/2025 11:20 AM EDT Office Visit [facility] [address], [address] [place] [address] Randy Osuna MD [address] [address] documented as of this encounter Visit Diagnoses Not on filedocumented in this encounter Additional Health Concerns Assessment Noted Time A fall risk assessment has been complete d for the patient 05/05/2025 2:58 PM EDT A Body Mass Index follow-up plan has been documented for the patient 05/05/2025 3:28 PM EDT documented as of this encounter Care Teams Classifying Machine Operator Relationship Specialty Start Date End Date Piotr Eason MD PCP - General Family Medicine 05/05/25 documented as of this encounter
--- OUTSIDE RECORDS SUMMARY | 2025-05-25 09:49 | XMS_ITS | Clinical Summary ---
Author Organization [facility] Address [address] [place] [address] Care Team Providers Care Carton Making Machine Operator Name Role Phone Piotr Eason [...] Encounters Date Type Department Care Team Description 05/18/2025 Results Follow-Up [facility] [address] [place] [address] Randy Osuna MD 05/18/2025 Results Follow-Up [facility] End[facility] [address] [place] [address] Randy Osuna MD 05/10/2025 [facility] [address] [place] [address] Randy Osuna MD 05/07/2025 Orders Only [facility] Endocr[facility]ology [address] [place] [address] Randy Osuna MD 05/05/2025 3:20 PM EDT Office Visit [facility] [address], [address] [place] [address] Randy Osuna MD Primary hyperparathyroidism (CMS/HCC) (Primary Dx); Hypercalcemia; Osteopenia of neck of left femur 05/05/2025 Travel 04/27/2025 Telephone [facility] [address], [address] [place] [address] Angélica Mcdowell from Last 3 Months Immunizations Immunization Administration Dates Next Due DTaP, 5 pertussis antigens 12/13/2016 Influenza, High-dose, Split Virus, Trivalent, Injectable, preservative free 08/08/2021,09/27/2020 Influenza, Split (incl. timoteo fied surface antigen) 08/24/2014,08/24/2013,08/01/2012,08/26,09/09/2009,09/22/2008,09/29/2007 Influenza, high-dose, quadrivalent 09/18/2023 Influenza, injectable, quadrivalent 08/01/2018,0 08/08/2017 Influenza, injectable, quadr ivalent, preservative free 08/22/2022,08/25/2019 Influenza, seasonal, injecta ble, preservative free 09/08/2024 Novel [id number], all formulations 10/10/2009 Pneumococcal Conjugate PCV 13 [...] Medical Office Building Surgical Specialties [address] [facility], [address] [place] [address] Nato Mejias MD [address] [facility] 302 [place] [address] 09/08/2025 11:20 AM EDT Office Visit [facility] [address], [address] [place] [address] Randy Osuna MD 8[address] [facility] [address] [place] [address] Health Maintenance Due Date Last Done Comments [...] Vaccines (1 of 2) 02/07/2017 12/13/2016, 10/25/2016 [id number] Vaccine (4 - season) 2024 01/12/2022, 07/06/2021, 06/15/2021 [facility]-Influenza Vaccine (#1) 07/19/202509/08, 09/18/2023, 08/22/2022, Additional history exists [facility]-DTaP,Tdap,and Td Vaccines (3 - Td or Tdap) 12/13/2026 12/13/2016, 10/25/2016 [facility]-Pneumococcal Vaccine: 50+ Years Completed 09/27/2020, 12/13/2016 [facility]-Hepatitis C Screening Completed 08/16/2023 [facility]-Obesity Intervention Completed 025, 02/01/2025, 09/18/2023, Additional [...] HOUR URINE Routine 05/07/2025 1:13 PM EDT CALCIUM, 24 HOUR URINE Routine 8:19 AM EDT PTH INTACT TOTAL Routine 05/05/2025 3:45 PM [...] 05/05/2025 3:45 PM EDT Hyperparathyroidis m (CMS/HCC) ACUTE HEPATITIS PANEL Routine 08/16/2023 10:24 AM EDT High risk medication use from Last 3 Months or Most Recently Relevant to Health Maintenance Results * Creatinine, 24 Hour Urine (05/07/2025 1:13 PM EDT) Urine Urine specimen obtained by clean catch procedure / Unknown us Randy Osuna MD LAB URINE ORDERABLES Final R esult * Calcium, 24 Hour Urine (05/07/2025 8:19 AM EDT) Urine Urine specimen obtained by clean catch procedure / Unknown Randy Osuna MD LAB URINE ORDERABLES Final R esult * (ABNORMAL) Ionized calcium, serum (05/05/2025 3:45 PM EDT) Ionized Calcium, Serum 5.7(H) 4.6 - 5.3 mg/dL LAB HEMATOLOGY METHOD 05/05/2025 5:16 PM EDT [facility] Blood Venous blood specimen / Unknown Venipuncture / Unknown 05/05/2025 3:45 PM EDT 05/05/2025 3:45 PM EDT Randy Osuna MD LAB BLOOD ORDERABLES Final R esult Performing Organization Address [facility] Co de Phone Number [facility] [address] [place] [phone] * Vitamin D 25 Hydroxy (05/05/2025 3:45 PM EDT) Vitamin D 25 Hydroxy 51.1 20.0 - 80.0 ng/mL 05/05/2025 6:35 PM EDT [facility] Blood Venous blood specimen / Unknown Venipuncture / Unknown 05/05/2025 3:45 PM EDT 05/05/2025 3:45 PM EDT Narrative [facility] - 05/05/2025 6:35 PM EDT Testing performed on Alex Magistrate Judge, standardized against NIST SRM 2972. When testing [...] to 80 ng/mL Possible toxicity: >100 ng/mL Randy Osuna MD LAB BLOOD ORDERABLES Final R esult Performing Organization Address City/[facility]/ZIP Co de Phone Number [facility] [address] [place] [address] * Phosphorus, Plasma (05/05/2025 3:45 PM EDT) Phosphorus, Plasma 3.5 2.5 - 4.5 mg/dL 05/05/2025 6:21 PM EDT [facility] Blood Venous blood specimen / Unknown Venipuncture / Unknown 05/05/2025 3:45 PM EDT 05/05/2025 3:45 PM EDT Randy Osuna MD LAB BLOOD ORDERABLES Final R esult Performing Organization Address City/[facility]/ZIP Co de Phone Number [facility] [address] [place] [address] * (ABNORMAL) PTH Intact Total (05/05/2025 3:45 PM EDT) Pathologist [facility] PTH Intact Total 119(H) 9 - 77 pg/mL 05/05/2025 6:18 PM EDT [facility] Blood Venous blood specimen / Unknown Venipuncture / Unknown 05/05/2025 3:45 PM EDT 05/05/2025 3:45 PM EDT Narrative [facility] - 05/05/2025 6:18 PM EDT Assay performed by immunoassay at the [facility]. Performed on Alex Magistrate Judge chemiluminescent immunoassay, tractable to the World Health Organization's first international standard for PTH from the NIBS, Code 79/500. Results obtained from different test methods or kits cannot be used interchangeably. Randy Osuna MD LAB BLOOD ORDERABLES Final R esult [facility] [address] [place] [address] * (ABNORMAL) Magnesium, Plasma (05/05/2025 3:45 PM EDT) Pathologist [facility] Magnesium, Plasma 1.7(L) 1.9 - 2.4 mg/dL 05/05/2025 6:21 PM EDT [facility] Blood Venous blood specimen / Unknown Venipuncture / Unknown 05/05/2025 3:45 PM EDT 05/05/2025 3:45 PM EDT us Randy Osuna MD LAB BLOOD ORDERABLES Final R esult [facility] [address] [place] [address] * (ABNORMAL) Comprehensive Metabolic Panel, Plasma (05/05/2025 3:45 PM EDT) Glucose, Plasma 189(H) 74 - 99 mg/dL 05/05/2025 6:21 PM EDT [facility] BUN, Plasma 10 8 - 23 mg/dL 05/05/2025 6:21 PM EDT [facility] Creatinine, Plasma 0.73 0.60 - 1.10 mg/dL 05/05/2025 6:21 PM EDT [facility] BUN/Creatinine Ratio 14 05/05/2025 6:21 PM EDT [facility] Sodium, Plasma 138 136 - 145 mmol/L 05/05/2025 6:21 PM EDT [facility] Potassium, Plasma 4.5 3.6 - 4.9 mmol/L 05/05/2025 6:21 PM EDT [facility] Chloride, Plasma 101 97 - 107 mmol/L 05/05/2025 6:21 PM EDT [facility] CO2, Plasma 23 22 - 29 mmol/L 05/05/2025 6:21 PM EDT [facility] Anion Gap 14 6 - 16 mmol/L 05/05/2025 6:21 PM EDT [facility] Total Calcium, Plasma 10.6(H) 8.9 - 10.2 mg/dL 05/05/2025 6:21 PM EDT [facility] Total Protein 7.0 6.3 - 7.9 g/dL 05/05/2025 6:21 PM EDT [facility] Albumin, Plasma 4.1 3.5 - 5.2 g/dL 05/05/2025 6:21 PM EDT [facility] AST, Plasma 24 10 - 35 U/L 05/05/2025 6:21 PM EDT [facility] ALT, Plasma 22 10 - 35 U/L 05/05/2025 6:21 PM EDT [facility] Alkaline Phosphatase, Plasma 71 46 - 142 U/L 05/05/2025 6:21 PM EDT [facility] Total Bilirubin, Plasma 0.2 0.2 - 1.1 mg/dL 05/05/2025 6:21 PM EDT [facility] eGFRcr 88.6 mL/min/1.7 3m*2 05/05/2025 6:21 PM EDT [facility] Comment:Reported eGFRcr in m L/min/1.73m2 is based the CKD-EPI 2020 equation that does not use a race coefficient. Blood Venous blood specimen / Unknown Venipuncture / Unknown 05/05/2025 3:45 PM EDT 05/05/2025 3:45 PM EDT Randy Osuna MD LAB BLOOD ORDERABLES Final R esult [facility] [address] [place] [address] * Acute Hepatitis Panel (08/16/2023 10:24 AM EDT) Hepatitis B Surf Antigen Negative Negative 08/16/2023 12:33 PM EDT [facility] Hepatitis C Antibody Negative Negative 08/16/2023 12:33 PM EDT [facility] Hepatitis A Antibody IgM Negative Negative 08/16/2023 12:33 PM EDT [facility] Hepatitis B Core Antibody IgM Negative Negative 08/16/2023 12:33 PM EDT [facility] Blood Venous blood specimen / Unknown Venipuncture / Unknown 08/16/2023 10:24 AM EDT 08/16/2023 10:25 AM EDT Sindhu Rock APRN LAB BLOOD ORDERABLES Final Result Performing Organization Address City/[facility]/ZIP Co de Phone Number [facility] [address] [place] [address] from Last 3 Months or Most Recently Relevant to Health Maintenance Insurance MEDICARE Member Subscriber Plan / Payer (Ef fective 2009-Present) Name:Bernice Cooney Member ID:[id number] Relation to Subscriber:Self Name:Bernice Cooney Subscriber ID:[id number] Payer ID:MEDICARE Group ID:Not on file Type:Medicare Address: [place] [phone] [facility] Care Teams Carton Making Machine Operator Relationship Specialty Start Date End Date Piotr Eason MD PCP - General Family Medicine 05/05/25
--- OUTSIDE RECORDS SUMMARY | 2025-05-25 09:49 | XMS_ITS | Encounter Summary ---
Author Organization Healthcare Address [address] [place] [address] Care Team Providers Care Manager Card Name Role Phone Jose Kraft MD Primary Care Provider [phone] Reason for Referral * Consultation (Routine) - Authorized Specialty Diagnoses / Procedures Referred By Contac t Referred To Contact General, Endocrine & Minimally Invasive Surgery / General Surgery Diagnoses Primary hyperparathyroidism (CMS/HCC) Randy Osuna MD [address] [facility] 125 [place] [address] Phone: tel: fax: Referral ID Status Reason Start Date Expiration Date Visits Requested Visits Authorized [id number] Authorized Specialty Services Required 02/08/2025 08/10/2026 1 1 Encounter Details Date Type Department Care Team ([facility] Contact Info) Description 02/08/2025 Results Follow-Up [facility] [address] [facility] [address] [place] [address] Judy Long RN [facility] Social History Tobacco Use [...] Specialties [address] [place] [address] Nato Mejias MD [address] [place] [address] 09/08/2025 11:20 AM EDT Office Visit [facility] [address], [address] [place] [address] Randy Osuna MD 2[address] [facility] [address] [place] [address] Scheduled Referrals Name Type Priority [...] documented as of this encounter Care Teams Manager Card Relationship Specialty Start Date End Date Jose Kraft MD [address] [place] [id number] PCP - General 03/31/21 05/04/25 documented as of this encounter
--- OUTSIDE RECORDS SUMMARY | 2025-05-25 09:49 | XMS_ITS | Encounter Summary ---
Author Organization Healthcare Address [address] [place] [address] Care Team Providers Care Slab Depiler Operator Name Role Phone Piotr Eason MD [...] Medical Office Building Surgical Specialties [address] [facility], [address] [place] [address] Nato Mejias MD [address] [facility] 302 [place] [address] 09/08/2025 11:20 AM EDT [facility] [address], [address] [place] [address] Randy Osuna MD 2[address] [facility] 125 [place] [address] documented as of this encounter Visit Diagnoses Not on filedocumented in this encounter Additional Health Concerns Assessment Noted Time A fall risk assessment has been complete d for the patient 05/05/2025 2:58 PM EDT A Body Mass Index follow-up plan has been documented for the patient 05/05/2025 3:28 PM EDT documented as of this encounter Care Teams Slab Depiler Operator Relationship Specialty Start Date End Date Piotr Eason MD PCP - General Family Medicine 05/05/25 documented as of this encounter
--- OUTSIDE RECORDS SUMMARY | 2025-05-25 09:49 | XMS_ITS | Encounter Summary ---
Author Organization Healthcare Address [address] [place] [address] Care Team Providers Care Data Analysis Intern Name Role Phone Jose Kraft MD Primary Care Provider [phone] Encounter Details Date Type Department Care Team ([facility] Contact Info) Description 02/02/2025 Results Follow-Up [facility] Endocrinology [address] [place] [address] Randy Osuna MD 2[address] [facility] 125 [place] [address] Social History Tobacco Use Types [...] Office Building Surgical Specialties [address] [facility], [address] [place] [address] Nato Mejias MD [address] [facility] 302 [place] [address] 09/08/2025 11:20 AM EDT Office Visit [facility] [address] [place] [address] Randy Osuna MD [address] [place] [address] documented as of this encounter Visit Diagnoses Not on filedocumented in this encounter Additional Health Concerns Assessment Noted Time A fall risk assessment has been complete d for the patient 02/01/2025 2:55 PM EDT A Body Mass Index follow-up plan has been documented for the patient 02/01/2025 4:04 PM EDT documented as of this encounter Care Teams Data Analysis Intern Relationship Specialty Start Date End Date Jose Kraft MD [address] [place] [id number] PCP - General 03/31/21 05/04/25 documented as of this encounter
--- OUTSIDE RECORDS SUMMARY | 2025-05-25 09:49 | XMS_ITS | Encounter Summary ---
Author Organization Healthcare Address [address] [place] [address] Care Team Providers Care Software Engineer Web Services Name Role Phone Piotr Eason MD Primary Care Provider Alma vailable Encounter Details Date Type Department Care Team (Late Contact Info) Description 05/18/2025 Results Follow-Up [facility] [address] [place] [address] Randy Osuna MD 2195 [facility] 125 [place] [address] Social History Tobacco Use Types [...] Specialties [address] [place] [address] Nato Mejias MD [address] [facility] 302 [place] [address] 09/08/2025 11:20 AM EDT Office Visit [facility] [address], [address] [place] [address] Randy Osuna MD [address] [address] documented as of this encounter Visit Diagnoses Not on filedocumented in this encounter Additional Health Concerns Assessment Noted Time A fall risk assessment has been complete d for the patient 05/05/2025 2:58 PM EDT A Body Mass Index follow-up plan has been documented for the patient 05/05/2025 3:28 PM EDT documented as of this encounter Care Teams Software Engineer Web Services Relationship Specialty Start Date End Date Piotr Eason MD PCP - General Family Medicine 05/05/25 documented as of this encounter
== END 2025-05-24 23:59 | disposition home or self-care (01) ==
LOC: LAB.DROPOF 05-25 09:46
PROVIDERS: PCP Family Medicine; Visit Provider Family Medicine
DX: Z11.59 Encounter for screening for other viral diseases (principal); E78.5 Hyperlipidemia, unspecified; E11.9 Type 2 diabetes mellitus without complications
CPT/HCPCS: 80061; 83036; 86803; 87389

== ENCOUNTER 2025-08-09 15:16 | Outpatient (CLI) | payer MEDICARE, SELFPAY ==
--- OUTSIDE RECORDS SUMMARY | 2025-02-20 17:30 | XMS_ITS ---
Author Organization [facility] PE D ANGELIAN Address [address] [facility] [address] [place] [address] Care Team Providers Care Application Support Name Role Phone Jose Kraft Primary Care Provider Migration, Provider Unavailable Unavailable REAS[facility] FOR VISIT [facility] Encounter Medications Medication SIG (Take, [...] review and pick correct strength-formulati on from [employer] options. If intended option is not shown, [...] review and pick correct strength-formulati on from [employer] options. If intended option is not shown, [...] Active Encounters Encounter Location Date Provider Diagnosis [facility] IM PED AN[place]EL[place] [address] [facility] [address] [place] [address] 02/20/2025 Provider Migration Plan Of Treatment Medication [...] * Stephanie HICKEYOB: [birth year] (70 yo F)Acc No.[id number]:02/20/2025 Patient: Bernice DIAS Provider: Kong lucero Migration :1955 A ge:70 Y S ex:Female Date:02/20/2025 [facility] [place] [place] [id number] Pcp:Jose Kraft Subjective: * Chief Complaints: * [...] *Please review and pick correct strength-formulation from [employer] options. If intended option is not shown, [...] Electronic signature of Donny cotton Migration on 08/09/2025 at 03:20 PM EDT Sign off status: Pending * Provider: Kong lucero Migration Date: 0 02/20/2025 Generated for Jaki gary/Sharon/Katiana on: 08/09/2025 03:20 PM EDT
--- OUTSIDE RECORDS SUMMARY | 2025-06-24 09:00 | XMS_ITS | Encounter Summary ---
Author Organization [facility] Address [address] [place] [address] Care Team Providers Care Pencil Inspector Name Role Phone Piotr Eason MD Primary Care Provider Alma vailable Reason for Visit * Consultation (Routine) - Closed Specialty Diagnoses / Procedures Referred By Contac t Referred To Contact General, Endocrine & Minimally Invasive Surgery / General Surgery Diagnoses Primary hyperparathyroidism (CMS/HCC) Randy Osuna MD [address] [address] Phone: tel: fax: Referral ID Status Reason Start Date Expiration Date V isits Requested Visits Authorized [id number] Closed Specialty Services Required 02/08/2025 08/10/2026 1 1 Encounter Details Date Type Department Care Team (Latest Contact Info) Description 06/24/2025 9:00 AM EDT Consult Medical Office Building Surgical [facility] [address], [address] [place] [address] Nato Mejias MD [address] [facility] [address] [place] [address] Primary hyperparathyroidism (CMS/HCC) (Primary Dx) Social History Tobacco Use Types Packs/Day Years Used Date Smoking Tobacco: Never Smokeless Tobacco: Never Alcohol Use Standard Drinks/Week Comments Never 0 (1 standard drink = 0.6 oz pur e alcohol) Humiliation, Afraid, Rape, and Kick questionnair e Answer Date Recorded Within the last year, have y ou been afraid of your partner or ex-partner? No 06/24/2025 Within the last year, have y ou been humiliated or emotionally abused in other ways by your partner or ex-partner? No Within the last year, have y ou been kicked, hit, slapped, or otherwise physically hurt by your partner or ex-partner? No 06/24/2025 Within the last year, have y ou been raped or forced to have any kind of sexual activity by your partner or ex-partner? No 06/24/2025 Social Connection and Isolation Panel Answer Date Recorded In a typical week, how many times do you talk on the phone with family, friends, or neighbors? Twice a week 06/24/2025 How often do you get togethe r with friends or relatives? More than three times a week 06/24/2025 How often do you attend chur ch or jewish services? Never 06/24/2025 Do you belong to any clubs o r organizations such as restoration groups, unions, fraternal or athletic groups, or school groups? No 06/24/2025 How often do you attend meet ings of the clubs or organizations you belong to? Never 06/24/2025 Are you , , di vorced, , never , or living with a partner? 06/24/2025 AUDIT-C Answer Date Recorded Q1: How often do you have a drink containing alcohol? Never 06/24/2025 Q2: How many drinks containi ng alcohol do you have on a typical day when you are drinking? Patient does not drink Q3: How often do you have si x or more drinks on one occasion? Never 06/24/2025 Overall Financial Resource Strain (CARDIA) Answe r Date Recorded How hard is it for you to pa y for the very basics like food, housing, medical care, and heating? Not hard at all 06/24/2025 [facility] [place] [facility] Occupat ional [facility] - Occupational Stress Questionnaire Answer Date Recorded Do you feel stress - tense, restless, nervous, or anxious, or unable to sleep at night because your mind is troubled all the time - these days? To some extent 06/24/2025 Exercise Vital Sign Answer Date Recorde d On average, how many days pe r week do you engage in moderate to strenuous exercise (like a brisk walk)? 5 days 06/24/2025 On average, how many minutes do you engage in exercise at this level? 40 min 06/24/2025 Hunger Vital Sign Answer Date Recorded Within the past 12 months, y ou worried that your food would run out before you got the money to buy more. Never true 06/24/20 25 Within the past 12 months, t he food you bought just didn't last and you didn't have money to get more. Never true 06/24/2025 PRAPARE - Transportation Answer Date Re corded In the past 12 months, has l ack of transportation kept you from medical appointments or from getting medications? No 05/2025 In the past 12 months, has l ack of transportation kept you from meetings, work, or from getting things needed for daily living? No 06/24/2025 Housing Stability Vital Sign Answer Ben e Recorded In the last 12 months, was t here a time when you were not able to pay the mortgage or rent on time? No 06/24/2025 In the past 12 months, how m any times have you moved where you were living? 0 06/24/2025 At any time in the past 12 m [address] [place], were you homeless or living in a fdc (including now)? No 06/24/2025 Utilities Answer Date Recorded In the past 12 months has th e fl3ur, gas, oil, or water company threatened to shut off services in your home? No 06/24/2025 Comments No Sex and Gender Information Value Date Recorded Sex Assigned at Not on file Legal Sex Female 8:24 PM EDT Gender Identity Not on file Sexual Orientation Not on file documented as of this encounter Last Filed Vital Signs Vital Sign Reading Time Taken Comments Blood Pressure 127/87 06/24/2025 9:01 AM EDT Pulse 70 06/24/2025 9:01 AM EDT Temperature 36.7 C (98.1 F) 06/24/2025 9:01 AM EDT Respiratory Rate 18 06/24/2025 9:01 AM EDT Oxygen Saturation 95% 06/24/2025 9:01 AM EDT Inhaled Oxygen Concentration - - Weight 92.3 kg (203 lb 7.8 oz) 06/24/2025 9:01 A M EDT Height 167.6 cm (5' 6 ) 06/24/2025 9:01 AM EDT Body Mass Index 32.84 06/24/2025 9:01 AM EDT documented in this encounter Functional Status * AUDIT-C Score Answer Date of Assessment Author 0 06/24/2025 8:47 AM EDT Rob Conroy * Question Answer Date of Assessment Author Q1: How often do you have a drink containing alcohol? Never 06/24/2025 8:47 AM EDT Rob Conroy Q2: How many drinks containing alcohol do you have on a typical day when you are drinking? Patient does not drink 06/24/2025 8:47 AM EDT Rob Conroy Q3: How often do you have six or more drinks on one occasion? Never 06/24/2025 8:47 AM EDT Rob Conroy documented as of this encounter Miscellaneous Notes * Assessment & Plan Note - Sarah Landin - 06/24/2025 9:00 AM EDTAssociated Problem(s): Primary hyperparathyroidism ([facility]) * Addendum Note - Sindhu Torres MD - 06/24/2025 9:00 AM EDTAddended by: SINDHU TORRES on: 06/28/2025 03:17 PM Modules accepted: Orders * Progress Notes - Sarah Landin - 06/24/2025 9:00 AM EDT Dear Randy Osuna MD We had the pleasure of seeing your 70 y.o. patient Bernice Cooney in consultation for primary hyperparathyroidism. SUBJECTIVE The parathyroid problem was first noted when high calcium was noted on routine labs (10.7 in 04/2023) Prior to this visit, the patient has undergone Sestamibi - 11/19/24; : No enlarged hypercellular parathyroid gland identified in neck or mediastinum. DEXA - 01/2024; T score -2.2 in LFN The patient is currently taking bisphosphonates (Alendronate 35mg weekly). Labs reveal: total calcium 10.6, ionized calcium 5.7, PTH 119, GFR 88.6, creatinine 0.73, 25-hydroxy vitamin D 51.2, 24-hr urine calcium 147, phosphorus 3.5, and magnesium 1.7. The patient is currently experiencing bone/joint pain, memory loss, and muscle weakness, but deniesfatigue, brain fog, personality changes, depression, constipation, dyspepsia/abdominal pain, weightloss, insomnia, nausea, vomiting, voice change, neck mass, and dysphagia. The patient has a personal history of osteopenia (DXA 02/08), but denies pathologic fracture, kidneystones, thyroid disease, radiation to the neck, and history of cancer. Her family history of endocrine disease includes no endocrine disease. Past Medical History[1] Surgical History[2] Family History[3] Social History[4] Allergies[5] Current Medications[6] Review of Systems Constitutional: negative Eyes: negative Ear, Nose, Mouth & Throat: negative Cardiovascular: negative Respiratory: negative Gastrointestinal: negative Urinary: negative Musculoskeletal: bone pain, joint pain, and muscle weakness Skin: negative Neurological: negative Psychiatric: memory problems Endocrine: negative Hematologic & Lymphatic: negative Allergic/Immunologic: negative OBJECTIVE Blood pressure 127/87, pulse 70, temperature 36.7 ??C (98.1 ??F), temperature source Oral, resp. rate 18, height 1.676 m (5' 6 ), weight 92.3 kg (203 lb 7.8 oz), SpO2 95%. Physical Exam Constitutional: No acute distress. Well appearing. Well nourished. Voice sounds normal during routine speech. Eyes: Pupils equal and round. Extraocular movements intact. No icterus. No exophthalmos. Ear, Nose, Mouth & Throat: Moist mucous membranes. Hard of hearing Neck: Neck was supple, symmetric, trachea midline. No lymphadenopathy. No thyromegaly. No palpable nodules. Pulmonary: Normal respiratory effort. Chest symmetrical. Cardiovascular: No extremity edema. No JVD. Appears well perfused. Abdomen: Abdomen non-tender. No masses. Musculoskeletal: Gait and station were normal. Digits and nails were normal without clubbing or cyanosis. Stability was normal. Skin: No rashes or ulcers. Normal turgor. Psychiatric: Alert and orientated to person, place and time. Mood and affect were normal. Procedures: Procedure: In-Office Ultrasound Performed by: Nato Mejias MD Date of procedure: 06/24/25 Sonographic images are permanently stored and available in the [facility] PACS system. Indication: primary hyperparathyroidism Prior thyroid surgery: None Surgeon-performed real-time high-frequency sonographic imaging was performed in both the transverseand longitudinal planes of the entire thyroid, parathyroid tissues, central neck lymph nodes, and lateral neck lymph nodes. Measurements are expressed as longitudinal (sagittal) x width (transverse) x depth (AP) unless otherwise noted. Thyroid gland echotexture is mildly heterogeneous. Right thyroid lobe is normal in size measuring 4.7 x 1.7 x 1.9 cm. Left thyroid lobe is normal in size measuring 3.2 x 1.2 x 1.6 cm. Isthmus measures 0.32 cm with left sided pyramidal lobe. Nodule 1: 0.7 x 0.6 x 0.5 cm right middle cystic There are 4 cystic sub-cm nodules in the right thyroid lobe. There are a few sub-cm cystic nodules in the left thyroid lobe. Candidates for parathyroid adenomas are not visualized. High riding innominate artery. Central lymph nodes (level ): Unremarkable Lateral lymph nodes (levels II-V): Unremarkable THYROID ULTRASOUND IMPRESSION: No parathyroid candidates. ASSESSMENT/PLAN Assessment & Plan Primary hyperparathyroidism (CMS/HCC) Ms. Bernice Cooney is a 70 y.o. female with Primary hyperparathyroidism (CMS/HCC) [E21.0] in the setting of osteopenia and significantly elevated calcium >1 above normal. We have reviewed outside records and labs. Laboratory evaluation confirms primary hyperparathyroidism. We will obtain the following labs: no additional labs needed. We have personally viewed the parathyroid nuclear images which reveal no localization. We proceeded with in-office surgeon-performed ultrasound which revealedR thyroid cysts and L sub centimeter thyroid cysts. Parathyroid's could not be localized. FNA was not indicated. Additional imaging is not needed for localization. We spent some time discussing the diagnosis and evaluation of parathyroid disease, including the indications for surgery. At this time, the patient meets criteria for and will benefit from parathyroidectomy. We discussed the risks and benefits of parathyroidectomy in detail including the risk of injury to the nerves to the vocal cords resulting in temporary or permanent voice changes, inability to find the abnormal parathyroid(s) resulting in persistent elevated calcium, possible permanent low calcium requiring lifelong calcium/vitamin D replacement, and the very small risk of infection and postoperative bleeding that could require a second surgery. We will use intraoperative nerve monitoring, intraoperative parathyroid hormone monitoring and may use intraoperative gamma probe localization. The patient voiced understanding and signed informed consent. Surgical risk will be increased due to the patient's medical problems (HTN and DM). The patient will need to undergo additional preoperative risk stratification by the anesthesia preadmissions testing clinic. Comorbid conditions that impact our treatment planning include: HTN and DM. We will plan to see the patient back in 2 week(s) after surgery. It was a pleasure meeting Ms. Cooney. We appreciate the consultation. Please feel free to call with questions or concerns. Sarah Landin, MS3 [1] Past Medical History: Diagnosis Date Personal [...] Past Surgical History: Procedure Laterality Date SECTION, CLASSIC SECTION, LOW TRANSVERSE N/A Section from [facility] GALLBLADDER SURGERY N/A Gallbladder Surgery from [facility] HYSTERECTOMY N/A Hysterectomy from [facility] [3] Family History Problem Relation Name Age of Onset Kidney disease Mother Pneumonia Mother Pneumonia Father Conversions - Other Father Patient's father is Conversions - Other Mother Patient's mother is [4] Social History Tobacco Use Smoking status: Never Smokeless tobacco: Never Vaping Use Vaping status: Never Used Passive vaping exposure: Yes Substance Use Topics Alcohol use: Never Drug use: Never [5] No Known Allergies [6] Current Outpatient Medications: alendronate (Fosamax) 35 MG [...] 3 times a day., Disp: , Rfl: Multiple Vitamin (multivitamin) tablet, Take 1 tablet by mouth daily., Disp: , Rfl: Premarin 0.625 MG tablet, TAKE 1 TABLET 1 TIME EACH DAY, Disp: , Rfl: methotrexate 2.5 MG tablet, 8 tablets (20 mg total). (Patient not taking: Reported on 06/24/2025), Disp: , Rfl: traMADol (Ultram) 50 MG tablet, , Disp: , Rfl: Cosigned by Nato Mejias MD at 06/24/2025 11:39 AM EDT Associated attestation - Nato Mejias MD - 06/24/2025 11:39 AM EDT I saw and evaluated the patient with the medical/RD LAB TECHNICIAN/PA student. I discussed the case with the medical/RD LAB TECHNICIAN/PA student and agree with the findings and plan as documented. I personally performed the Examand Medical Decision Making. I performed the entirety of the procedure(s). 70F with HTN (lisinopril), RA, DM, obesity (BMI 37->33), referred with primary hyperparathyroidism. Subjectively symptomatic with brain fog, muscle weakness. Labs 02/01/25: PTH 120, Ca 11.1, Cr 0.74, Mg 1.9, Alb 4.4, AlkPhos 73, iCal 5.8, vitD 51.2, TSH 1.69. Labs 05/05/25: PTH 119, Ca 10.6, Cr 0.73, Mg 1.7, Alb 4.1, AlkPhos 71, iCal 5.7, vitD 51.1. Labs 05/07/25: 24h urine calcium 147 with good collection 3200cc. DXA 01/21/24: osteopenia T-2.2. NM SPECT/CT Parathyroid 11/19/24 reports no parathyroid identified. 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 US today with thyroid cystis without parathyroid candidates. We discussed parathyroid disease and parathyroidectomy, including risks and expected course. Given a biochemical diagnosis of primary hyperparathyroidism, with subjective symptoms and bone loss, recommend four gland exploration for likely subtotal parathyroidectomy. Discussed alternative to trend labs and bone density. Parathyroidectomy, four gland exploration PAT Outpatient after 4 hours observation in recovery. Thank you, Nato Mejias MD, FACS prosthodontist/educator General, Endocrine & Metabolic Surgery documented in this encounter Plan of Treatment Upcoming Encounters Date Type Department Care Team (Late st Contact Info) Description 09/08/2025 11:20 AM EDT Office Visit [facility] [address], [address] [place] [address] Randy Osuna MD [address] [facility] [address] [place] [id number] documented as of this encounter Visit Diagnoses Diagnosis Primary hyperparathyroidism (CMS/[facility])- Primary Primary hyperparathyroidism documented in this encounter Additional Health Concerns Assessment Noted Time A fall risk assessment has been complete d for the patient 06/24/2025 9:00 AM EDT A Body Mass Index follow-up plan has been documented for the patient 06/24/2025 10:04 AM EDT documented as of this encounter Care Teams Pencil Inspector Relationship Specialty Start Date End Date Piotr Eason MD PCP - General Family Medicine 05/05/25 documented as of this encounter
--- OUTSIDE RECORDS SUMMARY | 2025-07-02 14:00 | XMS_ITS | Encounter Summary ---
Author Organization Healthcare Address [address] [place] [address] Care Team Providers Care Quilting Supervisor Name Role Phone Piotr Eason MD Primary Care Provider Alma vailable Encounter Details Date Type Department Care Team ([facility] st Contact Info) Description 07/02/2025 2:00 PM EDT Pre-Admission Testing [facility] Anesthesia [address] [place] [address] Social History Tobacco Use Types Packs/Day Years Used Date Smoking Tobacco: Never Passive Smoke Exposure: Never Smokeless Tobacco: Never Tobacco Cessation:Counseling Given: [...] often do you attend chur ch or alevism services? Never 06/24/2025 Do you belong to any clubs o r organizations such as jehovah's witness groups, unions, fraternal or athletic groups, or [...] and heating? Not hard at all 06/24/2025 [facility] - Occupational Stress Questionnaire Answer Date Recorded [...] any time in the past 12 m [facility], were you homeless or living in a residential (including now)? No 06/24/2025 Utilities Answer Date Recorded In the past 12 months has th e [employer], gas, oil, or water [employer] threatened to shut off services in your home? No 06/24/2025 Comments No Sex and Gender Information Value Date Recorded Sex Assigned at Not on file Legal Sex Female 8:24 PM EDT Gender Identity Not on file Sexual Orientation Not on file documented as of this encounter Last Filed Vital Signs Vital Sign Reading Time Taken Comments Blood Pressure - - Pulse - - Temperature - - Respiratory Rate - - Oxygen Saturation - - Inhaled Oxygen Concentration - - Weight 94.8 kg (209 lb) 07/02/2025 12:59 PM EDT Height - - Body Mass Index 33.73 06/24/2025 9:01 AM EDT documented in this encounter Functional Status * Calculated C-SSRS Risk Score (Lifetime/Recent) Answer Date of Assessment Author No Risk Indicated 07/05/2025 6:21 AM EDT Gaby Ortiz RN * Question Answer Date of Assessment Author 1. Wish to be (Past 1 Month) No 025 6:21 AM EDT Gaby Ortiz RN 2. Non-Specific Active Suici leticia Thoughts (Past 1 Month) No 07/05/2025 6:21 AM EDT Jorge Ortiz RN 6. Suicidal Behavior (Lifetime) No 6:21 AM EDT Gaby Ortiz RN documented as of this encounter Miscellaneous Notes * PAT Evaluation Note - Janny Ramirez APRN - 07/02/2025 2:00 PM EDT HPI Bernice Cooney is a 70 y.o. female who presents with Pre-op Diagnosis * Primary hyperparathyroidism (CMS/HCC) [E21.0] now scheduled for PARATHYROIDECTOMY (N/A). with Nato Mejias MD on 07/05/2025 At [facility]. Past Medical History[1] Family History[2] Social History[3] SURGICAL HISTORY: Surgical History[4] Allergies[5] MEDICATIONS: Current Medications[6] 07/02/2025 12:59 PM Vitals Weight (kg) 94.802 kg BMI 33.73 kg/m2 BSA (m2) 2.1 m2 Lab Results Component Value Date WBC 9.60 09/18/2023 HGB 14.9 09/18/2023 HCT 45.5 (H) 09/18/2023 MCV 96 09/18/2023 PLT 331 09/18/2023 Lab Results Component Value Date GLUCOSE 189 (H) 05/05/2025 CALCIUM 10.6 (H) 05/05/2025 NA 138 05/05/2025 K 4.5 05/05/2025 CO2 23 05/05/2025 CL 101 05/05/2025 BUN 10 05/05/2025 CREATININE 0.73 05/05/2025 ROS Anesthesia: Date of last anesthetic: 2020- [facility] with hernia repair. No problems with GA. history of previous anesthesia. Does not have a history of anesthetic complications, malignant hyperthermia, motion sickness, obstructive sleep apnea and PONV. Anesthesia ROS additional comments: Can lay flat on back or side. Able to move head/neck without trouble, and able to open mouth wide, per pt. Via phone. Cardiovascular: hyperlipidemia. Does not have angina, atrial fibrillation, CAD, CHF, dyspnea, dysrhythmias, murmur,past KS or syncope. hypertension: is well controlled. Exercise tolerance is 2 flights of stairs. Does not have chest pain. Respiratory: Negative respiratory ROS.Does not have home oxygen. Patient has no dyspnea.no asthma: no COPD: Has not had an upper respiratory infection in last 30 days. Has not had COVID in the last 30 days. HEENT: missing teeth (has crown on top front teeth.).Does not have difficulty swallowing, chipped teeth orloose teeth.Does not have temporomandibular joint syndrome. Neurological: Negative neuro ROS. no seizures: Did not have a cerebrovascular accident.Does not have TIA. Musculoskeletal: Does not have arthritis or multiple sclerosis. [facility] additional comments: Hx osteoporosis. Autoimmune: Does not have lupus. Integumentary: Negative skin ROS. Gastrointestinal: GERD: well controlled.Does not have end stage liver disease or hepatitis. obese. Genitourinary: Negative ROS. Does not have renal disease. Hematological/Lymphatic: negative hematology/oncology ROS. History of no DVT. History of no pulmonary embolism. no history of chemotherapy no history of radiation Does not have AIDS, HIV, MRSA or tuberculosis. Endocrine/Metabolic: diabetes mellitus type 2.well controlled. 7.0 Does not have thyroid disorder. Does not have gout. Endo/Met additional comments: Primary hyperparathyroidism. Lab Results Component Value Date WBC 9.60 09/18/2023 HGB 14.9 09/18/2023 HCT 45.5 (H) 09/18/2023 MCV 96 09/18/2023 PLT 331 09/18/2023 Lab Results Component Value Date GLUCOSE 189 (H) 05/05/2025 BUN 10 05/05/2025 CREATININE 0.73 05/05/2025 BCR 14 05/05/2025 NA 138 05/05/2025 K 4.5 05/05/2025 CL 101 05/05/2025 CO2 23 05/05/2025 ALBUMIN 4.1 05/05/2025 ALKPHOS 71 05/05/2025 BILITOT 0.2 05/05/2025 No results found for: HGBA1C No results found for: INR , PROTIME Visit Vitals Wt 94.8 kg (209 lb) BMI 33.73 kg/m?? OB Status Hysterectomy Smoking Status Never BSA 2.1 m?? Physical Exam Anesthesia Plan ASA 3 Anesthesia technique(s) discussed with the patient/family: general Comment: DESMOND phone screen with pt. And pt.'s . 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 [2] Family History Problem Relation Name Age of Onset Kidney disease Mother Pneumonia Mother Conversions - Other Mother Patient's mother is Pneumonia Father Conversions - Other Father Patient's father is Malig Hyperthermia Neg Hx Anesthesia problems Neg Hx [3] Social History Tobacco Use Smoking status: Never Passive exposure: Never Smokeless tobacco: Never Vaping Use Vaping status: Never Used Passive vaping exposure: Yes Substance Use Topics Alcohol use: Never Drug use: Never [4] Past Surgical History: Procedure Laterality Date SECTION, CLASSIC SECTION, LOW TRANSVERSE N/A Section from [facility] GALLBLADDER SURGERY N/A Gallbladder Surgery from [facility] HERNIA REPAIR 2020 HYSTERECTOMY N/A Hysterectomy from [facility] [5] No Known Allergies [6] Current Outpatient Medications: alendronate, Take 1 tablet by mouth every 7 days. Takes weekly on Fridays. atorvastatin, Take 1 tablet by mouth nightly. Dilt-XR, Take 1 capsule by mouth nightly. folic acid, TAKE 1 TABLET 1 TIME EACH DAY lansoprazole, TAKE 1 CAPSULE 1 TIME EACH DAY lisinopril, Take 1 tablet by mouth nightly. meloxicam, TAKE 1 TABLET 1 TIME EACH DAY FOR PAIN metFORMIN, Take 2 tablets by mouth 2 times a day with meals. multivitamin, Take 1 tablet by mouth daily. Premarin, TAKE 1 TABLET 1 TIME EACH DAY methotrexate, 8 tablets (20 mg total). (Patient not taking: Reported on 06/24/2025) traMADol, * Preprocedure Instructions - Janny Ramirez APRN - 07/02/2025 2:00 PM EDT Home Medication Instructions Current Medications Medication Instructions alendronate (Fosamax) 35 MG tablet Hold 7 days before surgery atorvastatin (Lipitor) 20 MG tablet Take night before surgery Dilt-XR 240 MG 24 hr capsule Take night before surgery folic acid (Folvite) 1 MG tablet Hold 7 days before surgery lansoprazole (Prevacid) [address] capsule Take morning of surgery lisinopril 20 MG tablet Take night before surgery. Take at 6 pm evening before surgery meloxicam (Mobic) 15 MG tablet Hold 3-5 days before surgery metFORMIN (Glucophage) 500 MG tablet Hold 48 hours before surgery Multiple Vitamin (multivitamin) tablet Hold 7 days before surgery Premarin 0.625 MG tablet Hold day of surgery General Preoperative Instructions You will be called the business day before surgery with your arrival time Do not eat anything after midnight except water with your medications unless other instructions aregiven. Can drink clear liquids (water, Gatorade, non- carbonated sports drinks, or apple juice) up until 2 hours before arriving at the hospital. No alcohol or smoking prior to surgery Arrive on time to avoid delays Parking/Registration procedure explained You MUST have a responsible adult available for transport to and from hospital Visitation policy for the day of surgery reviewed Bring insurance card, photo ID, along with power of employment attorney, guardianship or advanced directives if applicable Do not bring money, jewelry or other valuables Hibiclens bathing instructions reviewed if applicable Notify surgeon of fever, illness, any changes or if you decide not to have surgery Pediatric patients under 12 years of age (If applicable) No solid food or milk after midnight Formula 6 hours prior to arrival for surgery Breast milk 4 hours prior to arrival surgery Clear liquids 2 hours prior to arrival for surgery Diabetes Instructions (If applicable) Take diabetes medication as instructed You may have up to 4 ounces of apple juice 2 hours prior to arrival for surgery for low glucose documented in this encounter Plan of Treatment Upcoming Encounters Date Type Department Care Team (Late st Contact Info) Description 09/08/2025 11:20 AM EDT Office Visit [facility] [address] [place] [address] Randy Osuna MD [address] [facility] [address] [place] [address] documented as of this encounter Visit Diagnoses Not on filedocumented in this encounter Additional Health Concerns Assessment Noted Time A fall risk assessment has been complete d for the patient 06/24/2025 9:00 AM EDT A Body Mass Index follow-up plan has been documented for the patient 06/24/2025 10:04 AM EDT documented as of this encounter Care Teams Quilting Supervisor Relationship Specialty Start Date End Date Piotr Eason MD PCP - General Family Medicine 05/05/25 documented as of this encounter
--- OUTSIDE RECORDS SUMMARY | 2025-07-05 05:22 | XMS_ITS | Encounter Summary ---
Author Organization Healthcare Address [address] [place] [address] Care Team Providers Care Sprinkling System Installer Name Role Phone Piotr Eason MD Primary Care Provider Alma vailable Reason for Visit * Auth/Cert (Routine) Specialty Diagnoses / Procedures Referred By Contac t Referred To Contact Diagnoses Primary hyperparathyroidism (CMS/HCC) Primary hyperparathyroidism (CMS/HCC) [E21.0] Procedures SC EXPLORE PARATHYROID GLANDS SC VNPNXR 3 YEARS/> PHYS/QHP SKILL PARATHYROIDECTOMY Nato Mejias MD [address] [employer] [address] [address] Phone: tel: fax: [facility] Operating Room [address] [place] [address] Phone: tel: Referral ID Status Reason Start Date Expiration Date Visits Re quested Visits Authorized [id number] 1 1 Encounter Details Date Type Department Care Team (Latest Contact Info) Description 07/05/2025 5:22 AM EDT - 07/05/2025 1:30 PM EDT Hospital Encounter [facility] Operating Room [address] [place] [address] Nato Mejias MD [address] [employer] [address] [place] [phone] Primary hyperparathyroidism (CMS/HCC) Discharge Disposition: Home or Self Care Social History Tobacco Use Types Packs/Day Years Used Date Smoking Tobacco: Never Passive Smoke Exposure: Never Smokeless Tobacco: Never Alcohol Use Standard [...] 06/24/2025 How often do you attend chur or presybeterian services? Never 06/24/2025 Do you belong to any clubs o r organizations such as restorationism groups, unions, fraternal or athletic groups, or [...] and heating? Not hard at all 06/24/2025 [facility] - Occupational Stress Questionnaire Answer [...] any time in the past 12 m [facility], were you homeless or living in a group home (including now)? No 06/24/2025 Utilities Answer Date Recorded In the past 12 months has th e [employer], gas, oil, or water [employer] threatened to shut off services in your home? No 06/24/2025 Comments No Sex and Gender Information Value Date Recorded Sex Assigned at Not on file Legal Sex Female 8:24 PM EDT Gender Identity Not on file Sexual Orientation Not on file documented as of this encounter Last Filed Vital Signs Vital Sign Reading Time Taken Comments Blood Pressure 116/67 07/05/2025 12:00 PM EDT Pulse 69 07/05/2025 12:00 PM EDT Temperature 36.5 C (97.7 F) 07/05/2025 11:30 AM EDT Respiratory Rate 21 07/05/2025 12:00 PM EDT Oxygen Saturation 93% 07/05/2025 12:00 PM EDT Inhaled Oxygen Concentration - - Weight 92.3 kg (203 lb 7.8 oz) 07/05/2025 6:20 A M EDT Height 167.6 cm (5' 6 ) 07/05/2025 6:20 AM EDT Body Mass Index 32.84 07/05/2025 6:20 AM EDT documented in this encounter Functional [...] Ortiz RN documented as of this encounter Discharge Instructions * Discharge Instructions* Minerva Harris MD - 07/05/2025 9:47 AM EDT Thyroid/Parathyroid Discharge/Aftercare Instructions Your operation was: Parathyroidectomy For a diagnosis of: Primary Hyperparathyroidism Everything went smoothly with your operation. There were no problems or unexpected findings. I havediscussed the details of your operation with your family and your referring physician. Please review the following discharge instructions. They will answer many of the common questions people have after surgery. Activity Resume regular activity gradually as tolerated. Walking outside, going up and down stairs, and performing light exercise are all encouraged. Beginning 2 days after surgery, gentle neck stretching in all directions will help you to avoid neck stiffness and soreness, which are common after this type of operation. Avoid heavy lifting (>10 pounds), strenuous exercise, and straining for 5 days following surgery. Avoid soaking and swimming for 2 weeks. If you are feeling well and are not taking prescription pain medication, you may drive as soon as you can turn your head from side to side without pain. Returning to work In general, you can return to work when you feel ready, usually within one week. If you have a physically strenuous job, the period may be longer, in which case you may wish to request limited dutieswhile you are recovering. We are happy to provide whatever documentation is required for you to take the amount of time off that you feel is necessary, up to two weeks. Medications In general, you should continue the medications that you were taking before surgery. Aspirin and related drugs may be resumed 3 days after your operation. If you are taking blood thinners for a heartcondition, blood clots, or stroke, your surgeon will have additional instructions for you. These are your prescription medications for after surgery: Cholecalciferol 2000U by mouth daily Calcium carbonate (regular strength Tums), 2000mg tabs by mouth two times daily If you develop numbness, tingling, or cramping around your mouth or in your fingers and toes, this may be due to low blood calcium. Should you experience these symptoms, take 2-4 grams of calcium carbonate (4-8 regular strength Tums tablets) every 4 hours. If your symptoms are not relieved, please contact us using the numbers below. You may need to have your blood calcium level checked, and you may need to be started on active Vitamin D (calcitriol). Pain control Pain medication should be taken only as needed for the couple of days following surgery. Acetaminophen (Tylenol) can be started immediately after surgery. Ibuprofen (Advil) can be started the day following surgery. Alternate taking acetaminophen (Tylenol) every 8 hours and ibuprofen (Advil) every 8 hours as needed for pain such that you are taking something every 4 hours as needed for pain. Do not exceed the dosages as outlined on the bottles. Take ibuprofen with food to avoid stomach irritation. Some people experience nausea or vomiting from certain pain medications. If this happens, make sureyou are taking with food in your stomach. If necessary, you may call us to have your pain medication changed. Constipation is a common side effect of prescription pain medications - please see below for ways to avoid constipation. Care of your surgical wound Only absorbable sutures (stitches) have been used to close your wound. No sutures need to be removed. During the first 2-3 weeks after surgery, you may feel a small, firm bump under your wound. This is a normal part of the healing process and no cause for concern. Adhesive bandages (Steristrips) have been placed over the wound to promote healing and minimize scar formation. Please leave the Steristrips on until they fall off on their own or if by the 2-week prince, at which time you can remove the Steristrips on your own. We recommend avoiding direct sun exposure of your scar for at least 6 months, as this may cause your scar to darken. After the steristrips are removed, if you are out in direct sun and the scar is not covered by clothing, please generously apply sunscreen. Though we close all incisions with the same meticulous technique, there is some variability in the final scar result because each individual skin type heals a little differently. Diet and bowel movements Resume a normal balanced diet as tolerated. There are no restrictions of what you eat or drink but swallowing may be painful the first two days, which will improve. Soft foods may be better toleratedduring this time. It is important to drink plenty of fluids (8-10 glasses of water per day). To prevent constipation, add some high fiber foods to your diet, such as bran cereals, wheat germ, dried fruits, and fresh vegetables. If you still experience constipation, you may try an ofmn-siu-egkapud mild stool softener or laxative such as milk of magnesia. Bathing If you are feeling steady on your feet without hangover from the anesthesia, you may shower the dayafter surgery. Do not rub the wound. Stand with your back to the shower head, avoiding direct waterspray to the front of your neck for the first few days. A little warm water will not hurt your incision, but the Steristrips may become sticky. Gently pat the area dry. Do not submerge your wound in water (bathe, swimming, etc.) for 2 weeks after surgery. Your pathology results Pathology results (microscopic analysis of tissues removed at surgery) take at least 5 business days to become available. If there are any unexpected findings, you will receive a call from your surgeon immediately. If the findings are routine, they will be discussed at your first follow up appointment. Things to watch out for Call us if you notice any of the following: Increasing pain, drainage, or redness around your surgical wound Temperature over 101??F (38.5??C) Neck swelling or bruising Numbness or tingling of your fingers, toes, or lips (see Medications above) How to reach us We are available to you at all times. During normal business hours, we can be reached at After hours, please call the hospital page metal shaping machine operator at and ask for the ???Endocrine surgery resident naval gunfire liaison officer. You may also request that your surgeon be paged directly. documented in this encounter Medications at Time of Discharge alendronate (Fosamax) 35 MG tablet Take 1 tablet by mouth every 7 days. Takes weekly on Fridays. 06/24/2023 atorvastatin (Lipitor) 20 MG tablet Take 1 tablet by mouth nightly. 05/29/2023 cholecalciferol (Vitamin D-3) 50 MCG (1999) capsule Take 1 capsule by mouth daily. 30 capsule 1 07/05/2025 Dilt-XR 240 MG 24 hr capsule Take 1 capsule by mouth nightly. 03/22/2023 folic acid (Folvite) 1 MG tablet TAKE 1 TABLET 1 TIME EACH DAY 05/29/2023 lansoprazole (Prevacid) [address] capsule TAKE 1 CAPSULE 1 TIME EACH DAY 06/04/2023 lisinopril 20 MG tablet Take 1 tablet by mouth nightly. 06/04/2023 meloxicam (Mobic) 15 MG tablet TAKE 1 TABLET 1 TIME EACH DAY FOR PAIN 08/08/2023 metFORMIN (Glucophage) 500 MG tablet Take 2 tablets by mouth 2 times a day with meals. methotrexate 2.5 MG tablet 8 tablets (20 mg total). 07/11/2017 Multiple Vitamin (multivitamin) tablet Take 1 tablet by mouth daily. Premarin 0.625 MG tablet TAKE 1 TABLET 1 TIME EACH DAY 08/08/2023 traMADol (Ultram) 50 MG tablet 08/13/2023 acetaminophen (Tylenol) 500 MG tablet Take 2 tablets by mouth every 6 hours as needed for headaches for up to 13 days. 100 tablet 07/05/2025 5 calcium carbonate (Tums Ultra) 1000 MG chewable tablet Chew 2 tablets 2 times a day. 120 tablet 07/05/2025 09/17/202 5 ibuprofen 600 MG tablet Take 1 tablet by mouth every 6 hours as needed for mild pain for up to 10 days. 40 tablet 07/06/2025 5 documented as of this encounter Miscellaneous Notes * Anesthesia PACU Signout - Antonio Cespdees MD - 07/05/2025 1:18 PM EDT Patient: Bernice Cooney Anesthesia Type: general Vitals Value Taken Time BP 111/60 07/05/25 11:30 Temp 36.5 ??C (97.7 ??F) 07/05/25 11:30 Pulse 70 07/05/25 11:34 Resp 15 07/05/25 11:34 SpO2 94 % 07/05/25 11:34 Vitals shown include unfiled device data. Anesthesia PACU Signout Patient location during evaluation: PACU Patient participation: complete - patient participated Level of consciousness: baseline and awake Pain management: adequate (pain score 0-3) Airway patency: natural airway Hydration status: acceptable PONV: none Cardiovascular status: acceptable and hemodynamically stable Respiratory status: acceptable, spontaneous ventilation, unassisted and nonlabored ventilation Discharge Disposition: home Cosigned by Boogie Herrera MD at 07/05/2025 1:22 PM EDT Associated attestation - Boogie Herrera MD - 07/05/2025 1:22 PM EDT Signature only. * Perioperative Nursing Note - Yuly Gaona RN - 07/05/2025 1:16 PM EDT Discharge instructions given to patient and . Scripts in hand. * Perioperative Nursing Note - Yuly Gaona RN - 07/05/2025 10:55 AM EDT Conferring with anesthesia regarding current bp. * [facility] - Yuly Gaona RN - 07/05/2025 9:31 AM EDT Images from the original note were not included. 113 Post-Anesthesia and Postoperative Instructions () In order to have a fast and comfortable recovery at home, please follow these instructions. ? A responsible adult must be present for you to be discharged. ? Do not drive, drink alcohol or make important decisions for 24 hours after surgery. ? You may feel like resting more than normal after surgery. Start slowly and be more active each day. ? Start slowly with liquids like 7-up, tea, apple juice or broth. Eat more as your stomach allows. If you feel sick to your stomach, go back to drinking liquids. ? You may feel some discomfort after surgery. Take the medicine as directed by your caregiver. If your medicine makes you drowsy, do not drink alcohol, drive or operate heavy equipment for at least 24 hours after use. ? If you are taking antibiotics, take them until they are all gone even if you feel well. ? Cover your wound or bandage when showering, unless your doctor tells you differently. ? A small amount of drainage on your bandage is normal. Do not remove your bandage unless your doctor tells you to. Please keep track of information about the medicines you take. Follow these tips to manage your medicines. ? Keep a list of all your medicines. Update the list when you start or stop taking a medicine. Write down changes in how you should take them. ? Carry your medicine list with you at all times. It will be needed if you have a health emergency . ? Give the list to your family doctor. Take the list to all your doctor visits. Call your doctor if you have any of the following ? Temperature higher than 101.5??F ? Chest pain or difficulty breathing ? Stomach sickness or throwing up that does not go away ? You cannot urinate by bedtime ? Pain is not helped by your medicine. ? Bandage becomes soaked with blood - Don't remove the bandage, reinforce only ? Swelling, redness, pain or pus from incision ? Questions or concerns about your surgery. In the event of an emergency, please go to the closest Emergency Room or call the Emergency Department at [phone]. Smoking and its health risks ? Smoking is the most preventable cause of illness and in the [place]. Cigarettes are filled with poison that goes into the lungs as you inhale. About 440,000 people every year from illnesses caused by smoking. People who smoke earlier than those who do not smoke. ? Heart and blood vessel disease, lung disease and ulcers are just some of the health problems thatmay be caused by smoking. Smoking also slows bone and wound healing and may slow your recovery fromsurgery. ? For help quitting smoking, call the [employer]'s Quitline toll free at or ask your doctor for help. Weight Management ? Weighing too much is not good for your health. Being overweight increases your risk of health conditions such as heart problems, high blood pressure, type 2 diabetes, and certain types of cancer. Being overweight can also increase your risk for osteoarthritis (ny-oro-qy-wsm-NJEI-pnm) (joint disease), sleep apnea (abnormal breathing at night) or other respiratory (breathing) problems. Being overweight may also cause a person to feel sad or be treated differently by others. ? The best way to lose weight is to eat fewer calories and get regular exercise. Eating more calories than you need will cause you to gain weight. Try to cut down your calories by 500 calories per day. For example, cut down on one soda (about 150 calories), a small bag of regular potato chips (about 150 calories) and one chocolate bar (about 250 calories). For most people, this change will resultin a slow weight loss of about one pound a week. Exercise (for example, walk, swim, or bicycle) forat least 30 minutes on most days of the week. You will be more likely to keep weight off if you make lifelong lifestyle changes. ? Aim for a slow, steady weight loss. Losing even a small amount of weight can lower your risk of health problems. Ask your dietitian, tube bender hand or doctor about a weight loss goal that is right for you. 10/29 * Op Note - Nato Mejias MD - 07/05/2025 7:56 AM EDT Operative Note Date: 07/05/25 Location: [facility] OR Name: Bernice Cooney, : 1955, Diagnoses: Pre-op Diagnosis Primary hyperparathyroidism (CMS/HCC) Post-op Diagnosis Primary hyperparathyroidism (CMS/HCC) Procedure(s): Parathyroidectomy Attending Surgeon(s): * Nato Mejias - Primary Bait Man(s): * Minerva Harris MD - Resident - Assisting Anesthesia: General ASA: III Blood Administration: Blood Product Administration History None Estimated Blood Loss: Minimal Drains: * None in log * Specimen: Specimens ID Source Frozen? 1 Neck No Description: Superficial neck fat. 2 Parathyroid Yes Description: Biopsy right superior parathyroid. 3 Parathyroid Yes Description: Right inferior parathyroid gland. 4 Parathyroid Yes Description: Left inferior parathyroid gland. 5 Neck No Description: Left neck fat. 6 Parathyroid Yes Description: Left superior parathyroid gland. A Blood, Venous Description: Excision PTH B Blood, Venous Description: 5 min PTH C Blood, Venous Description: 10 min PTH Findings: Inflamed thyroid gland. Four gland hyperplasia with dominant left superior parathyroid gland. Subtotal parathyroidectomy with well vascularized viable right superior parathyroid remnant. PTH dropped appropriately. Bilateral recurrent laryngeal nerves grossly intact with normal signal on stimulation of the vagus nerves at conclusion. Hemostatic at conclusion. Indications: Bernice Cooney is an 70 y.o. female who is having surgery for Primary hyperparathyroidism (CMS/HCC). She is subjectively symptomatic and has bone loss. Pre-operative localization studies were non-localizing. Consented for parathyroidectomy. Narrative: Intravenous antibiotics were administered with Ancef. Sequential compression devices were applied to the legs prior to the induction of anesthesia. After informed consent was obtained and an appropriate surgical time-out was performed, the patient was given a general anesthetic. The patient was carefully positioned, prepped, and draped. Bilateral superficial cervical plexus block was performed bythe surgeon using 10 cc of 0.25% Marcaine on each side. Intraoperative ultrasound was performed using a high-frequency linear array probe. The nerve monitoring equipment was set up and tested per protocol. We made a 4 cm low cervical incision and created subplatysmal flaps. We entered the visceral compartment by the strap muscles along the midline raphe. We turned our attention to the right side. The middle thyroid vein was ligated and the thyroid was rotated medially. Inspection of the right superior parathyroid gland territory revealed a pale, mildly enlarged but fairly normal fatty replaced gland in a normal location. A small shaving of parathyroid tissue was taken as a biopsy over a medium hemoclip without devascularizing the remaining parathyroid gland. Inspection of the right inferior parathyroid gland territory revealed a pale fatty replaced mildly enlarged gland in a normal location. The abnormal parathyroid in this location was dissected out circumferentially, taking care to avoid violation of the capsule. The vascular pedicle was clipped and the gland removed. The right vagal and recurrent laryngeal nerve monitoring findings are summarized as follows (V1 - vagal stimulation prior to thyroid mobilization, R1 - initial RLN stimulation, R2 - final RLN stimulation after dissection, V2 - final vagal stimulation after dissection): V1 signal present: Yes R1 signal present: Yes R2 signal present: Yes V2 signal present: Yes We turned our attention to the left side. The middle thyroid vein was ligated and the thyroid was rotated medially. Inspection of the left inferior parathyroid gland territory revealed a mildly enlarged gland in a normal location. The abnormal parathyroid in this location was dissected out circumfer entially, taking care to avoid violation of the capsule. The vascular pedicle was clipped and the gland removed. Inspection of the left superior parathyroid gland territory revealed a abnormal: enlarged and somewhat rounded gland in a normal location. The abnormal parathyroid in this location was dissected out circumferentially, taking care to avoid violation of the capsule. The vascular pedicle was clipped and the gland removed. The left vagal and recurrent laryngeal nerve monitoring findings are summarized as follows (V1 - vagal stimulation prior to thyroid mobilization, R1 - initial RLN stimulation, R2 - final RLN stimulation after dissection, V2 - final vagal stimulation after dissection): V1 signal present: Yes R1 signal present: Yes R2 signal present: Yes V2 signal present: Yes Immediately post resection of the target parathyroid gland as well as 5 and 10 minutes post excision, blood was drawn by me from the internal jugular vein using a 22 gauge needle and 5cc syringe. Thespecimens were sent for stat intraoperative PTH assay, which was interpreted by me. Intraoperative PTH monitoring was employed yielding the following results: Baseline (in preop)= 79; T0 (excision) = 21; T5 = 12; T10 = 10 Given the appropriate decrease in PTH levels, the operation was concluded. We carefully inspected the field for bleeding and achieved hemostasis by applying thrombin-soaked Gelfoam. When we were content that there was no further bleeding, we brought the muscular layer together. The skin and soft tissues were closed in 2 additional layers. Sponge, needle, and instrument countswere correct. There were NO signs of surgical site infection (SSI) present at the time of surgery (PATOS). Complications: None; patient tolerated the procedure well. Submitted by: Nato Mejias MD - 07/05/2025 * Perioperative Nursing Note - Dena Lima RN - 07/05/2025 7:30 AM EDT Patient's states he does not use text messaging. Will call patient's to update. * H&P - Minerva Harris MD - 07/05/2025 7:12 AM EDT Images from the original note were not included. Subjective Chief complaint Primary Hyperparathyroidism History Of Present Illness Bernice Cooney is a 70 y.o. female presenting with primary hyperparathyroidism in the setting of subjective symptoms including brain fog, muscle weakness, bone pain. Here for parathyroidectomy. Possible left superior and right superior adenomas. Medical/Surgical/Social/Family History I have reviewed and updated the patient history. Travel History Relevant International Travel History: Travel Screening Question Response Have you been in contact with someone who was sick? No / Unsure Do you have any of the following new or worsening symptoms? None of these Have you traveled internationally or domestically in the last month? No Travel History Travel since 06/04/25 No documented travel since 06/04/25 Relevant Domestic Travel History: N/A Immunizations Reviewed Allergies Patient has no known allergies. Medications Current Medications[1] Objective Review of Systems All other systems reviewed and are negative. Physical Exam Constitutional: General: She is not in acute distress. HENT: Head: Normocephalic. Nose: Nose normal. Mouth/Throat: Mouth: Mucous membranes are moist. Pharynx: Oropharynx is clear. Pulmonary: Effort: Pulmonary effort is normal. Abdominal: General: There is distension. Palpations: Abdomen is soft. Musculoskeletal: General: Normal range of motion. Cervical back: Normal range of motion and neck supple. No tenderness. Skin: General: Skin is warm and dry. Neurological: General: No focal deficit present. Mental Status: She is alert. Last Recorded Vitals Blood pressure (!) 168/96, pulse 68, temperature 36.4 ??C (97.6 ??F), temperature source Skin, resp. rate 16, height 1.676 m (5' 6 ), weight 92.3 kg (203 lb 7.8 oz), SpO2 95%. Results Review I have reviewed the latest lab and imaging results. Assessment & Plan Primary hyperparathyroidism ([facility]) Patient to the OR 07/05/[address] Mejias. - No changes in signs, symptoms, or health status from most recent Progress/Consult Note - Patient is marked as needed, consented, and has remained NPO since midnight. Consent is located in patient chart. - The risks, benefits, and alternatives were reviewed. Risks discussed include but not limited to bleeding, infection, damage to surrounding structures, need for additional procedures, wound complications, and risks inherent to anesthesia such as stroke, heart attack, and/or . - Patient and/or patient contact providing consent voiced understanding and agreed to proceed to the OR. Minerva Harris MD General Surgery, PGY-3 Medically Ready for Discharge:Anticipated Today [1] Current Facility-Administered Medications Medication Dose Route Frequency Provider Last Rate Last Admin ceFAZolin (Ancef) injection 2 g 2 g Intravenous Once Sindhu Torres MD lactated Ringer's infusion 75 mL/hr Intravenous Continuous Boogie Herrera MD 75 mL/hr at 07/05/25 0649 75 mL/hr at 07/05/25 0649 lidocaine (Xylocaine) 1 % injection 0.5 mL 0.5 mL Injection Once PRN Boogie Herrera MD sodium chloride 0.9 % flush 10 mL 10 mL Intravenous q12h Boogie Herrera MD And sodium chloride 0.9 % flush 10 mL 10 mL Intravenous PRN Boogie Herrera MD sodium chloride 0.9 % flush 10 mL 10 mL Intravenous q12h Sindhu Torres MD And sodium chloride 0.9 % flush 10 mL 10 mL Intravenous PRN Sindhu Torres MD Cosigned by Nato Mejias MD at 07/05/2025 7:22 AM EDT Associated attestation - Nato Mejias MD - 07/05/2025 7:22 AM EDT I saw and evaluated the patient. I discussed the case with the resident/fellow and agree with the findings and plan as documented. Proceed with parathyroidectomy. Consent reviewed. Nato Mejias MD, FACS grain operator General, Endocrine & Metabolic Surgery documented in this encounter Plan of Treatment Upcoming Encounters Date Type Department Care Team (Late st Contact Info) Description 09/08/2025 11:20 AM EDT Office Visit [facility] [address], [address] [place] [address] Randy Osuna MD [address] [facility] [address] [place] [address] documented as of this encounter Procedures Procedure Name Priority Date/Time Associated Diagnosis Comments TOTAL CALCIUM, PLASMA Routine 07/05/2025 1:09 PM EDT POCT GLUCOSE METER UNSOLICITED RESULTS Routine 07/05/2025 9:38 AM EDT INTRAOPERATIVE PTH STAT 07/05/2025 9:06 AM EDT Primary hyperparathyroidism (CMS/HCC) INTRAOPERATIVE PTH STAT 07/05/2025 9:01 AM EDT Primary hyperparathyroidism (CMS/HCC) INTRAOPERATIVE PTH STAT 07/05/2025 8:56 AM EDT Primary hyperparathyroidism (CMS/HCC) SURGICAL PATHOLOGY EXAM Routine 07/05/2025 8:14 AM EDT Primary hyperparathyroidism (CMS/HCC) SC EXPLORE PARATHYROID GLANDS 07/05/2025 7:13 AM EDT Primary hyperparathyroidism (CMS/HCC) Special Needs NIM tube INTRAOPERATIVE PTH Routine 07/05/2025 6:45 AM EDT POCT GLUCOSE METER UNSOLICITED RESULTS Routine 07/05/2025 6:00 AM EDT documented in this encounter Results * Calcium (07/05/2025 1:09 PM EDT) Total Calcium, Plasma 9.5 8.9 - 10.2 mg/dL 07/05/2025 1:45 PM EDT [facility] Blood Venous blood specimen / Unknown Venipuncture / Unknown 07/05/2025 1:09 PM EDT 07/05/2025 1:17 PM EDT us Nato Mejias MD LAB BLOOD ORDERABLES Fin al Result [facility] [address] [place] [address] * (ABNORMAL) POCT glucose meter (07/05/2025 9:38 AM EDT) POCT Glucose 188(H) 74 - 99 mg/dL 07/05/2025 9:39 AM EDT [facility] Comment:Accuracy of a glucos e result obtained from a capillary whole blood specimen relies upon adequate, non-compromised capillary blood flow. If the capillary glucose result is not consistent with the patient's clinical signs and symptoms, glucose testing should be repeated with either an arterial or venous sample on the glucometer or sent to the main labortory for testing. Comment 07/05/2025 9:39 AM EDT [facility] Senior Data Quality Analyst ID Daksha Carrington Yury 07/05/20 9:39 AM EDT [facility] Device ID [id number] 07/05/2025 9:39 AM EDT [facility] Specimen Type POC Capillary 07/05/2025 9:39 AM EDT [facility] Blood Capillary blood specimen / Unknown 07/05/2025 9:38 AM EDT 07/05/2025 9:39 AM EDT us Nato Mejias MD LAB POINT OF CAR E TEST DOCKED DEVICE UNSOLICITED RESULTS Final Result Performing Organization Address [facility] Co de Phone Number [facility] [address] [place] [address] * Intraoperative PTH (07/05/2025 9:06 AM EDT) Intraoperative PTH 10 pg/mL 2024 9:27 AM EDT [facility] Time of Collection 905 9:27 AM EDT [facility] Comment:10 Blood Venous blood specimen / Unknown 07/05/2025 9:06 AM EDT 07/05/2025 9:10 AM EDT Comment:Pre-op diagnosis: Primary hyperparathyroidism (CMS/HCC) [E21.0] Narrative [facility] - 07/05/2025 9:27 AM EDT Intraoperative PTH measures PTH levels in samples obtained during surgical procedures. Typically, a reduction of at least 50% in PTH levels from the baseline/pre-excisional sample compared to the postsurgical sample is used to support that appropriate hypersecreting parathyroid tissue has been removed. No reference interval has been established using this assay. us Nato Mejias MD LAB BLOOD ORDERABLES Fin al Result Performing Organization Address [facility] de Phone Number [facility] [address] [place] [address] * Intraoperative PTH (07/05/2025 9:01 AM EDT) Intraoperative PTH 12 pg/mL 2024 9:22 AM EDT [facility] Time of Collection 900 9:22 AM EDT [facility] Comment:5 Blood Venous blood specimen / Unknown 07/05/2025 9:01 AM EDT 07/05/2025 9:05 AM EDT Comment:Pre-op diagnosis: Primary hyperparathyroidism (CMS/HCC) [E21.0] Narrative [facility] - 07/05/2025 9:22 AM EDT Intraoperative PTH measures PTH levels in samples obtained during surgical procedures. Typically, a reduction of at least 50% in PTH levels from the baseline/pre-excisional sample compared to the postsurgical sample is used to support that appropriate hypersecreting parathyroid tissue has been removed. No reference interval has been established using this assay. Nato Mejias MD LAB BLOOD ORDERABLES [facility] al Result Performing Organization Address [facility] de Phone Number [facility] [address] [place] [address] * Intraoperative PTH (07/05/2025 8:56 AM EDT) Intraoperative PTH 21 pg/mL 2024 9:19 AM EDT [facility] Time of Collection Immediate 2024 9:19 AM EDT [facility] Comment:Excision Blood Venous blood specimen / Unknown 07/05/2025 8:56 AM EDT 07/05/2025 9:02 AM EDT Comment:Pre-op diagnosis: Primary hyperparathyroidism (CMS/HCC) [E21.0] [facility] - 07/05/2025 9:19 AM EDT Intraoperative PTH measures PTH levels in samples obtained during surgical procedures. Typically, a reduction of at least 50% in PTH levels from the baseline/pre-excisional sample compared to the postsurgical sample is used to support that appropriate hypersecreting parathyroid tissue has been removed. No reference interval has been established using this assay. Nato Mejias MD LAB BLOOD ORDERABLES Eze simpson Result Performing Organization Address [facility] Co de Phone Number [facility] [address] [place] [address] * Surgical Pathology Exam (07/05/2025 8:14 AM EDT) Case Report Surgical Pathology Case: [id number] Authorizing Provider: Nato Mejias MD Collected: 07/05/202514 Ordering Location: [facility] Operating Room Received: 07/05/2025818 Pathologist: Harriet Crocker MD Intraop: Harriet Crocker MD Specimens: A) - Parathyroid, Biopsy right superior parathyroid. B) - Parathyroid, Right inferior parathyroid gland. C) - Parathyroid, Left inferior parathyroid gland. D) - Parathyroid, Left superior parathyroid gland. E) - Neck, Superficial neck fat. F) - Neck, Left neck fat. 12:40 PM EDT [facility] Final Diagnosis A. RIGHT SUPERIOR PARATHYROID, BIOPSY: - PARATHYROID TISSUE. B. RIGHT INFERIOR PARATHYROID, PARATHYROIDECTOMY: - PARATHYROID TISSUE WITH INCLUDED FIBROADIPOSE TISSUE (COMBINED WEIGHT 0.6 G). C. LEFT INFERIOR PARATHYROID, PARATHYROIDECTOMY: - CELLULAR PARATHYROID (0.06 G). D. LEFT SUPERIOR PARATHYROID, PARATHYROIDECTOMY: - HYPERCELLULAR PARATHYROID WITH INCLUDED BENIGN THYROID TISSUE (COMBINED WEIGHT 0.21 G). E. SUPERFICIAL NECK FAT, EXCISION: - ADIPOSE TISSUE WITH INCLUDED BENIGN LYMPH NODE. F. LEFT NECK FAT, EXCISION - BENIGN ADIPOSE TISSUE. 12:40 PM EDT [facility] at 1240 EDT Comment:This is an appended report. These results have been appended to a previously preliminary verified report. Clinical Information Primary hyperparathyroidism (CMS/[facility]) [E21.0] 12:40 PM EDT [facility] Comment: This is an appended report. These results have been appended to a previously preliminary verified report. This is an appended report. These results have been appended to a previously preliminary verified report. Intraoperative Consultation A. BIOPSY RIGHT SUPERIOR PARATHYROID. FSA: PARATHYROID TISSUE B. RIGHT INFERIOR PARATHYROID GLAND. FSB: PARATHYROID TISSUE (0.16 G) C. LEFT INFERIOR PARATHYROID GLAND. FSC: CELLULAR PARATHYROID TISSUE (0.06G) D. LEFT SUPERIOR PARATHYROID GLAND. FSD: HYPERCELLULAR PARATHYROID (0.21G) 12:40 PM EDT [facility] Comment:Corrected result: Pr eviously reported as [Previous value contains rich text formatting which cannot be displayed here] (see Result History) on 07/05/2025 at 0904 EDT. Gross Description A. BIOPSY RIGHT SUPERIOR PARATHYROID. Received fresh for frozen section labeled biopsy right superior parathyroid is a cordon-brown soft tissue fragment measuring 0.2 x 0.2 x 0.2 cm. Submitted on FSA for frozen section evaluation with frozen remnant entirely submitted in cassette A1. Cold Time: 1h 45m Rose Gtz B. RIGHT INFERIOR PARATHYROID GLAND. Received fresh for frozen section labeled right inferior parathyroid gland is a cordon-brown soft tissue fragment measuring 0.8 x 0.5 x 0.3 cm and weighing 0.6 g. Submitted on FSA for frozen section evaluation with frozen remnant entirely submitted in cassette B1. Cold Time: 1h 40m Rose Gtz C. LEFT INFERIOR PARATHYROID GLAND. Received fresh for frozen section labeled left inferior parathyroid gland is a cordon-pink soft tissue fragment measuring 0.4 x 0.3 x 0.2 cm and weighing 0.06 g. Submitted on FSA for frozen section evaluation with frozen remnant entirely submitted in cassette C1. Cold Time: 1h 20m Rose Gtz D. LEFT SUPERIOR PARATHYROID GLAND. Received fresh for frozen section labeled left superior parathyroid gland is a red-cordon soft tissue fragment measuring 1.5 x 0.5 x 0.4 cm and weighing 0.21 g. Submitted on FSA for frozen section evaluation with frozen remnant entirely submitted in cassette D1. Cold Time: 1h 05m Rose Gtz E. SUPERFICIAL NECK FAT. Received in formalin labeled superficial neck fat is a portion of yellow-pink adipose tissue measuring 2.1 x 1.0 x 0.4 cm. The specimen is entirely submitted in cassette E1. Cold Time: <1m Rose Gtz F. LEFT NECK FAT. Received in formalin labeled left neck fat is a portion of pink-yellow adipose tissue measuring 1.1 x 0.6 x 0.2 cm. The specimen is entirely submitted in cassette F1. Cold Time: <1m Rose Gtz 5 12:40 PM EDT [facility] Comment:This is an appended report. These results have been appended to a previously preliminary verified report. Note: A resident was involved in the service. I attest I examined the relevant preparations for the specimens and confirmed the diagnosis or interpretation. 12:40 PM EDT [facility] Comment:This is an appended report. These results have been appended to a previously preliminary verified report. Tissue Parathyroid structure / Unknown 07/05/2025 8:04 AM EDT 07/05/2025 10:48 AM EDT Comment:Pre-op diagnosis: Primary hyperparathyroidism (CMS/HCC) [E21.0] Tissue specimen (specimen) Parathyroid structure / Unknown 07/05/2025 8:14 AM EDT 07/05/2025 8:19 AM EDT Comment:Pre-op diagnosis: Primary hyperparathyroidism (CMS/HCC) [E21.0] Tissue specimen (specimen) Parathyroid structure / Unknown 07/05/2025 8:19 AM EDT 07/05/2025 8:23 AM EDT Comment:Pre-op diagnosis: Primary hyperparathyroidism (CMS/HCC) [E21.0] Tissue specimen (specimen) Parathyroid structure / Unknown 07/05/2025 8:39 AM EDT 07/05/2025 8:44 AM EDT Comment:Pre-op diagnosis: Primary hyperparathyroidism (CMS/HCC) [E21.0] Tissue specimen (specimen) Neck structure / Unknown 07/05/2025 8:49 AM EDT 07/05/2025 10:48 AM EDT Comment:Pre-op diagnosis: Primary hyperparathyroidism (CMS/HCC) [E21.0] Tissue specimen (specimen) Parathyroid structure / Unknown 07/05/2025 8:54 AM EDT 07/05/2025 9:01 AM EDT Comment:Pre-op diagnosis: Primary hyperparathyroidism (CMS/HCC) [E21.0] us Nato Mejias MD LAB PATHOLOGY ORDERABLES Final Result [facility] [address] [place] [address] * Intraoperative PTH (07/05/2025 6:45 AM EDT) Intraoperative PTH 79 pg/mL 2024 7:16 AM EDT [facility] Time of Collection 0630 2024 7:16 AM EDT [facility] Blood Venous blood specimen / Unknown Venipuncture / Unknown 07/05/2025 6:45 AM EDT 07/05/2025 6:58 AM EDT Narrative [facility] - 07/05/2025 7:16 AM EDT Intraoperative PTH measures PTH levels in samples obtained during surgical procedures. Typically, a reduction of at least 50% in PTH levels from the baseline/pre-excisional sample compared to the postsurgical sample is used to support that appropriate hypersecreting parathyroid tissue has been removed. No reference interval has been established using this assay. us Nato Mejias MD LAB BLOOD ORDERABLES Fin al Result Performing Organization Address [facility] Co de Phone Number [facility] [address] [place] [address] * (ABNORMAL) POCT glucose meter (07/05/2025 6:00 AM EDT) POCT Glucose 178(H) 74 - 99 mg/dL 07/05/2025 6:02 AM EDT [facility] Comment:Accuracy of a glucos e result obtained from a capillary whole blood specimen relies upon adequate, non-compromised capillary blood flow. If the capillary glucose result is not consistent with the patient's clinical signs and symptoms, glucose testing should be repeated with either an arterial or venous sample on the glucometer or sent to the main labortory for testing. Comment 07/05/2025 6:02 AM EDT [facility] Senior Data Quality Analyst ID Cece Duffy 6:02 AM EDT [facility] Device ID [id number] 07/05/2025 6:02 AM EDT [facility] Specimen Type POC Capillary 07/05/2025 6:02 AM EDT [facility] Blood Capillary blood specimen / Unknown 07/05/2025 6:00 AM EDT 07/05/2025 6:02 AM EDT us Nato Mejias MD LAB POINT OF CAR E TEST DOCKED DEVICE UNSOLICITED RESULTS Final Result Performing Organization Address [facility] Co de Phone Number [facility] [address] [place] [address] documented in this encounter Visit Diagnoses Diagnosis Primary hyperparathyroidism (CMS/HCC)- Primary Primary hyperparathyroidism documented in this encounter Admitting Diagnoses Diagnosis Primary hyperparathyroidism ([facility]) Primary hyperparathyroidism documented in this encounter Administered Medications Inactive Administered Medications - up to 3 most recent administrations Medication Order MAR Action Action Date Dose Rate Site acetaminophen (Tylenol) 160 MG/5ML solution 960 mg 960 mg, Oral, Every 6 hours PRN, Starting on Sat07/05/25 at 1010, Until Sat07/05/25 at 1530, Routine, mild pain Given 07/05/2025 10:31 AM EDT 960 mg calcium carbonate (Tums) chewable tablet 2,000 mg 2,000 mg, Oral, Every 6 hours PRN, Starting on Sat07/05/25 at 0949, Until Sat07/05/25 at 1530, Routine, Recovery(Phase II-Outpatient)/On Unit(Inpatient), indigestion, heartburn, numbness/tingling/cramping fentaNYL (Sublimaze) injection 25 mcg 25 mcg, Intravenous, Every 5 min PRN, 2 doses, Starting on Sat07/05/25 at 0938, Until Sat07/05/25 at 1052, Routine, Recovery (Phase I only), pain score of 3-4 out of 10 Given 07/05/2025 10:52 AM EDT 25 mcg Given 07/05/2025 10:05 AM EDT 25 mcg hydrALAZINE (Apresoline) 20 MG/ML injection - Pyxis Override Pull 1 dose, Starting on Sat07/05/25 at 0938, Until Sat07/05/25 at 0944 hydrALAZINE (Apresoline) injection 10 mg 10 mg, Intravenous, Once as needed, 1 dose, Starting on Sat07/05/25 at 0949, Until Sat07/05/25 at 0944, Routine, Recovery (Phase I only), high blood pressure, SBP >150 AND HR <60 Given 07/05/2025 9:44 AM EDT 10 mg hydrALAZINE (Apresoline) injection 10 mg 10 mg, Intravenous, Every 4 hours PRN, Starting on Sat07/05/25 at 0949, Until Sat07/05/25 at 1530, Routine, Recovery(Phase II-Outpatient)/On Unit(Inpatient), high blood pressure, use second line for SBP >150 when HR <60 hydrALAZINE (Apresoline) injection 10 mg 10 mg, Intravenous, Every 15 min PRN, 3 doses, Starting on Sat07/05/25 at 1100, Until Sat07/05/25 at 1530, Routine, Recovery (Phase I only), high blood pressure, For SBP > 150 Given 07/05/2025 11:02 AM EDT 10 mg hydrALAZINE (Apresoline) injection 5 mg 5 mg, Intravenous, Every 6 hours PRN, 4 doses, Starting on Sat07/05/25 at 0938, Until Sat07/05/25 at 1530, Routine, Recovery (Phase I only), high blood pressure HYDROmorphone (Dilaudid) injection 0.5 mg 0.5 mg, Intravenous, Every 10 min PRN, 2 doses, Starting on Sat07/05/25 at 0938, Until Sat07/05/25 at 1530, Routine, Recovery (Phase I only), pain score of 9-10 out of 10 labetalol (Normodyne,Trandate) injection 10 mg 10 mg, Intravenous, Every 4 hours PRN, 2 doses, Starting on Sat07/05/25 at 0938, Until Sat07/05/25 at 1530, Routine, Recovery (Phase I only), high blood pressure Given 07/05/2025 10:26 AM EDT 10 mg labetalol (Normodyne,Trandate) injection 10 mg 10 mg, Intravenous, Every 15 min PRN, 3 doses, Starting on Sat07/05/25 at 1059, Until Sat07/05/25 at 1530, Routine, Recovery (Phase I only), high blood pressure, For SBP > 150 labetalol (Normodyne,Trandate) injection 20 mg 20 mg, Intravenous, Every 4 hours PRN, Starting on Sat07/05/25 at 0949, Until Sat07/05/25 at 1530, Routine, Recovery(Phase II-Outpatient)/On Unit(Inpatient), high blood pressure, use first line for SBP >150; HOLD for HR <60 Given 07/05/2025 10:46 AM EDT 10 mg lactated Ringer's infusion 75 mL/hr, Intravenous, Continuous, Starting on Sat07/05/25 at 0700, Until Sat07/05/25 at 1530, Routine Restarted 07/05/2025 7:25 AM EDT New Bag 07/05/2025 6:49 AM EDT 75 mL/hr 75 mL/hr ondansetron (Zofran) 4 MG/5ML solution 4 mg 4 mg, Oral, Every 6 hours PRN, Starting on Sat07/05/25 at 0949, Until Sat07/05/25 at 1530, Routine, Recovery(Phase II-Outpatient)/On Unit(Inpatient), nausea, vomiting ondansetron (Zofran) injection 4 mg 4 mg, Intravenous, Once as needed, 1 dose, Starting on Sat07/05/25 at 0938, Until Sat07/05/25 at 1530, Routine, Recovery (Phase I only), nausea, vomiting ondansetron (Zofran) injection 4 mg 4 mg, Intravenous, Every 6 hours PRN, Starting on Sat07/05/25 at 0949, Until Sat07/05/25 at 1530, Routine, Recovery(Phase II-Outpatient)/On Unit(Inpatient), vomiting, nausea ondansetron ODT (Zofran-ODT) disintegrating tablet 4 mg 4 mg, Oral, Every 6 hours PRN, Starting on Sat07/05/25 at 0949, Until Sat07/05/25 at 1530, Routine, Recovery(Phase II-Outpatient)/On Unit(Inpatient), nausea, vomiting oxyCODONE (Roxicodone) immediate release tablet 10 mg 10 mg, Oral, Once as needed, 2 doses, Starting on Sat07/05/25 at 0937, Until Sat07/05/25 at 1530, Routine, Recovery (Phase I only), pain score of 6-8 out of 10 oxyCODONE (Roxicodone) immediate release tablet 5 mg 5 mg, Oral, Once as needed, 2 doses, Starting on Sat07/05/25 at 0937, Until Sat07/05/25 at 1530, Routine, Recovery (Phase I only), pain score of 3-5 out of 10 Povidone-Iodine 5 % swab solution 1 Application Nasal, Once, 1 dose, On Sat07/05/25 at 0700, Routine Given 07/05/2025 6:49 AM EDT 1 Application sodium chloride 0.9 % flush 10 mL 10 mL, Intravenous, Every 12 hours, First dose on Sat07/05/25 at 0700, Until Discontinued, Routine, Holding - Preprocedure sodium chloride 0.9 % flush 10 mL 10 mL, Intravenous, As needed, Starting on Sat07/05/25 at 0609, Until Sat07/05/25 at 1530, Routine, Holding - Preprocedure, line care documented in this encounter Active and Recently Administered Medications Times are shown in EDT. Scheduled Medication Order 07/03/2025 07/04/2025 07/05/2025 ceFAZolin (Ancef) injection 2 g (COMPLETED) 2 g, Intravenous, Once, 1 dose, On Sat07/05/25 at 0700, Routine, Anesthesia Intraprocedure 0747 (Given - Provid er: Adis Ravi) Povidone-Iodine 5 % swab solution 1 Application (COMPLETED) Nasal, Once, 1 dose, On Sat07/05/25 at 0700, Routine 0649 (Given - Provid er: Gaby Ortiz RN) sodium chloride 0.9 % flush 10 mL(Linked Group 1) 10 mL, Intravenous, Every 12 hours, First dose on Sat07/05/25 at 0700, Until Discontinued, Routine, Holding - Preprocedure 0700 (Canceled Entry - Provider: Automatic Discharge Provider - Comment: Automatically canceled at discontinue of medication order) Continuous Medication Order 07/03/2025 07/04/2025 07/05/2025 lactated Ringer's infusion 75 mL/hr, Intravenous, Continuous, Starting on Sat07/05/25 at 0700, Until Sat07/05/25 at 1530, Routine 0649 (New Bag - Prov ider: Gaby Ortiz RN)0724 (Paused - Provider: Adis Ravi - Comment: Switch to gravity)0725 (Restarted - Provider: Adis Ravi)0939 (Stopped - Provider: Adis Ravi) PRN Medication Order 07/03/2025 07/04/2025 07/05/2025 acetaminophen (Tylenol) 160 MG/5ML solution 960 mg 960 mg, Oral, Every 6 hours PRN, Starting on Sat07/05/25 at 1010, Until Sat07/05/25 at 1530, Routine, mild pain 1031 (Given - Provid er: Yuly Gaona RN) bupivacaine PF (Marcaine) 0.25 % injection (CANCELED) As needed, Starting on Sat07/05/25 at 0748, Until Sat07/05/25 at 0932, Routine, Intraprocedure 0748 (Given - Provid er: Nato Mejias MD - Comment: Neck) bupivacaine-EPINEPHrine PF (Marcaine w/EPI) 0.25% -[id number] injection (CANCELED) As needed, Starting on Sat07/05/25 at 0749, Until Sat07/05/25 at 0932, Routine, Intraprocedure 0749 (Given - Provid er: Nato Mejias MD - Comment: Neck) calcium carbonate (Tums) chewable tablet 2,000 mg 2,000 mg, Oral, Every 6 hours PRN, Starting on Sat07/05/25 at 0949, Until Sat07/05/25 at 1530, Routine, Recovery(Phase II-Outpatient)/On Unit(Inpatient), indigestion, heartburn, numbness/tingling/cramping fentaNYL (Sublimaze) injection 25 mcg (COMPLETED) 25 mcg, Intravenous, Every 5 min PRN, 2 doses, Starting on Sat07/05/25 at 0938, Until Sat07/05/25 at 1052, Routine, Recovery (Phase I only), pain score of 3-4 out of 10 1005 (Given - Provid er: Yuly Gaona RN)1052 (Given - Provider: Yuly Gaona RN) hydrALAZINE (Apresoline) injection 10 mg (COMPLETED)(Linked Group 2) 10 mg, Intravenous, Once as needed, 1 dose, Starting on Sat07/05/25 at 0949, Until Sat07/05/25 at 0944, Routine, Recovery (Phase I only), high blood pressure, SBP >150 AND HR <60 0944 (Given - Provid er: Yuly Gaona RN) hydrALAZINE (Apresoline) injection 10 mg(Linked Group 3) 10 mg, Intravenous, Every 4 hours PRN, Starting on Sat07/05/25 at 0949, Until Sat07/05/25 at 1530, Routine, Recovery(Phase II-Outpatient)/On Unit(Inpatient), high blood pressure, use second line for SBP >150 when HR <60 1046 (See Alternativ e - Provider: Yuly Gaona RN) hydrALAZINE (Apresoline) injection 10 mg 10 mg, Intravenous, Every 15 min PRN, 3 doses, Starting on Sat07/05/25 at 1100, Until Sat07/05/25 at 1530, Routine, Recovery (Phase I only), high blood pressure, For SBP > 150 1102 (Given - Provid er: Yuly Gaona RN) hydrALAZINE (Apresoline) injection 5 mg 5 mg, Intravenous, Every 6 hours PRN, 4 doses, Starting on Sat07/05/25 at 0938, Until Sat07/05/25 at 1530, Routine, Recovery (Phase I only), high blood pressure HYDROmorphone (Dilaudid) injection 0.5 mg 0.5 mg, Intravenous, Every 10 min PRN, 2 doses, Starting on Sat07/05/25 at 0938, Until Sat07/05/25 at 1530, Routine, Recovery (Phase I only), pain score of 9-10 out of 10 labetalol (Normodyne,Trandate) injection 10 mg 10 mg, Intravenous, Every 4 hours PRN, 2 doses, Starting on Sat07/05/25 at 0938, Until Sat07/05/25 at 1530, Routine, Recovery (Phase I only), high blood pressure 1026 (Given - Provid er: Yuly Gaona RN) labetalol (Normodyne,Trandate) injection 10 mg 10 mg, Intravenous, Every 15 min PRN, 3 doses, Starting on Sat07/05/25 at 1059, Until Sat07/05/25 at 1530, Routine, Recovery (Phase I only), high blood pressure, For SBP > 150 labetalol (Normodyne,Trandate) injection 20 mg(Linked Group 3) 20 mg, Intravenous, Every 4 hours PRN, Starting on Sat07/05/25 at 0949, Until Sat07/05/25 at 1530, Routine, Recovery(Phase II-Outpatient)/On Unit(Inpatient), high blood pressure, use first line for SBP >150; HOLD for HR <60 1046 (Given - Provid er: Yuly Gaona RN) ondansetron (Zofran) 4 MG/5ML solution 4 mg(Linked Group 4) 4 mg, Oral, Every 6 hours PRN, Starting on Sat07/05/25 at 0949, Until Sat07/05/25 at 1530, Routine, Recovery(Phase II-Outpatient)/On Unit(Inpatient), nausea, vomiting ondansetron (Zofran) injection 4 mg 4 mg, Intravenous, Once as needed, 1 dose, Starting on Sat07/05/25 at 0938, Until Sat07/05/25 at 1530, Routine, Recovery (Phase I only), nausea, vomiting ondansetron (Zofran) injection 4 mg(Linked Group 4) 4 mg, Intravenous, Every 6 hours PRN, Starting on Sat07/05/25 at 0949, Until Sat07/05/25 at 1530, Routine, Recovery(Phase II-Outpatient)/On Unit(Inpatient), vomiting, nausea ondansetron ODT (Zofran-ODT) disintegrating tablet 4 mg(Linked Group 4) 4 mg, Oral, Every 6 hours PRN, Starting on Sat07/05/25 at 0949, Until Sat07/05/25 at 1530, Routine, Recovery(Phase II-Outpatient)/On Unit(Inpatient), nausea, vomiting oxyCODONE (Roxicodone) immediate release tablet 10 mg(Linked Group 5) 10 mg, Oral, Once as needed, 2 doses, Starting on Sat07/05/25 at 0937, Until Sat07/05/25 at 1530, Routine, Recovery (Phase I only), pain score of 6-8 out of 10 oxyCODONE (Roxicodone) immediate release tablet 5 mg(Linked Group 5) 5 mg, Oral, Once as needed, 2 doses, Starting on Sat07/05/25 at 0937, Until Sat07/05/25 at 1530, Routine, Recovery (Phase I only), pain score of 3-5 out of 10 sodium chloride 0.9 % flush 10 mL(Linked Group 1) 10 mL, Intravenous, As needed, Starting on Sat07/05/25 at 0609, Until Sat07/05/25 at 1530, Routine, Holding - Preprocedure, line care thrombin (recombinant) (Recothrom) topical solution (CANCELED) As needed, Starting on Sat07/05/25 at 0909, Until Sat07/05/25 at 0932, Routine 0909 (Given - Provid er: Nato Mejias MD - Comment: Operative site.) Linked Groups Order Group 1: Insert peripheral IV (CANCELED) Once, On Sat07/05/25 at 0610, For 1 occurrence, Holding - Preprocedure And Saline lock IV (CANCELED) Once, On Sat07/05/25 at 0610, For 1 occurrence, Holding - Preprocedure And sodium chloride 0.9 % flush 10 mLJump to med 10 mL, Intravenous, Every 12 hours, First dose on Sat07/05/25 at 0700, Until Discontinued, Routine, Holding - Preprocedure And sodium chloride 0.9 % flush 10 mLJump to med 10 mL, Intravenous, As needed, Starting on Sat07/05/25 at 0609, Until Sat07/05/25 at 1530, Routine, Holding - Preprocedure, line care Group 2: labetalol (Normodyne,Trandate) injection 20 mg (COMPLETED) 20 mg, Intravenous, Once as needed, 1 dose, Starting on Sat07/05/25 at 0949, Until Sat07/05/25 at 0944, Routine, Recovery (Phase I only), high blood pressure, SBP >150; HOLD for HR <60 Or hydrALAZINE (Apresoline) injection 10 mg (COMPLETED)Jump to med 10 mg, Intravenous, Once as needed, 1 dose, Starting on Sat07/05/25 at 0949, Until Sat07/05/25 at 0944, Routine, Recovery (Phase I only), high blood pressure, SBP >150 AND HR <60 Group 3: labetalol (Normodyne,Trandate) injection 20 mgJump to med 20 mg, Intravenous, Every 4 hours PRN, Starting on Sat07/05/25 at 0949, Until Sat07/05/25 at 1530, Routine, Recovery(Phase II-Outpatient)/On Unit(Inpatient), high blood pressure, use first line for SBP >150; HOLD for HR <60 Or hydrALAZINE (Apresoline) injection 10 mgJump to med 10 mg, Intravenous, Every 4 hours PRN, Starting on Sat07/05/25 at 0949, Until Sat07/05/25 at 1530, Routine, Recovery(Phase II-Outpatient)/On Unit(Inpatient), high blood pressure, use second line for SBP >150 when HR <60 Group 4: ondansetron ODT (Zofran-ODT) disintegrating tablet 4 mgJump to med 4 mg, Oral, Every 6 hours PRN, Starting on Sat07/05/25 at 0949, Until Sat07/05/25 at 1530, Routine, Recovery(Phase II-Outpatient)/On Unit(Inpatient), nausea, vomiting Or ondansetron (Zofran) injection 4 mgJump to med 4 mg, Intravenous, Every 6 hours PRN, Starting on Sat07/05/25 at 0949, Until Sat07/05/25 at 1530, Routine, Recovery(Phase II-Outpatient)/On Unit(Inpatient), vomiting, nausea Or ondansetron (Zofran) 4 MG/5ML solution 4 mgJump to med 4 mg, Oral, Every 6 hours PRN, Starting on Sat07/05/25 at 0949, Until Sat07/05/25 at 1530, Routine, Recovery(Phase II-Outpatient)/On Unit(Inpatient), nausea, vomiting Group 5: oxyCODONE (Roxicodone) immediate release tablet 5 mgJump to med 5 mg, Oral, Once as needed, 2 doses, Starting on Sat07/05/25 at 0937, Until Sat07/05/25 at 1530, Routine, Recovery (Phase I only), pain score of 3-5 out of 10 Or oxyCODONE (Roxicodone) immediate release tablet 10 mgJump to med 10 mg, Oral, Once as needed, 2 doses, Starting on Sat07/05/25 at 0937, Until Sat07/05/25 at 1530, Routine, Recovery (Phase I only), pain score of 6-8 out of 10 documented in this encounter Additional Health Concerns Assessment Noted Time A fall risk assessment has been complete d for the patient 06/24/2025 9:00 AM EDT A Body Mass Index follow-up plan has been documented for the patient 06/24/2025 10:04 AM EDT documented as of this encounter Care Teams Sprinkling System Installer Relationship Specialty Start Date End Date Piotr Eason MD PCP - General Family Medicine 05/05/25 documented as of this encounter
--- OUTSIDE RECORDS SUMMARY | 2025-07-05 07:25 | XMS_ITS | Encounter Summary ---
Author Organization Healthcare Address [address] [place] [address] Care Team Providers Care Delivery Associate Name Role Phone Piotr Eason MD Primary Care Provider Alma vailable Reason for Visit * Auth/Cert (Routine) Specialty Diagnoses / Procedures Referred By Contac t Referred To Contact Diagnoses Primary hyperparathyroidism (CMS/HCC) Primary hyperparathyroidism ([facility]) [E21.0] Procedures CA EXPLORE PARATHYROID GLANDS CA VNPNXR 3 YEARS/> PHYS/QHP SKILL PARATHYROIDECTOMY Nato Mejias MD [address] [address] Phone: tel: fax: [facility] Operating Room [address] [place] [address] Phone: tel: Referral ID Status Reason Start Date Expiration Date Visits Re quested Visits Authorized [id number] 1 1 Encounter Details Date Type Department Care Team (Late st Contact Info) Description 07/05/2025 7:25 AM EDT Anesthesia Event [facility] Operating Room [address] [place] [address] Boogie Herrera MD [address] [place] [id number] Anesthesia Record Procedure Summary Procedure Name Responsible Anesthesiologist Anesthesia Start Time Anesthesia Stop Time PARATHYROIDECTOMY (Neck) Boogie Herrera MD 07/05 0725 07/05/25 0937 Events Date Time Event Comment 07/05/2025 0702 0725 An Start The patient was reevaluated immediately before sedation and remains eligible for anesthesia plan. 0728 In Room 0729 An Start Data 0733 An Induction The patient was reevaluated immediately before moderate or deep sedation use and before anesthesia induction. 0739 An Intubation 0742 Anesthesia Ready 0756 Proc Start 0925 Proc Fin 0925 An Extubation 0931 an stop data 0932 Out of Room 0937 Handoff to Receiving I compl eted my handoff to the receiving clinician during which we: 1. Identified the patient 2. Identified the responsible provider 3. Reviewed the pertinent medical history 4. Discussed the surgical course 5. Reviewed intra-op anesthesia management and issues during anesthesia 6. Set expectations for post-procedure period 7. Allowed opportunity for questions and acknowledgement of understanding. 0937 An Stop 0938 an prince now Meds Name Total fentaNYL (Sublimaze) injection 50 mcg/mL 100 mcg lidocaine PF (Xylocaine-MPF) 2% 100 mg propofol (Diprivan) injection 10 mg/mL 2 25 mg succinylcholine (Anectine) injection 20 mg/mL 100 mg dexamethasone (Decadron) injection 4 mg/ mL 8 mg ceFAZolin (Ancef) injection 2 g 2 g lactated Ringer's infusion 600 mL * Agents Name O2 Sevoflurane Inspired Sevoflurane * Blood No blood administrations on file. Lines, Drains, and Airways Type Details Placement Removal Wound 07/05/25; 08; N; Y es; Surgical; Open Surg; Throat; Anterior 07/05/25 08 by Dena Lima RN Peripheral IV Placement Date: 06/18 07/12; Placement Time: 0630; Catheter Size: 20 G; Orientation: Anterior, Right; Location: Forearm; Site Prep: Alcohol; Inserted by: NARCISO HAWK; Insertion Attempts: 1; Patient Tolerance: Tolerated well; Removal Date: 07/05/25; Removal Time: 1317; Removal Reason: Per protocol 07/05/25 0630 by Gaby Ortiz RN 07/05/25 1317 by Yuly Gaona RN ETT Placement Date: 06/18 07/12; Placement Time: 0739 (created via procedure documentation); Mask Ventilation: 1; Technique: Video laryngoscopy; Type: NIM tube; Cuffed: Yes; Blade Size: 3; Location: Oral; Grade View: Grade IIb; Insertion Attempts: 1; Placement Verification: Auscultation, Capnometry; Airway Comments: Atraumatic. No change to dentition. ; Placed by: Other (Comment); Removal Date: 07/05/25; Removal Time: [id number]/05/[id number] by Adis Ravi 07/05/25924 by Adis Ravi documented in this encounter Social History Tobacco Use Types Packs/Day Years [...] week 06/24/2025 How often do you attend [facility] or restorationism services? Never 06/24/2025 Do you belong to any clubs o r organizations such as confucianist groups, unions, fraternal or athletic groups, or [...] and heating? Not hard at all 06/24/2025 [facility] - Occupational Stress Questionnaire Answer Date Recorded [...] any time in the past [address] [facility], were you homeless or living in a fpc (including now)? No 06/24/2025 Utilities Answer Date Recorded In the past 12 months has th e electric, gas, oil, or water company threatened to shut off services in your home? No 06/24/2025 Comments No Sex and Gender Information Value Date Recorded Sex Assigned at Not on file Legal Sex Female 8:24 PM EDT Gender Identity Not on file Sexual Orientation Not on file documented as of this encounter Functional Status * Calculated C-SSRS [...] of this encounter Miscellaneous Notes * Anesthesia Postprocedure Evaluation - Adis Ravi - 07/05/2025 9:40 AM EDT Patient: Bernice Cooney Anesthesia Type: general Vitals Value Taken Time BP 201/103 07/05/25 09:35 Temp 97.1 07/05/25 09:40 Pulse 81 07/05/25 09:39 Resp 15 07/05/25 09:38 SpO2 93 % 07/05/25 09:39 Vitals shown include unfiled device data. Anesthesia Post Evaluation Patient participation: complete - patient cannot participate Level of consciousness: sedated Pain management: adequate (pain score 0-3) Airway patency: natural airway Cardiovascular status: acceptable Respiratory status: blow-by oxygen and oral airway No notable events documented. antihypertensives ordered. Cosigned by Boogie Streeter CRNA at 07/05/2025 9:57 AM EDT * Anesthesia Procedure Notes - Adis Ravi - 07/05/2025 7:59 AM EDTAssociated Order(s): Airway Airway Date/Time: 07/05/2025 7:39 AM Reason: elective Airway not difficult General Information and Staff Patient location during procedure: OR Other anesthesia staff: Adis Ravi Performed: Other Anesthesia Staff Patient Condition Indications for airway management: anesthesia Patient position: sniffing Final Airway Details Final airway type: endotracheal airway Successful airway: NIM tube Cuffed: yes Successful intubation technique: video laryngoscopy Adjuncts used in placement: intubating stylet Endotracheal tube insertion site: oral Blade: other Blade size: #3 Cormack-Lehane Classification: grade IIb - view of arytenoids or posterior of glottis only Placement verified by: chest auscultation and capnometry Measured from: lips Additional Comments Atraumatic. No change to dentition. Cosigned by Boogie Streeter CRNA at 07/05/2025 9:57 AM EDT * Anesthesia Preprocedure Evaluation - Boogie Herrera MD - 07/05/2025 6:52 AM EDT Images from the original note were not included. HOLLY Cooney is a 70 y.o. female who presents with Pre-op Diagnosis * Primary hyperparathyroidism (CMS/HCC) [E21.0] now scheduled for PARATHYROIDECTOMY (N/A). with Nato Mejias MD on 07/05/[address] [facility]. Past Medical History[1] Family History[2] Social History[3] SURGICAL HISTORY: Surgical History[4] Allergies[5] MEDICATIONS: Current Medications[6] Past medical history: Osteoporosis, DM2 (7.0), GERD, obesity, primary hyperparathyoid Past surgical history: , CCY, hernia repair, hysterectomy Social history: Denies hx or current drug use. Prior anesthesia history: The pt denies any problems with anesthesia in the past. Allergies: NKA Anti-coagulation/anti-platelet: No METS/Activity Level: > 4 NPO: Appropriate 07/02/2025 12:59 PM Vitals Weight (kg) 94.802 [...] atrial fibrillation, CAD, CHF, dyspnea, dysrhythmias, murmur,past IA or syncope. hypertension: is well controlled. Exercise [...] Does not have arthritis or multiple sclerosis. [facility] additional comments: Hx osteoporosis. Autoimmune: Does not [...] found for: INR , PROTIME Visit Vitals OB Status Hysterectomy Smoking Status Never Physical Exam Airway Mallampati: II Mouth opening: normal TM distance: >3 FB Neck ROM: full Cardiovascular Rhythm: regular Rate: normal Dental - normal exam Pulmonary Breath sounds clear to auscultation Neurological Oriented: normal to time, normal to place and normal to person and oriented to person, place and time Skin Musculoskeletal Extremities Anesthesia Plan ASA 3 Plan was reviewed with: AIRPORT ENGINEER Anesthesia technique(s) discussed with the patient/family: general Anesthesia plan agreed upon was: general Comment: DESMOND phone screen with pt. And pt.'s . Anesthetic plan and risks discussed with patient. Boogie Herrera MD [1] Past Medical History: Diagnosis Date Personal [...] CLASSIC SECTION, LOW TRANSVERSE N/A Section from [employer] GALLBLADDER SURGERY N/A Gallbladder Surgery from [facility] HERNIA REPAIR 2020 HYSTERECTOMY N/A Hysterectomy from [facility] [5] No Known Allergies [6] Current Facility-Administered Medications: ceFAZolin lactated Ringer's lidocaine sodium chloride AND sodium chloride Insert peripheral IV AND Saline lock IV AND sodium chloride AND sodium chloride documented in this encounter Plan of Treatment Upcoming Encounters Date Type Department Care Team (Late st Contact Info) Description 09/08/2025 11:20 AM EDT Office Visit [facility] [address], [address] [place] [address] Randy Osuna MD [address] [facility] [address] [place] [address] documented as of this encounter Procedures Procedure Name Priority Date/Time Associated Diagnosis Comments HC ENDOTRACHEAL TUBE Routine 07/05/2025 7:39 AM EDT PB ANESTHESIA PLACEHOLDER Routine 07/05/2025 7:39 AM EDT CA AN ELECTIVE ENDOTRACHEAL AIRWAY Routine 07/05/2025 7:39 AM EDT documented in this encounter Results * CA AN ELECTIVE ENDOTRACHEAL AIRWAY, PB ANESTHESIA PLACEHOLDER, HC ENDOTRACHEAL TUBE (07/05/2025 7:39 AM EDT) Narrative Boogie Streeter CRNA - 07/05/2025 7:39 AM EDT Boogie Streeter CRNA 07/05/2025 9:57 AM Airway Date/Time: 07/05/2025 7:39 AM Reason: elective Airway not difficult General Information and Staff Patient location during procedure: OR Other anesthesia staff: Adis Ravi Performed: Other Anesthesia Staff Patient Condition Indications for airway management: anesthesia Patient position: sniffing Final Airway Details Final airway type: endotracheal airway Successful airway: NIM tube Cuffed: yes Successful intubation technique: video laryngoscopy Adjuncts used in placement: intubating stylet Endotracheal tube insertion site: oral Blade: other Blade size: #3 Cormack-Lehane Classification: grade IIb - view of arytenoids or posterior of glottis only Placement verified by: chest auscultation and capnometry Measured from: lips Additional Comments Atraumatic. No change to dentition. us Boogie Herrera MD ANESTHESIA ORDERABLES Sussy guillaume Result documented in this encounter Visit Diagnoses Not on filedocumented in this encounter Administered Medications Inactive Administered Medications - up to 3 most recent administrations Medication Order MAR Action Action Date Dose Rate Site ceFAZolin (Ancef) injection 2 g 2 g, Intravenous, Once, 1 dose, On Sat07/05/25 at 0700, Routine, Anesthesia Intraprocedure Given 07/05/2025 7:47 AM EDT 2 g dexamethasone (Decadron) injection Intravenous, As needed, Starting on Sat07/05/25 at 0743, Until Sat07/05/25 at 0940, Routine, Anesthesia Intraprocedure Given 07/05/2025 7:43 AM EDT 8 mg fentaNYL (Sublimaze) injection Intravenous, As needed, Starting on Sat07/05/25 at 0733, Until Sat07/05/25 at 0940, Routine, Anesthesia Intraprocedure Given 07/05/2025 9:02 AM EDT 25 mcg Given 07/05/2025 8:29 AM EDT 25 mcg Given 07/05/2025 7:52 AM EDT 25 mcg lactated Ringer's infusion 75 mL/hr, Intravenous, Continuous, Starting on Sat07/05/25 at 0700, Until Sat07/05/25 at 1530, Routine Restarted 07/05/2025 7:25 AM EDT New Bag 07/05/2025 6:49 AM EDT 75 mL/hr 75 mL/hr lidocaine PF (Xylocaine) 2 % injection Intravenous, As needed, Starting on Sat07/05/25 at 0733, Until Sat07/05/25 at 0940, Routine, Anesthesia Intraprocedure Given 07/05/2025 7:33 AM EDT 100 mg propofol (Diprivan) injection Intravenous, As needed, Starting on Sat07/05/25 at 0733, Until Sat07/05/25 at 0940, Routine, Anesthesia Intraprocedure Given 07/05/2025 7:57 AM EDT 50 mg Given 07/05/2025 7:37 AM EDT 25 mg Given 07/05/2025 7:33 AM EDT 150 mg succinylcholine (Anectine) injection Intravenous, As needed, Starting on Sat07/05/25 at 0733, Until Sat07/05/25 at 0940, Routine, Anesthesia Intraprocedure Given 07/05/2025 7:33 AM EDT 100 mg documented in this encounter Additional Health Concerns Assessment Noted Time A fall risk assessment has been complete d for the patient 06/24/2025 9:00 AM EDT A Body Mass Index follow-up plan has been documented for the patient 06/24/2025 10:04 AM EDT documented as of this encounter Care Teams Delivery Associate Relationship Specialty Start Date End Date Piotr Eason MD PCP - General Family Medicine 05/05/25 documented as of this encounter
--- OUTSIDE RECORDS SUMMARY | 2025-07-05 07:30 | XMS_ITS | Encounter Summary ---
Author Organization Healthcare Address [address] [place] [address] Care Team Providers Care Elderly Companion Name Role Phone Piotr Eason MD Primary Care Provider Alma vailable Reason for Visit * Auth/Cert (Routine) Specialty Diagnoses / Procedures Referred By Contac t Referred To Contact Diagnoses Primary hyperparathyroidism (CMS/HCC) Primary hyperparathyroidism ([facility]) [E21.0] Procedures VT EXPLORE PARATHYROID GLANDS VT VNPNXR 3 YEARS/> PHYS/QHP SKILL PARATHYROIDECTOMY Nato Mejias MD [address] [place] [phone] Phone: tel: fax: [facility] Operating Room [address] [place] [address] Phone: tel: Referral ID Status Reason Start Date Expiration Date Visits Re quested Visits Authorized [id number] 1 1 Encounter Details Date Type Department Care Team (Late st Contact Info) Description 07/05/2025 7:30 AM EDT - 07/05/2025 9:55 AM EDT Surgery [facility] Operating Room [address] [place] [address] Nato Mejias MD [address] [place] [phone] PARATHYROIDECTOMY [27585 (CPT )] Surgery Details Date/Time Status Location OR Service Patient Class Case Class Case Type Trauma Case? 07/05/2025 7:30 AM Posted [facility] [address] [address] [place] [address] Outpatient Surgery E-Electi ve Panel 1 Procedure LRB Anes Op Region Wound Class Comments PARATHYROIDECTOMY N/A General Neck Class I/ Ian an Surgeon Surgeon Role Service Panel Nato Mejias MD Primary General Surgery 1 Minerva Harris MD Resident - Assisting 1 Special Needs NIM tube documented in this encounter Social History Tobacco [...] week 06/24/2025 How often do you attend [facility] or mu-ism services? Never 06/24/2025 Do you belong to any clubs o r organizations such as quaker groups, unions, fraternal or athletic groups, or [...] and heating? Not hard at all 06/24/2025 [facility] [place] [facility] Occupat ional [facility] - Occupational Stress [...] any time in the past 12 m [facility], were you homeless or living in a snf (including now)? No 06/24/2025 Utilities Answer Date [...] Sign Reading Time Taken Comments Blood Pressure 164/86 07/05/2025 9:45 AM EDT hydralazine admin Pulse 87 07/05/2025 9:45 AM EDT Temperature 36.2 C (97.1 F) 07/05/2025 9:35 AM EDT Respiratory Rate 17 07/05/2025 9:40 AM EDT Oxygen Saturation 93% 07/05/2025 9:4 5 AM EDT Inhaled Oxygen Concentration - - Weight 92.3 kg (203 lb 7.8 oz) 07/05/2025 6:20 AM EDT Height 167.6 cm (5' 6 ) [...] still experience constipation, you may try an olyj-rhj-nxbjzex mild stool softener or laxative such as [...] After hours, please call the hospital page leather production machine operator at and ask for the ???Endocrine surgery resident retail zone specialist. You may also request that your surgeon [...] 2 times a day. 120 tablet 07/05/2025 5 ibuprofen 600 MG tablet Take 1 tablet by mouth every 6 hours as needed for mild pain for up to 10 days. 40 tablet 07/06/2025 5 documented as of this encounter Miscellaneous Notes * Anesthesia PACU Signout - Antonio Cespedes MD - 07/05/2025 1:18 PM EDT Patient: [...] Conferring with anesthesia regarding current bp. * [facility] - Yuly Gaona RN - 07/05/2025 9:31 AM EDT Images from the original note were not included. 113 Post-Anesthesia and Postoperative Instructions ([place]) In order to have a fast and [...] Room or call the Emergency Department at [phone]. Smoking and its health risks ? Smoking [...] help quitting smoking, call the [employer] [place]'s Quitline toll free at or ask your doctor for help. Weight Management ? Weighing too much is not good for your health. Being overweight increases your risk of health conditions such as heart problems, high blood pressure, type 2 diabetes, and certain types of cancer. Being overweight can also increase your risk for osteoarthritis (op-stp-by-stb-CWEG-nph) (joint disease), sleep apnea (abnormal breathing at [...] risk of health problems. Ask your dietitian, conveyor loader or doctor about a weight loss goal that is right for you. 10/29 * Op Note - Nato Mejias MD - 07/05/2025 7:56 AM EDT Operative Note Date: 07/05/25 Location: [facility] OR Name: Bernice Cooney, : 1955, Diagnoses: Pre-op Diagnosis Primary hyperparathyroidism (CMS/HCC) Post-op Diagnosis Primary hyperparathyroidism (CMS/HCC) Procedure(s): Parathyroidectomy Attending Surgeon(s): * Nato Mejias - Primary Lehr Cutter(s): * Minerva Hraris MD - Resident - Assisting Anesthesia: General [...] imaging results. Assessment & Plan Primary hyperparathyroidism ([facility]) Patient to the OR 07/05/2025 for parathyroidectomy [...] parathyroidectomy. Consent reviewed. Nato Mejias MD, FACS forest nursery supervisor General, Endocrine & Metabolic Surgery documented in this encounter Plan of Treatment Upcoming Encounters Date Type Department Care Team (Late st Contact Info) Description 09/08/2025 11:20 AM EDT Office Visit [facility] [address], [address] [place] [address] Randy Osuna MD [address] [facility] [address] [place] [address] documented as of this encounter [...] 07/05/2025 8:14 AM EDT Primary hyperparathyroidism (CMS/HCC) VT EXPLORE PARATHYROID GLANDS 07/05/2025 7:13 AM EDT Primary hyperparathyroidism (CMS/HCC) Special Needs NIM tube INTRAOPERATIVE PTH Routine 07/05/2025 6:45 AM EDT POCT GLUCOSE METER UNSOLICITED RESULTS Routine 07/05/2025 6:00 AM EDT documented in this encounter Results * Calcium (07/05/2025 1:09 PM EDT) Total Calcium, Plasma 9.5 8.9 - 10.2 mg/dL 07/05/2025 1:45 PM EDT [facility] Blood Venous blood specimen / Unknown Venipuncture / Unknown 07/05/2025 1:09 PM EDT 07/05/2025 1:17 PM EDT us Nato Mejias MD LAB BLOOD ORDERABLES Fin al Result [facility] [address] [place] [id number] * (ABNORMAL) POCT glucose meter (07/05/2025 9:38 AM EDT) POCT Glucose 188(H) 74 - 99 mg/dL 07/05/2025 9:39 AM EDT [facility] Comment:Accuracy of a glucos e result [...] for testing. Comment 07/05/2025 9:39 AM EDT [facility] Eligibility Consultant ID Daksha Carrington 07/05/20 9:39 AM EDT HEALTHCARE LAB Device ID [id number] 07/05/2025 9:39 AM EDT [facility] Specimen Type POC Capillary 07/05/2025 9:39 AM EDT [facility] Blood Capillary blood specimen / Unknown 07/05/2025 9:38 AM EDT 07/05/2025 9:39 AM EDT us Nato Mejias MD LAB POINT OF CAR E TEST DOCKED DEVICE UNSOLICITED RESULTS Final Result Performing Organization Address [facility] de Phone Number [facility] [address] [place] [address] * Intraoperative PTH (07/05/2025 9:06 AM EDT) Intraoperative PTH 10 pg/mL 2024 9:27 AM EDT [facility] Time of Collection 0906 2024 9:27 AM EDT HEALTHCARE LAB Comment:10 Blood Venous blood specimen / Unknown 07/05/2025 9:06 AM EDT 07/05/2025 9:10 AM EDT Comment:Pre-op diagnosis: Primary hyperparathyroidism (CMS/HCC) [E21.0] Narrative [facility]ALTH[facility]ARE LAB - 07/05/2025 9:27 AM EDT Intraoperative [...] ORDERABLES Fin al Result Performing Organization Address [facility] Co de Phone Number [facility] [address] [place] [address] * Intraoperative PTH (07/05/2025 9:01 AM EDT) Intraoperative PTH 12 pg/mL 08/18/ 2025 9:22 AM EDT [facility]ALTHCARE LAB Time of Collection 0901 2024 9:22 AM EDT [facility] Comment:5 Blood Venous blood specimen / Unknown 07/05/2025 9:01 AM EDT 07/05/2025 9:05 AM EDT Comment:Pre-op diagnosis: Primary hyperparathyroidism (CMS/HCC) [E21.0] Narrative [facility] - 07/05/2025 9:22 AM EDT Intraoperative [...] ORDERABLES Fin al Result Performing Organization Address [facility] de Phone Number [facility] [address] [place] [address] * Intraoperative PTH (07/05/2025 8:56 AM EDT) Intraoperative PTH 21 pg/mL 2024 9:19 AM EDT [facility] Time of Collection Immediate 2024 9:19 AM EDT [facility] Comment:Excision Blood Venous blood specimen / Unknown 07/05/2025 8:56 AM EDT 07/05/2025 9:02 AM EDT Comment:Pre-op diagnosis: Primary hyperparathyroidism (CMS/HCC) [E21.0] Narrative [facility] - 07/05/2025 9:19 AM EDT Intraoperative [...] ORDERABLES Fin al Result Performing Organization Address [facility] de Phone Number [facility] [address] [place] [address] * Surgical Pathology Exam (07/05/2025 8:14 AM EDT) Case Report Surgical Pathology Case: [id number] Authorizing Provider: Nato Mejias MD Collected: 07/05/202514 Ordering Location: [facility] Operating Room Received: 07/05/2025818 Pathologist: Harriet Crocker MD Intraop: Harriet Crocker MD Specimens: A) - Parathyroid, Biopsy right superior parathyroid. B) - Parathyroid, Right inferior parathyroid gland. C) - Parathyroid, Left inferior parathyroid gland. D) - Parathyroid, Left superior parathyroid gland. E) - Neck, Superficial neck fat. F) - Neck, Left neck fat. 12:40 PM EDT [facility] Final Diagnosis A. RIGHT SUPERIOR [...] - BENIGN ADIPOSE TISSUE. 12:40 PM EDT [facility] at 1240 EDT Comment:This is an appended report. These results have been appended to a previously preliminary verified report. Clinical Information Primary hyperparathyroidism (CMS/HCC) [E21.0] 12:40 PM EDT [facility] Comment: This is an appended [...] FSD: HYPERCELLULAR PARATHYROID (0.21G) 12:40 PM EDT [facility] Comment:Corrected result: Pr eviously reported as [...] cassette F1. Cold Time: <1m Rose Gtz 12:40 PM EDT [facility] Comment:This is an appended report. These results have been appended to a previously preliminary verified report. Note: A resident was involved in the service. I attest I examined the relevant preparations for the specimens and confirmed the diagnosis or interpretation. 12:40 PM EDT [facility] Comment:This is an appended report. [...] EDT Comment:Pre-op diagnosis: Primary hyperparathyroidism (CMS/HCC) [E21.0] Nato Mejias MD LAB PATHOLOGY ORDERABLES Final Result [facility] [address] [place] [address] * Intraoperative PTH (07/05/2025 6:45 AM EDT) Pathologist [facility] Intraoperative PTH 79 pg/mL 2024 7:16 AM EDT HEALTHCARE LAB Time of Collection 0630 2024 7:16 AM EDT [facility] Blood Venous blood specimen / Unknown Venipuncture / Unknown 07/05/2025 6:45 AM EDT 07/05/2025 6:58 AM EDT [facility] - 07/05/2025 7:16 AM EDT [...] assay. Nato Mejias MD LAB BLOOD ORDERABLES Fin al Result Performing Organization Address City/[facility]/ZIP Co de Phone Number [facility] [address] [place] [address] * (ABNORMAL) POCT glucose meter (07/05/2025 6:00 AM EDT) Pathologist [facility] POCT Glucose 178(H) 74 - 99 mg/dL 07/05/2025 6:02 AM EDT [facility]ALTH[facility]ARE LAB Comment:Accuracy of a glucos e [...] for testing. Comment 07/05/2025 6:02 AM EDT [facility] Eligibility Consultant ID Cece Duffy 6:02 AM EDT [facility] Device ID [id number] 07/05/2025 6:02 AM EDT [facility]ALTH[facility]ARE LAB Specimen Type POC Capillary 07/05/2025 6:02 AM EDT [facility] Blood Capillary blood specimen / Unknown 07/05/2025 6:00 AM EDT 07/05/2025 6:02 AM EDT us Nato Mejias MD LAB POINT OF CAR E TEST DOCKED DEVICE UNSOLICITED RESULTS Final Result [facility] [address] [place] [id number] documented in this encounter Visit Diagnoses Diagnosis Primary hyperparathyroidism (CMS/HCC)- Primary Primary hyperparathyroidism Primary hyperparathyroidism (CMS/HCC) Primary hyperparathyroidism documented in this encounter Admitting Diagnoses Diagnosis Primary hyperparathyroidism (CMS/HCC) Primary hyperparathyroidism documented in this encounter Administered Medications Inactive Administered Medications - up to 3 most recent administrations Medication Order MAR Action Action Date Dose Rate Site acetaminophen (Tylenol) 160 MG/5ML solution 960 mg 960 mg, Oral, Every 6 hours PRN, Starting on Sat07/05/25 at 1010, Until Sat07/05/25 at 1530, Routine, mild pain Given 07/05/2025 10:31 AM EDT 960 mg bupivacaine PF (Marcaine) 0.25 % injection As needed, Starting on Sat07/05/25 at 0748, Until Sat07/05/25 at 0932, Routine, Intraprocedure Given 07/05/2025 7:48 AM EDT 20 mL Oth er bupivacaine-EPINEPHrine PF (Marcaine w/EPI) 0.25% -[id number] injection As needed, Starting on Sat07/05/25 at 0749, Until Sat07/05/25 at 0932, Routine, Intraprocedure Given 07/05/2025 7:49 AM EDT 8 mL Oth er calcium carbonate (Tums) chewable tablet 2,000 mg [...] line care thrombin (recombinant) (Recothrom) topical solution As needed, Starting on Sat07/05/25 at 0909, Until Sat07/05/25 at 0932, Routine Given 07/05/2025 9:09 AM EDT 5,000 Units documented in this encounter Active and Recently [...] Comment: Neck) bupivacaine-EPINEPHrine PF (Marcaine w/EPI) 0.25% -[id number] injection (CANCELED) As needed, Starting on Sat07/05/25 [...] documented as of this encounter Care Teams Elderly Companion Relationship Specialty Start Date End Date Piotr Eason MD PCP - General Family Medicine 05/05/25 documented as of this encounter
--- OUTSIDE RECORDS SUMMARY | 2025-07-22 11:00 | XMS_ITS | Encounter Summary ---
Author Organization Healthcare Address [address] [place] [address] Care Team Providers Care Electrical Assemblies Supervisor Name Role Phone Piotr Eason MD Primary Care Provider Alma vailable Encounter Details Date Type Department Care Team (Latest Contact Info) Description 07/22/2025 11:00 AM EDT Office Visit Medical Office Building Surgical Specialties [address] [facility], [address] [place] [address] Nato Mejias MD [address] [place] [address] S/P subtotal parathyroidectomy (Primary Dx) Social History Tobacco Use Types [...] often do you attend chur ch or mormon services? Never 06/24/2025 Do you belong to [...] and heating? Not hard at all 06/24/2025 [facility] - Occupational Stress [...] any time in the past 12 m [facility], were you homeless or living in a nursing home (including now)? No 06/24/2025 Utilities Answer [...] Sign Reading Time Taken Comments Blood Pressure 118/77 07/22/2025 10:40 AM EDT Pulse 71 07/22/2025 10:40 AM EDT Temperature 36.8 C (98.2 F) 07/22/2025 10:40 AM EDT Respiratory Rate 18 07/22/2025 10:40 AM EDT Oxygen Saturation 95% 07/22/2025 10:40 AM EDT Inhaled Oxygen Concentration - - Weight 92.6 kg (204 lb 2.3 oz) 07/22/2025 10:40 AM EDT Height 167.6 cm (5' 6 ) 07/22/2025 10:40 AM EDT Body Mass Index 32.95 07/22/2025 10:40 AM EDT documented in this encounter Miscellaneous Notes * Progress Notes - Paolo Hinton - 07/22/2025 11:[address] Osuna: We had the pleasure of seeing your patient Bernice Cooney back in clinic today 2 weeks after undergoing parathyroidectomy for primary hyperparathyroidism. Intraoperatively, we found four hyperplastic glands. Intraoperative PTH levels dropped appropriately. The baseline PTH was 79. The final PTHwas 10. We did not have problems with nerve function. No parathyroid(s) were autotransplanted. Patient reports that her preoperative symptoms (bone pain, fatigue, memory loss, muscle weakness) have resolved. Her only complaint is new-onset bilateral lower extremity muscle cramps. She denies any fever, persistent neck pain, or voice changes. Pathology: Final Diagnosis (no units) Date/Time Value 07/05/2025 0814 A. RIGHT SUPERIOR PARATHYROID, BIOPSY: - PARATHYROID [...] NECK FAT, EXCISION - BENIGN ADIPOSE TISSUE. The patient denies voice changes and dysphagia}. She does endorse postoperative muscle cramps in both legs. Given her new-onset leg cramps, we will order a CMP with PTH and Magnesium to evaluate. The patient is currently taking Tums 2000mg bid, calcium with vitamin D 50 mcg (2000UT) once daily,and magnesium 400mg BID. On exam, the incision is healing nicely. There is no evidence of hematoma, seroma or infection. Thevoice sounds normal. Overall, Ms. Cooney is recovering nicely from surgery. Assessment & Plan S/P subtotal parathyroidectomy Orders: Magnesium; Future Comprehensive Metabolic Panel, Plasma; Future PTH Intact Total; Future Medication therapy: Tums - maintain current dose, taking additional doses when muscle cramps occur. Calcium with vitamin D - maintain current dose Magnesium - maintain current dose Patient has a scheduled appointment with her step finisher next month, so she will require no scheduled follow up. We look forward to seeing the patient back on an as needed basis. We recommend checking serum calcium yearly during routine labs with her PCP. If the calcium is noted to be elevated in the future, we are happy to see her back in clinic. Please feel free to contact us with any concer ns or questions. It has been a pleasure taking care of Ms. Cooney, and we wish her the best. Paolo Hinton, MS4 Cosigned by Nato Mejias MD at 07/22/2025 5:46 PM EDT Associated attestation - Nato Mejias MD - 07/22/2025 5:46 PM EDT I saw and evaluated the patient with the medical/SCOOP OPERATOR/PA student. I discussed the case with the medical/SCOOP OPERATOR/PA student and agree with the findings and plan as documented. I personally performed the Examand Medical Decision Making. 70F with primary hyperparathyroidism. S/p subtotal parathyroidectomy 07/05/25. Doing clinically well. Feels marked improvement in fatigue and bone pain. She does endorse muscle cramps. Remarkably she notes improvement in her hearing but I'm not sure how that can be attributed to her parathyroidectomy. Baseline PTH 79 drop to 10. Calcium preop was 11.1 and 9.5 the morning following operation. Pathology reviewed and confirms four parathyroid glands identified with 3.5 resected. Labs today 07/22/25: Cr 0.94, Ca 8.2, Alb 4.2, AlkPhos 98, Mg 2.3, PTH 26. Her calcium is low and could be contributing to her muscle cramps. She has good parathyroid function but maybe slight insuffiencey in the short-term, which should all level out. Instructed to take additional tums prn for symptoms. - Follow-up with medical endocrinology as scheduled 09/08/25. - Return to clinic as needed. Thank you, Nato Mejias MD, FACS quality technician fiberglass General, Endocrine & Metabolic Surgery Parathyroidectomy Postop Instructions Calcium Wean: Continue tums until symptoms (muscle cramps) resolve. After several days without symptoms, ok to begin to wean tums. Currently you are taking: Calcium carbonate, 1000mg, twice daily. Vitamin D, 2000u, daily. Starting today: Cut calcium in half to 1000mg daily or 500mg twice daily, whichever you prefer. Continue Vitamin D, 2000u, daily. If no symptoms of numbness/tingling of fingers or around lips after 1 week on this dose, reduce to the following: Calcium carbonate, 500-600mg, daily. Vitamin D, 1000u, daily. There are many combination pills, gummy vitamins, multivitamins with these doses and you can take whatever one is your preference. You should continue this indefinitely for bone health. Scar care: Protect scar from sun, use sunscreen for the next 6-12 months. The sun will easily burn a scar causing it to darken. Massage scar area in circular motion to soften scar tissue several times daily if desired. Use fullneck range of motion to prevent stiffness. Ok to use moisturizer on the scar or any other scar treatments you would like including vitamin E oil or silicone wound strips. Follow-up: You will have a follow-up appointment with medical endocrinology office in 6 months after your operation with labs. documented in this encounter Plan of Treatment Upcoming Encounters Date Type Department Care Team (Late st Contact Info) Description 09/08/2025 11:20 AM EDT Office Visit [facility] [employer] [facility] [address], [address] [place] [address] Randy Osuna MD [address] [facility] [address] [place] [address] documented as of this encounter Results * PTH Intact Total (07/22/2025 11:31 AM EDT) PTH Intact Total 26 9 - 77 pg/mL 07/22/2025 5:25 PM EDT [facility] Blood Venous blood specimen / Unknown Venipuncture / Unknown 07/22/2025 11:31 AM EDT 07/22/2025 11:31 AM EDT Narrative [facility] - 07/22/2025 5:25 PM EDT Assay performed by immunoassay at the [facility]. Performed on Alex Clam Dredger chemiluminescent immunoassay, tractable to the World Health Organization's first international standard for PTH from the NIBSC, Code 79/500. Results obtained from different test methods or kits cannot be used interchangeably. us Nato Mejias MD LAB BLOOD ORDERABLES Fin al Result [facility] [address] [place] [address] * (ABNORMAL) Comprehensive Metabolic Panel, Plasma (07/22/2025 11:31 AM EDT) Glucose, Plasma 134(H) 74 - 99 mg/dL 07/22/2025 3:36 PM EDT [facility] BUN, Plasma 11 8 - 23 mg/dL 07/22/2025 3:36 PM EDT [facility] Creatinine, Plasma 0.94 0.60 - 1.10 mg/dL 07/22/2025 3:36 PM EDT [facility] BUN/Creatinine Ratio 12 07/22/2025 3:36 PM EDT [facility] Sodium, Plasma 140 136 - 145 mmol/L 07/22/2025 3:36 PM EDT [facility] Potassium, Plasma 4.9 3.6 - 4.9 mmol/L 07/22/2025 3:36 PM EDT [facility] Chloride, Plasma 101 97 - 107 mmol/L 07/22/2025 3:36 PM EDT [facility] CO2, Plasma 22 22 - 29 mmol/L 07/22/2025 3:36 PM EDT [facility] Anion Gap 17(H) 6 - 16 mmol/L 07/22/2025 3:36 PM EDT [facility] Total Calcium, Plasma 8.2(L) 8.9 - 10.2 mg/dL 07/22/2025 3:36 PM EDT [facility] Total Protein 7.1 6.3 - 7.9 g/dL 07/22/2025 3:36 PM EDT [facility] Albumin, Plasma 4.2 3.5 - 5.2 g/dL 07/22/2025 3:36 PM EDT [facility] AST, Plasma 27 10 - 35 U/L 07/22/2025 3:36 PM EDT [facility] ALT, Plasma 20 10 - 35 U/L 07/22/2025 3:36 PM EDT [facility] Alkaline Phosphatase, Plasma 98 46 - 142 U/L 07/22/2025 3:36 PM EDT [facility] Total Bilirubin, Plasma 0.3 0.2 - 1.1 mg/dL 07/22/2025 3:36 PM EDT [facility] eGFRcr 65.4 mL/min/1.7 3m*2 07/22/2025 3:36 PM EDT [facility] Comment:Reported eGFRcr in m L/min/1.73m2 is based the CKD-EPI 2020 equation that does not use a race coefficient. Blood Venous blood specimen / Unknown Venipuncture / Unknown 07/22/2025 11:31 AM EDT 07/22/2025 11:31 AM EDT us Nato Mejias MD LAB BLOOD ORDERABLES Fin al Result Performing Organization Address City/[facility] de Phone Number [facility] [address] [place] [address] * Magnesium (07/22/2025 11:31 AM EDT) Magnesium, Plasma 2.3 1.9 - 2.4 mg/dL 07/22/2025 3:36 PM EDT [facility] Blood Venous blood specimen / Unknown Venipuncture / Unknown 07/22/2025 11:31 AM EDT 07/22/2025 11:31 AM EDT us Nato Mejias MD LAB BLOOD ORDERABLES Fin al Result Performing Organization Address [facility] de Phone Number [facility]ALTH[facility]ARE [facility] [address] [place] [address] documented in this encounter Visit Diagnoses Diagnosis S/P subtotal parathyroidectomy- Primary Other postprocedural status documented in this encounter Additional Health Concerns Assessment Noted Time A fall risk assessment has been complete d for the patient 07/22/2025 10:39 AM EDT A Body Mass Index follow-up plan has been documented for the patient 07/22/2025 5:48 PM EDT documented as of this encounter Care Teams Electrical Assemblies Supervisor Relationship Specialty Start Date End Date Piotr Eason MD PCP - General Family Medicine 05/05/25 documented as of this encounter
--- OUTSIDE RECORDS SUMMARY | 2025-08-09 15:20 | XMS_ITS | Encounter Summary ---
Author Organization Healthcare Address [address] [place] [address] Care Team Providers Care Manager Presentation Name Role Phone Piotr Eason MD Primary Care Provider Alma vailable Encounter Details Date Type Department Care Team (Latest Contact Info) Description 07/02/2025 Travel Social History Tobacco Use Types Packs/Day [...] week 06/24/2025 How often do you attend [facility] or uatsdin services? Never 06/24/2025 Do you belong to any clubs o r organizations such as faith groups, unions, fraternal or athletic groups, or [...] and heating? Not hard at all 06/24/2025 [facility] of Occupat ional Health - Occupational Stress [...] any time in the past 12 m [facility], were you homeless or living in a custodial (including now)? No 06/24/2025 Utilities Answer Date [...] 09/08/2025 11:20 AM EDT Office Visit Professional [employer] [facility] [address], [address] [place] [address] Randy Osuna MD [address] [address] documented as of this encounter Visit Diagnoses Not on filedocumented in this encounter Additional Health Concerns Assessment Noted Time A fall risk assessment has been complete d for the patient 06/24/2025 9:00 AM EDT A Body Mass Index follow-up plan has been documented for the patient 06/24/2025 10:04 AM EDT documented as of this encounter Care Teams Manager Presentation Relationship Specialty Start Date End Date Piotr Eason MD PCP - General Family Medicine 05/05/25 documented as of this encounter
--- OUTSIDE RECORDS SUMMARY | 2025-08-09 15:20 | XMS_ITS | Encounter Summary ---
Author Organization Healthcare Address [address] [place] [address] Care Team Providers Care Chrome Cleaner Name Role Phone Piotr Eason MD Primary Care Provider Alma vailable Encounter Details Date Type Department Care Team (Latest Contact Info) Description 06/24/2025 Travel Social History Tobacco Use Types Packs/Day [...] How often do you attend chur or scientology services? Never 06/24/2025 Do you belong to any clubs o r organizations such as islam groups, unions, fraternal or athletic groups, or [...] and heating? Not hard at all 06/24/2025 [facility] Occupat ional Health - Occupational Stress [...] any time in the past 12 m [facility], were you homeless or living in a chcf (including now)? No 06/24/2025 Utilities Answer Date Recorded In the past 12 months has e electric, gas, oil, or water company threatened to shut off services in your home? No 06/24/2025 Comments No Sex and Gender Information Value Date Recorded Sex Assigned at Not on file Legal Sex Female 8:24 PM EDT Gender Identity Not on file Sexual Orientation Not on file documented as of this encounter Functional Status * AUDIT-C Score [...] Rob Conroy documented as of this encounter Plan of Treatment Upcoming Encounters Date Type Department Care Team (Late st Contact Info) Description 09/08/2025 11:20 AM EDT Office Visit [facility] [address], [address] [place] [address] Randy Osuna MD [address] [place] [address] [address] [place] [address] documented as of this encounter Visit Diagnoses Not on filedocumented in this encounter Additional Health Concerns Assessment Noted Time A fall risk assessment has been complete d for the patient 06/24/2025 9:00 AM EDT A Body Mass Index follow-up plan has been documented for the patient 06/24/2025 10:04 AM EDT documented as of this encounter Care Teams Chrome Cleaner Relationship Specialty Start Date End Date Piotr Eason MD PCP - General Family Medicine 05/05/25 documented as of this encounter
--- OUTSIDE RECORDS SUMMARY | 2025-08-09 15:20 | XMS_ITS | Encounter Summary ---
Author Organization Healthcare Address [address] [place] [address] Care Team Providers Care Battery Charger Tester Name Role Phone Piotr Eason MD Primary Care Provider Alma vailable Encounter Details Date Type Department Care Team ([facility] st Contact Info) Description 06/24/2025 Orders Only External Location [address] [place] [address] Provider, External Social History Tobacco Use Types [...] week 06/24/2025 How often do you attend [facility] or yazidi services? Never 06/24/2025 Do you belong to any clubs o r organizations such as samaritan groups, unions, fraternal or athletic groups, or [...] and heating? Not hard at all 06/24/2025 [facility] of Occupat ional [facility] - Occupational Stress Questionnaire Answer Date [...] any time in the past 12 m [facility], were you homeless or living in a residential (including now)? No 06/24/2025 Utilities Answer Date Recorded In the past 12 months has e [employer], gas, oil, or water company threatened to [...] AM EDT Office Visit Professional [facility] [address], [address] [place] [address] [place] [address] [place] [address] [address] [place] [address] documented as of this encounter Procedures Procedure Name Priority Date/Time Associated Diagnosis Comments POC ULTRASOUND 06/24/2025 documented in this encounter Results * POC Imaging (06/24/2025) Anatomical Region Laterality Modality Pelvis Other 06/24/2025 us External Provider IMG POINT OF CARE ULTRASOUND F inal Result documented in this encounter Visit Diagnoses Not on filedocumented in this encounter Additional Health Concerns Assessment Noted Time A fall risk assessment has been complete d for the patient 06/24/2025 9:00 AM EDT A Body Mass Index follow-up plan has been documented for the patient 06/24/2025 10:04 AM EDT documented as of this encounter Care Teams Battery Charger Tester Relationship Specialty Start Date End Date Piotr Eason MD PCP - General Family Medicine 05/05/25 documented as of this encounter
--- OUTSIDE RECORDS SUMMARY | 2025-08-09 15:20 | XMS_ITS | Patient Health Record ---
Author Organization [facility] Address [address] [facility] [address] [place] [address] Care Team Providers Care Road Mixer Operator Name Role Phone Jose Kraft Primary [...] review and pick correct strength-formulati on from [employer] options. If intended option is not shown, [...] review and pick correct strength-formulati on from [employer] options. If intended option is not shown, [...] Problem Type II diabetes mellitus without complication (182380062) Type 2 diabetes mellitus without complications (E11.9) Active confirmed Problem Rheumatoid arthritis (60413358) Rheumatoid arthritis without rheumatoid factor, right hand (M06.041) Active confirmed Problem Rheumatoid arthritis (64372189) Rheumatoid arthritis without rheumatoid factor, left hand (M06.042) Active confirmed Problem Osteoarthritis of knee (052164982) Unilateral primary osteoarthritis, left knee (M17.12) Active confirmed Problem Hyperlipidemia (80524312) Hyperlipemia, idiopathic familial (E78.5) Active confirmed Problem Essential hypertension (79134780) Hypertension, essential (I10) Active confirmed Problem Obesity (723468342) Obesity (BMI 30-39.9) (E66.9) Active confirmed Problem Constipation (60876338) Constipation, unspecified constipation type (K59.00) Active confirmed Problem Sciatica (67304804) Right sided sciatica (M54.31) Active confirmed Problem Rotator cuff tear arthropathy (545436745) Rotator cuff tear arthropathy of right shoulder (M12.811) Active confirmed Problem Osteopenia (disorder) (837105619) Osteopenia determined by x-ray (M85.80) Active confirmed Problem Postmenopausal state (53445963) Asymptomatic menopause (Z78.0) Active confirmed Encounters Encounter Location Date Provider Diagnosis [facility] ANGELINA [address] [place] [address] [facility] [address] [place] [address] 02/20/2025 Provider Migration Plan Of Treatment Pending Test Test Name Order Date Urinalysis 04/17/2016 Urinalysis 08/16/2020 N-CRYSTAL (Antinuclear Antibody) 09/27/2007 Rapid Strep 07/04/2007 Microalbumin (In-House) 12/06/2015 Microalbumin (In-House) 04/17/2016 Microalbumin (In-House) 02/21/2015 Microalbumin (In-House) 04/25/2018 N-CMP 10/31/2009 N-Lipid Panel 10/31/2009 N-HbA1C 12/23/2009 Physical Therapy 08/08/2017 Mammogram : Bilateral 02/17/2008 Mammogram : Bilateral 08/16/2020 Dietary Consult 03/26/2011 H-CBC with AUTO DIFF 01/23/2012 H-CMP 03/19/2016 H-CMP 01/23/2012 H-LIPID PANEL 01/23/2012 H-HGBA1C 01/23/2012 H-HGBA1C 03/19/2016 H-TSH 01/23/2012 H-RHEUMATOID ARTHRITIS PROFILE 2 H-SED RATE 01/23/2012 C-CBC 08/25/2019 C-CBC 02/21/2015 C-CBC 08/26/2010 C-Sed Rate (ESR) 02/21/2015 C-CMP 02/21/2015 C-CMP 01/10/2021 C-CMP 08/25/2019 C-CMP 08/26/2010 C-LIPID PANEL 08/26/2010 C-LIPID PANEL 02/21/2015 C-HGBA1C 02/21/2015 C-HGBA1C 08/26/2010 C-CCP IGG Antibodies 05/07/2011 VENIPUNCT, ROUTINE* 12/06/2015 M-Erythrocyte Sedimentation Rate 021 M-Vitamin D 25 Hydroxy 11/21/2021 M-Vitamin D 25 Hydroxy 08/08/2021 Insurance Providers Payer Name Payer Address Payer Phone Subscriber Number Group Number Insured Name Patient Relationship to Insured Coverage Start Date Coverage End Date MEDICARE PART B [address] [phone] [id number] Bernice Cooney Self - patient is the insured [facility] MEDICARE SUPPLEMENT INSURANCE [address] [place] [phone] [id number] Bernice Cooney Self - patient is the insured Medical (General) History Medical History History ICD Code rheumatoid arthritis hypercholestrolemia hormone replacement therapy Esophageal reflux hypertension type II diabetes Colonoscopy 2010 at [facility]... normal. Repeated at [facility] 10/07 with tubular adenomas Normal mammogram 04/03 and 08/06 and 10/07 20 and 10/2021 osteopenia on DEXA scan Apri l 2016 - slightly worse September 06, alendronate started Surgical History Surgery Date(Month/Year) Cholecystectomy 2 c-sections total hysterectomy appendectomy hernia repair colonoscopy 2019 Hospitalization History Reason Date(Month/Year) surgeries
--- OUTSIDE RECORDS SUMMARY | 2025-08-09 15:20 | XMS_ITS | Encounter Summary ---
Author Organization Healthcare Address [address] [place] [address] Care Team Providers Care Er Nurse Name Role Phone Piotr Eason MD Primary Care Provider Alma vailable Encounter Details Date Type Department Care Team ([facility] Contact Info) Description 06/23/2025 Abstract Medical Office Building Surgical Specialties [address] [facility], [address] [place] [address] Rob Conroy Social History Tobacco Use Types Packs/Day Years [...] week 06/24/2025 How often do you attend [facility] or tenriism services? Never 06/24/2025 Do you belong to any clubs o r organizations such as zoroastrianism groups, unions, fraternal or athletic groups, or [...] and heating? Not hard at all 06/24/2025 [facility]at [facility] - Occupational Stress Questionnaire Answer Date Recorded [...] any time in the past 12 m onths, were you homeless or living in a [place] [facility] [place] facility (including now)? No 06/24/2025 Utilities Answer Date Recorded In the past 12 months has th e [employer], gas, oil, or water company threatened to [...] 09/08/2025 11:20 AM EDT Office Visit Professional [facility] [address], [address] [place] [address] Randy Osuna MD [address] [facility] [address] [place] [address] documented as of this encounter Visit Diagnoses Not on filedocumented in this encounter Additional Health Concerns Assessment Noted Time A fall risk assessment has been complete d for the patient 05/05/2025 2:58 PM EDT A Body Mass Index follow-up plan has been documented for the patient 05/05/2025 3:28 PM EDT documented as of this encounter Care Teams Er Nurse Relationship Specialty Start Date End Date Piotr Eason MD PCP - General Family Medicine 05/05/25 documented as of this encounter
--- OUTSIDE RECORDS SUMMARY | 2025-08-09 15:21 | XMS_ITS | Encounter Summary ---
Author Organization Healthcare Address [address] [place] [address] Care Team Providers Care Rug Scratcher Name Role Phone Piotr Eason MD Primary Care Provider Alma vailable Encounter Details Date Type Department Care Team (Latest Contact Info) Description 07/22/2025 Travel Social History Tobacco Use Types Packs/Day [...] often do you attend [facility] or latter-day services? Never 06/24/2025 Do you belong to any clubs o r organizations such as taoism groups, unions, fraternal or athletic groups, or [...] and heating? Not hard at all 06/24/2025 [facility] of Occupat ional Health - Occupational Stress [...] any time in the past 12 m [facility], were you homeless or living in [...] 09/08/2025 11:20 AM EDT Office Visit [facility] [address], [address] [place] [address] Randy Osuna MD [address] [address] documented as of this encounter Visit Diagnoses Not on filedocumented in this encounter Additional Health Concerns Assessment Noted Time A fall risk assessment has been complete d for the patient 07/22/2025 10:39 AM EDT A Body Mass Index follow-up plan has been documented for the patient 07/22/2025 5:48 PM EDT documented as of this encounter Care Teams Rug Scratcher Relationship Specialty Start Date End Date Piotr Eason MD PCP - General Family Medicine 05/05/25 documented as of this encounter
--- OUTSIDE RECORDS SUMMARY | 2025-08-09 15:21 | XMS_ITS | Encounter Summary ---
Author Organization Healthcare Address [address] [place] [address] Care Team Providers Care Silvering Department Supervisor Name Role Phone Piotr Eason MD Primary Care Provider Alma vailable Encounter Details Date Type Department Care Team (Latest Contact Info) Description 07/05/2025 Travel Social History Tobacco Use Types Packs/Day [...] often do you attend [facility] or shinto services? Never 06/24/2025 Do you belong to any clubs o r organizations such as mu-ism groups, unions, fraternal or athletic groups, or [...] and heating? Not hard at all 06/24/2025 [facility] [place] of Occupat ional Health - Occupational Stress [...] time in the past [address] [facility], were you homeless or living [...] Month) No 07/05/2025 6:21 AM EDT Jorge Otriz RN 6. Suicidal Behavior (Lifetime) No 6:21 AM EDT Gaby Ortiz RN documented as of this encounter Plan of Treatment Upcoming Encounters Date Type Department Care Team (Late st Contact Info) Description 09/08/2025 11:20 AM EDT Office Visit [facility] [address] [place] [address], [address] [place] [address] Randy Osuna MD [address] [facility] [address] [place] [address] documented as of this encounter Visit Diagnoses Not on filedocumented in this encounter Additional Health Concerns Assessment Noted Time A fall risk assessment has been complete d for the patient 06/24/2025 9:00 AM EDT A Body Mass Index follow-up plan has been documented for the patient 06/24/2025 10:04 AM EDT documented as of this encounter Care Teams Silvering Department Supervisor Relationship Specialty Start Date End Date Piotr Eason MD PCP - General Family Medicine 05/05/25 documented as of this encounter
--- OUTSIDE RECORDS SUMMARY | 2025-08-09 15:21 | XMS_ITS | Encounter Summary ---
Author Organization Healthcare Address [address] [place] [address] Care Team Providers Care Development Eng Name Role Phone Piotr Eason MD Primary Care Provider Alma vailable Encounter Details Date Type Department Care Team (Late st Contact Info) Description 05/18/2025 Results Follow-Up [facility] [address] [place] [address] Randy Osuna MD [address] [facility] [address] [place] [address] Social History Tobacco Use Types [...] often do you attend chur ch or faith services? Never 06/24/2025 Do you belong to any clubs o r organizations such as rastafarian groups, unions, fraternal or athletic groups, or [...] heating? Not hard at all 06/24/2025 [facility] of Occupat ional Health - Occupational Stress [...] any time in the past 12 m [facility], were you homeless or living in a halfway (including now)? No 06/24/2025 Utilities Answer Date [...] of Assessment Author 0 06/24/2025 8:47 AM Rob Pereira * Question Answer Date of Assessment Author Q1: How often do you have a drink containing alcohol? Never 06/24/2025 8:47 AM Rob Pereira Q2: How many drinks containing alcohol do you have on a typical day when you are drinking? Patient does not drink 06/24/2025 8:47 AM Rob Pereira Q3: How often do you have six or more drinks on one occasion? Never 06/24/2025 8:47 AM Rob Pereira * Calculated C-SSRS Risk Score (Lifetime/Recent) Answer Date of Assessment Author No Risk Indicated 07/05/2025 6:21 AM Gaby Medel RN * Question Answer Date of Assessment Author 1. Wish to be (Past 1 Month) No 025 6:21 AM Gaby Medel RN 2. Non-Specific Active Suici leticia Thoughts (Past 1 Month) No 07/05/2025 6:21 AM Jorge Medel RN 6. Suicidal Behavior (Lifetime) No 6:21 AM EDT Gaby Ortiz RN documented as of this encounter Plan of Treatment Upcoming Encounters Date Type Department Care Team (Late st Contact Info) Description 09/08/2025 11:20 AM EDT Office Visit [facility] [email or web address] [facility] [address], [address] [place] [address] Randy Osuna MD [address] [facility] [address] [place] [address] documented as of this encounter Visit Diagnoses Not on filedocumented in this encounter Additional Health Concerns Assessment Noted Time A fall risk assessment has been complete d for the patient 05/05/2025 2:58 PM EDT A Body Mass Index follow-up plan has been documented for the patient 05/05/2025 3:28 PM EDT documented as of this encounter Care Teams Development Eng Relationship Specialty Start Date End Date Piotr Eason MD PCP - General Family Medicine 05/05/25 documented as of this encounter
--- OUTSIDE RECORDS SUMMARY | 2025-08-09 15:21 | XMS_ITS | Encounter Summary ---
Author Organization Healthcare Address [address] [place] [address] Care Team Providers Care International Trade Specialist Name Role Phone Piotr Eaosn MD Primary Care Provider Alma vailable Encounter Details Date Type Department Care Team ([facility] Contact Info) Description 07/21/2025 [facility] [address] [facility], [address] [place] [address] Rob Conroy Social History Tobacco [...] often do you attend chur ch or gnosticist services? Never 06/24/2025 Do you belong to any clubs o r organizations such as orthodoxy groups, unions, fraternal or athletic groups, or [...] and heating? Not hard at all 06/24/2025 [facility] of Occupat ional Health - Occupational Stress [...] were you homeless or living in a half-way (including now)? No 06/24/2025 Utilities Answer Date [...] 09/08/2025 11:20 AM EDT Office Visit [facility] [address], [address] [place] [address] Randy Osuna MD [address] [facility] [address] [place] [address] documented as of this encounter Visit Diagnoses Not on filedocumented in this encounter Additional Health Concerns Assessment Noted Time A fall risk assessment has been complete d for the patient 06/24/2025 9:00 AM EDT A Body Mass Index follow-up plan has been documented for the patient 06/24/2025 10:04 AM EDT documented as of this encounter Care Teams International Trade Specialist Relationship Specialty Start Date End Date Piotr Eason MD PCP - General Family Medicine 05/05/25 documented as of this encounter
--- OUTSIDE RECORDS SUMMARY | 2025-08-09 15:21 | XMS_ITS | Encounter Summary ---
Author Organization Healthcare Address [address] [place] [address] Care Team Providers Care E Commerce Marketing Manager Name Role Phone Piotr Eason MD Primary Care Provider Alma vailable Encounter Details Date Type Department Care Team (Late st Contact Info) Description 05/18/2025 Results Follow-Up [facility] [address] [place] [address] Randy Osuna MD [address] [facility] [address] [place] [address] Social History Tobacco Use Types [...] often do you attend chur ch or muslim services? Never 06/24/2025 Do you belong to any clubs o r organizations such as judaism groups, unions, fraternal or athletic groups, or [...] and heating? Not hard at all 06/24/2025 [facility] of Occupat ional Health - [...] any time in the past 12 m [facility], were you homeless or living in a intermediate (including now)? No 06/24/2025 Utilities Answer Date [...] Description 09/08/2025 11:20 AM EDT Office Visit [facility] [email or web address] [facility] [address], [address] [place] [address] Randy Osuna MD [address] [facility] [address] [place] [address] documented as of this encounter Visit Diagnoses Not on filedocumented in this encounter Additional Health Concerns Assessment Noted Time A fall risk assessment has been complete d for the patient 05/05/2025 2:58 PM EDT A Body Mass Index follow-up plan has been documented for the patient 05/05/2025 3:28 PM EDT documented as of this encounter Care Teams E Commerce Marketing Manager Relationship Specialty Start Date End Date Piotr Eason MD PCP - General Family Medicine 05/05/25 documented as of this encounter
--- OUTSIDE RECORDS SUMMARY | 2025-08-09 15:21 | XMS_ITS | Encounter Summary ---
Author Organization Healthcare Address [address] [place] [address] Care Team Providers Care Funeral Service Practitioner/Embalmer Name Role Phone Jose Kraft MD Primary Care Provider + [phone] Piotr Eason MD Primary Care Provider Alma vailable Encounter Details Date Type Department Care Team (Late st Contact Info) Description 09/28/2024 Orders Only External Location [address] [place] [address] Provider, External Social History Tobacco Use Types [...] Department Care Team (Late Contact Info) Description 09/08/2025 11:20 AM EDT [facility] [address], [address] [place] [address] Randy Osuna MD [address] [place] [address] documented as of this encounter Procedures Procedure Name Priority Date/Time Associated Diagnosis Comments NM OUTSIDE IMAGES 09/28/2024 9:22 AM EST documented in this encounter Results * NM OUTSIDE IMAGES (09/28/2024 9:22 AM EST) Anatomical Region Laterality Modality Nuclear Medicine 09/28/2024 9:22 AM EST us External Provider IMG NM PROCEDURES Final Result documented in this encounter Visit Diagnoses Not on filedocumented in this encounter Additional Health Concerns Assessment Noted Time A fall risk assessment has been complete d for the patient 09/18/2023 9:53 AM EDT A Body Mass Index follow-up plan has been documented for the patient 09/18/2023 10:21 AM EDT documented as of this encounter Care Teams Funeral Service Practitioner/Embalmer Relationship Specialty Start Date End Date Jose Kraft MD [address] [place] [address] PCP - General 03/31/21 05/04/25 Piotr Eason MD PCP - General Family Medicine 05/05/25 documented as of this encounter
--- OUTSIDE RECORDS SUMMARY | 2025-08-09 15:21 | XMS_ITS | Clinical Summary ---
Author Organization Address [address] [place] [address] Care Team Providers Care Application Support Administrator Name Role Phone Piotr Eason MD Primary Care Provider Alma vailable Allergies No known active allergies Medications alendronate (Fosamax) 35 MG tablet Take 1 tablet by mouth every 7 days. Takes weekly on Fridays. 3 Active atorvastatin (Lipitor) 20 MG tablet Take 1 tablet by mouth nightly. 3 Active Dilt-XR 240 MG 24 hr capsule Take 1 capsule by mouth nightly. 3 Active Premarin 0.625 MG tablet TAKE 1 TABLET 1 TIME EACH DAY 3 Active folic acid (Folvite) 1 MG tablet TAKE 1 TABLET 1 TIME EACH DAY 3 Active lansoprazole (Prevacid) [address] capsule TAKE 1 CAPSULE 1 TIME EACH DAY 3 Active lisinopril 20 MG tablet Take 1 tablet by mouth nightly. 3 Active meloxicam (Mobic) 15 MG tablet TAKE 1 TABLET 1 TIME EACH DAY FOR PAIN 3 Active methotrexate 2.5 MG tablet 8 tablets (20 mg total). 7 Active traMADol (Ultram) 50 MG tablet 3 Active metFORMIN (Glucophage) 500 MG tablet Take 2 tablets by mouth 2 times a day with meals. Active Multiple Vitamin (multivitamin) tablet Take 1 tablet by mouth daily. Active cholecalciferol (Vitamin D-3) 50 MCG (1999 UT) capsule Take 1 capsule by mouth daily. 30 capsule 1 5 09/03/20 25 Active acetaminophen (Tylenol) 500 MG tablet Take 2 tablets by mouth every 6 hours as needed for headaches for up to 13 days. 100 tablet 5 07/22/20 25 ibuprofen 600 MG tablet Take 1 tablet by mouth every 6 hours as needed for mild pain for up to 10 days. 40 tablet 5 07/22/20 25 calcium carbonate (Tums Ultra) 1000 MG chewable tablet Chew 2 tablets 2 times a day. 120 tablet 5 08/04/20 25 Active Problems Problem Noted Date Diagnosed Date Primary hyperparathyroidism 06/24/2025 Assessment & Plan (06/24/2025 10:44 AM EDT): Constipation 06/23/2025 Hyperlipemia, idiopathic familial 06/23/2025 Obesity (BMI 30-39.9) 06/23/2025 Osteopenia 06/23/2025 Primary hypertension 06/23/2025 Rheumatoid arthritis involving hand 06/23/2025 Rotator cuff tear arthropathy 06/23/2025 Sciatica, right side 06/23/2025 Type 2 diabetes mellitus without complications 0 06/23/2025 Unilateral primary osteoarthritis, left knee 04/2025 Complete tear of right rotator cuff 07/11/2017 Encounters Date Type Department Care Team Description 07/22/2025 11:00 AM EDT Office Visit Medical [facility] [address], [address] [place] [address] Nato Mejias MD S/P subtotal parathyroidectomy (Primary Dx) 07/22/2025 Travel 07/21/2025 Abstract Medical Office Building Surgical Special[facility] [address], [address] [place] [address] Rob Conroy 07/05/2025 7:30 AM EDT - 07/05/2025 9:55 AM EDT Surgery [facility] S Operating Room [address] [place] [address] Nato Mejias MD PARATHYROIDECTOMY [04145 (CPT )] 07/05/2025 7:25 AM EDT Anesthesia Event [facility] S Operating Room [address] [place] [address] Boogie Herrera MD 07/05/2025 5:22 AM EDT - 07/05/2025 1:30 PM EDT Hospital Encounter [facility] Operating Room [address] [place] [address] Nato Mejias MD Primary hyperparathyroidism (CMS/HCC) Discharge Disposition: Home or Self Care 07/05/2025 Travel 07/02/2025 2:00 PM EDT Pre-Admission Testing [facility] Anest[facility] [address] [place] [address] 07/02/2025 Travel 06/24/2025 9:00 AM EDT Consult Medical Office [facility] [address], [address] [place] [address] Nato Mejias MD Primary hyperparathyroidism (CMS/HCC) (Primary Dx) 06/24/2025 Orders Only External Location [address] [place] [address] Provider, External 06/24/2025 Travel 06/23/2025 Abstract Medical Office [facility] Surgical [facility] [address], [address] [place] [address] Rob Conroy 05/18/2025 Results Follow-Up [facility] Endocr[facility]ology [address] [place] [address] Randy Osuna MD 05/18/2025 Results [facility] [address] [place] [address] Randy Osuna MD 05/10/2025 Orders Only [facility] [address] [place] [address] Randy Osuna MD from Last 3 Months Immunizations Immunization Administration Dates Next Due DTaP, 5 pertussis antigens 12/13/2016 Influenza, High-dose, Split Virus, Trivalent, Injectable, preservative free 08/08/2021,09/27/2020 Influenza, Split (incl. timoteo fied surface antigen) 08/24/2014,08/24/2013,08/01/2012,08/26,09/09/2009,09/22/2008,09/29/2007 Influenza, high-dose, quadrivalent 09/18/2023 Influenza, injectable, quadrivalent 08/01/2018,0 08/08/2017 Influenza, injectable, quadr ivalent, preservative free 08/22/2022,08/25/2019 Influenza, seasonal, injecta ble, preservative free 09/08/2024 Novel [id number], all formulations 10/10/2009 Pneumococcal Conjugate PCV 13 12/13/2016 Pneumococcal Polysaccharide PPV23 09/27/2020 Tdap 10/25/2016 Zoster, live 12/13/2016,10/25/2016 Family History Medical History Relation Name Comments Conversions - Other Father Patient' s father is Pneumonia Father Conversions - Other Mother Patient' s mother is Kidney disease Mother Pneumonia Mother Anesthesia problems Neg Hx Malig Hyperthermia Neg Hx Relation Name Status Comments Father Mother Social [...] often do you attend chur ch or catholic services? Never 06/24/2025 Do you belong to any clubs o r organizations such as orthodox groups, unions, fraternal or athletic groups, or [...] and heating? Not hard at all 06/24/2025 [facility] - Occupational [...] time in the past 12 m [facility], were you homeless or living in a mcc (including now)? No 06/24/2025 Utilities Answer Date Recorded In the past 12 months has th e [employer], gas, oil, or water [employer] threatened to shut off services in your [...] Mass Index 32.95 07/22/2025 10:40 AM EDT Plan of Treatment Upcoming Encounters Date Type Department Care Team (Late st Contact Info) Description 09/08/2025 11:20 AM EDT Office Visit [facility] [address], [address] [place] [address] Randy Osuna MD [address] [facility] [address] [place] [address] Health Maintenance Due Date Last Done Comments [facility]-Bone Density Scan 1955 [facility]-Depression Screening 1955 [facility]-Diabetes: Hemoglobin A1C 1955 [facility]-Medicare Annual Wellness (AWV) 1955 [facility]-Infant/Child/Adol SDOH Screenings 1955 Diabetes: Dental Exam 1965 CT Colonography 02/14/2000 Colonoscopy 02/14/2000 FIT-DNA 02/14/2000 FIT 02/14/2000 FOBT 02/14/2000 Sigmoidoscopy 02/14/2000 [facility]-Colorectal Cancer Screening 02/14/2000 [facility]-Breast Cancer Screening 2005 [facility]-RSV Vaccine: 60+ Years or (1 - Risk 60-74 years 1-dose series) 2015 [facility]-Zoster Vaccines (1 of 2) 02/07/2017 12/13/2016, 10/25/2016 [id number] Vaccine (4 - 2024- season) 2025 01/12/2022, 07/06/2021, 06/15/2021 [facility]-Influenza Vaccine (#1) 07/19/202509/08, 09/18/2023, 08/22/2022, Additional history exists [facility]- SDOH Screenings 12/25/2025 [facility]-Adult SDOH Screenings 12/25/2025 06/24/2025 [facility]-DTaP,Tdap,and Td Vaccines (3 - Td or Tdap) 12/13/2026 12/13/2016, 10/25/2016 [facility]-Pneumococcal Vaccine: 50+ Years Completed 09/27/2020, 12/13/2016 [facility]-Hepatitis C Screening Completed 08/16/2023 [facility]-Obesity Intervention Completed 025, 06/24/2025, 05/05/2025, Additional history exists HPV Vaccines Aged Out [...] Procedure Name Priority Date/Time Associated Diagnosis Comments MAGNESIUM, PLASMA Routine 07/22/2025 11:31 AM EDT S/P subtotal parathyroidectomy COMPREHENSIVE METABOLIC PANEL, PLASMA Routine 07/22/2025 11:31 AM EDT S/P subtotal parathyroidectomy PTH INTACT TOTAL Routine 07/22/2025 11:31 AM EDT S/P subtotal parathyroidectomy TOTAL CALCIUM, PLASMA Routine 07/05/2025 1:09 PM EDT POCT GLUCOSE METER UNSOLICITED RESULTS Routine 07/05/2025 9:38 AM EDT INTRAOPERATIVE PTH STAT 07/05/2025 9:06 AM EDT Primary hyperparathyroidism (CMS/HCC) INTRAOPERATIVE PTH STAT 07/05/2025 9:01 AM EDT Primary hyperparathyroidism (CMS/HCC) INTRAOPERATIVE PTH STAT 07/05/2025 8:56 AM EDT Primary hyperparathyroidism (CMS/HCC) SURGICAL PATHOLOGY EXAM Routine 07/05/2025 8:14 AM EDT Primary hyperparathyroidism (CMS/HCC) HC ENDOTRACHEAL TUBE Routine 07/05/2025 7:39 AM EDT PB ANESTHESIA PLACEHOLDER Routine 07/05/2025 7:39 AM EDT TN AN ELECTIVE ENDOTRACHEAL AIRWAY Routine 07/05/2025 7:39 AM EDT TN EXPLORE PARATHYROID GLANDS 07/05/2025 7:13 AM EDT Primary hyperparathyroidism (CMS/HCC) Special Needs NIM tube INTRAOPERATIVE PTH Routine 07/05/2025 6:45 AM EDT POCT GLUCOSE METER UNSOLICITED RESULTS Routine 07/05/2025 6:00 AM EDT POC ULTRASOUND 06/24/2025 ACUTE HEPATITIS PANEL Routine 08/16/2023 10:24 AM EDT High risk medication use from Last 3 Months or Most Recently Relevant to Health Maintenance Results * PTH Intact Total (07/22/2025 11:31 AM EDT) Pathologist [facility] PTH Intact Total 26 9 - 77 pg/mL 07/22/2025 5:25 PM EDT [facility] Blood Venous blood specimen / Unknown Venipuncture / Unknown 07/22/2025 11:31 AM EDT 07/22/2025 11:31 AM EDT Narrative [facility] - 07/22/2025 5:25 PM EDT Assay performed by immunoassay at the [facility]. Performed on [employer] chemiluminescent immunoassay, tractable to the World Health Organization's first international standard for PTH from the [facility], Code 79/500. Results obtained from different test methods or kits cannot be used interchangeably. Nato Mejias MD LAB BLOOD ORDERABLES Fin al Result [facility] [address] [place] [address] * Magnesium (07/22/2025 11:31 AM EDT) [facility] Magnesium, Plasma 2.3 1.9 - 2.4 mg/dL 07/22/2025 3:36 PM EDT [facility] Blood Venous blood specimen / Unknown Venipuncture / Unknown 07/22/2025 11:31 AM EDT 07/22/2025 11:31 AM EDT Nato Mejias MD LAB BLOOD ORDERABLES Fin al Result [facility] [address] [place] [address] * (ABNORMAL) Comprehensive Metabolic Panel, Plasma (07/22/2025 11:31 AM EDT) [facility] Glucose, Plasma 134(H) 74 - 99 mg/dL 07/22/2025 3:36 PM EDT [facility] BUN, Plasma 11 8 - 23 mg/dL 07/22/2025 3:36 PM EDT [facility] Creatinine, Plasma 0.94 0.60 - 1.10 mg/dL 07/22/2025 3:36 PM EDT [facility] BUN/Creatinine Ratio 12 07/22/2025 3:36 PM EDT [facility] Sodium, Plasma 140 136 - 145 mmol/L 07/22/2025 3:36 PM EDT [facility] Potassium, Plasma 4.9 3.6 - 4.9 mmol/L 07/22/2025 3:36 PM EDT [facility] Chloride, Plasma 101 97 - 107 mmol/L 07/22/2025 3:36 PM EDT [facility] CO2, Plasma 22 22 - 29 mmol/L 07/22/2025 3:36 PM EDT [facility] Anion Gap 17(H) 6 - 16 mmol/L 07/22/2025 3:36 PM EDT [facility] Total Calcium, Plasma 8.2(L) 8.9 - 10.2 mg/dL 07/22/2025 3:36 PM EDT [facility] Total Protein 7.1 6.3 - 7.9 g/dL 07/22/2025 3:36 PM EDT [facility] Albumin, Plasma 4.2 3.5 - 5.2 g/dL 07/22/2025 3:36 PM EDT [facility] AST, Plasma 27 10 - 35 U/L 07/22/2025 3:36 PM EDT [facility] ALT, Plasma 20 10 - 35 U/L 07/22/2025 3:36 PM EDT [facility] Alkaline Phosphatase, Plasma 98 46 - 142 U/L 07/22/2025 3:36 PM EDT [facility] Total Bilirubin, Plasma 0.3 0.2 - 1.1 mg/dL 07/22/2025 3:36 PM EDT [facility] eGFRcr 65.4 mL/min/1.7 3m*2 07/22/2025 3:36 PM T [facility] Comment:Reported eGFRcr in m L/min/1.73m2 is based the CKD-EPI 2020 equation that does not use a race coefficient. Blood Venous blood specimen / Unknown Venipuncture / Unknown 07/22/2025 11:31 AM EDT 07/22/2025 11:31 AM EDT us Nato Mejias MD LAB BLOOD ORDERABLES Fin al Result Performing Organization Address City/[facility] Co de Phone Number [facility] [address] [place] [address] * Calcium (07/05/2025 1:09 PM EDT) Total Calcium, Plasma 9.5 8.9 - 10.2 mg/dL 07/05/2025 1:45 PM EDT [facility] Blood Venous blood specimen / Unknown Venipuncture / Unknown 07/05/2025 1:09 PM EDT 07/05/2025 1:17 PM EDT Result Mushtaq Mejias MD LAB BLOOD ORDERABLES Fin al Result Performing Organization Address [facility] Phone Number [facility] [address] [place] [address] * (ABNORMAL) POCT glucose meter (07/05/2025 9:38 AM EDT) Only the most recent of2 resultswithin the time period is included. Pathologist [facility] POCT Glucose 188(H) 74 - 99 mg/dL [...] 07/05/2025 9:39 AM EDT [facility] Weekend Anchor ID Daksha Carrington 07/05/20 9:39 AM EDT [facility] Device ID [id number] 07/05/2025 9:39 AM EDT [facility] Specimen Type POC Capillary 07/05/2025 9:39 AM EDT [facility] Blood Capillary blood specimen / Unknown 07/05/2025 9:38 AM EDT 07/05/2025 9:39 AM EDT us Nato Mejias MD LAB POINT OF CAR E TEST DOCKED DEVICE UNSOLICITED RESULTS Final Result Performing Organization Address [facility] Co de Phone Number [facility] [address] [place] [address] * Intraoperative PTH (07/05/2025 9:06 AM EDT) Only the most recent of4 resultswithin the time period is included. Intraoperative PTH 10 pg/mL 2024 9:27 AM EDT [facility] Time of Collection 092024 9:27 AM EDT [facility] Comment:10 Blood Venous blood specimen / Unknown 07/05/2025 9:06 AM EDT 07/05/2025 9:10 AM EDT Comment:Pre-op diagnosis: Primary hyperparathyroidism (CMS/HCC) [E21.0] Narrative [facility] - 07/05/2025 9:27 AM EDT Intraoperative [...] ORDERABLES Fin al Result Performing Organization Address [facility] de Phone Number [facility] [address] [place] [address] * Surgical Pathology Exam (07/05/2025 8:14 AM EDT) Case Report Surgical Pathology Case: [id number] Authorizing Provider: Nato Mejias MD Collected: 07/05/2025 0814 Ordering Location: [facility] Operating Room Received: 07/05/2025 08 Pathologist: Harriet Crocker MD Intraop: Harriet Crocker MD Specimens: A) - Parathyroid, Biopsy right superior parathyroid. B) - Parathyroid, Right inferior parathyroid gland. C) - Parathyroid, Left inferior parathyroid gland. D) - Parathyroid, Left superior parathyroid gland. E) - Neck, Superficial neck fat. F) - Neck, Left neck fat. 12:40 PM EDT [facility] Final Diagnosis A. RIGHT [...] - BENIGN ADIPOSE TISSUE. 12:40 PM EDT [facility] at 1240 EDT Comment:This is an appended report. These results have been appended to a previously preliminary verified report. Clinical Information Primary hyperparathyroidism (CMS/HCC) [E21.0] 12:40 PM EDT [facility] Comment: This is an [...] FSD: HYPERCELLULAR PARATHYROID (0.21G) 12:40 PM EDT [facility] Comment:Corrected result: Pr eviously reported [...] <1m Rose Gtz 5 12:40 PM EDT [facility] Comment:This is an appended report. These results have been appended to a previously preliminary verified report. Note: A resident was involved in the service. I attest I examined the relevant preparations for the specimens and confirmed the diagnosis or interpretation. 5 12:40 PM EDT [facility] Comment:This is an appended [...] Mejias MD LAB PATHOLOGY ORDERABLES Final Result Performing Organization Address City/State/[facility] Co de Phone Number [facility] [address] [place] [address] * TN AN ELECTIVE ENDOTRACHEAL AIRWAY, PB ANESTHESIA PLACEHOLDER, [...] us Boogie Herrera MD ANESTHESIA ORDERABLES Sussy l Result * POC Imaging (06/24/2025) Anatomical Region Laterality Modality Pelvis Other 06/24/2025 us External Provider IMG POINT OF CARE ULTRASOUND F inal Result * Acute Hepatitis Panel (08/16/2023 10:24 AM EDT) Hepatitis B Surf Antigen Negative Negative 08/16/2023 12:33 PM EDT [facility] Hepatitis C Antibody Negative Negative 08/16/2023 12:33 PM EDT [facility] Hepatitis A Antibody IgM Negative Negative 08/16/2023 12:33 PM EDT [facility] Hepatitis B Core Antibody IgM Negative Negative 08/16/2023 12:33 PM EDT [facility] Blood Venous blood specimen / Unknown Venipuncture / Unknown 08/16/2023 10:24 AM EDT 08/16/2023 10:25 AM EDT us Sindhu Rock MORTGAGE LOAN COUNSELOR LAB BLOOD ORDERABLES Final Result [facility] [address] [place] [address] from Last 3 Months or Most Recently Relevant to Health Maintenance [place] [address] [employer] Advance Directives * Full Code (Latest Code Status on File) Date Activated Date Inactivated Comments 07/05/2025 9:50 AM 07/05/2025 3:30 PM Question Answer Comments I have reviewed the capacity from the link above and, if needed, have updated to appropriate status: Yes Care Teams Application Support Administrator Relationship Specialty Start Date End Date Piotr Eason MD PCP - General Family Medicine 05/05/25
--- NOTE | 2025-08-09 16:30 | MM_ITS ---
PROCEDURE INFORMATION: Exam: MG Left Diagnostic Breast Tomosynthesis Exam date and time: 08/09/2025 3:39 PM Age: 70 years old Clinical indication: Short-term radiographic followup; Left breast; Additional info: 6 month follow-up left breast TECHNIQUE: Imaging protocol: Left Diagnostic tomosynthesis and 2D mammography including computer-aided detection (CAD) when performed. Unilateral or bilateral exam. COMPARISON: MG MM DIG SCREENING MAMM BI W/CAD 12/11/2024 10:28 AM FINDINGS: MAMMOGRAPHY: Breast composition: There are scattered areas of fibroglandular density. Breast mammogram findings: No persistent mass is seen in the left inferior breast. No stellate mass, architectural distortion, or suspicious microcalcifications to suggest malignancy. No skin thickening or axillary adenopathy. IMPRESSION: 1. No mammographic evidence of malignancy. 2. Annual bilateral mammographic screening is recommended unless otherwise clinically indicated. ASSESSMENT: BI-RADS Category 1: Negative.
== END 2025-08-09 23:59 | disposition home or self-care (01) ==
LOC: RAD 15:18
PROVIDERS: PCP Family Medicine; Visit Provider Family Medicine
DX: R92.322 Mammographic fibroglandular density, left breast (principal)
CPT/HCPCS: 77061; 77065; G0279

== ENCOUNTER 2025-11-04 10:10 | Outpatient (CLI) | payer MEDICARE, SELFPAY ==
--- OUTSIDE RECORDS SUMMARY | 2025-02-20 16:30 | XMS_ITS ---
Author Organization [facility] PE D ANGELINA Address [address] [facility] [address] [place] [address] Care Team Providers Care Supervisor Assembling Name Role Phone Jose Kraft Primary Care Provider Migration, Provider Unavailable Unavailable [facility] VISIT [facility] Encounter Medications Medication SIG (Take, Route, Frequency, Duration) Notes Start Date End Date Status Meloxicam 15 MG 1 tab(s) orally once a day; Duration: 90 Active Farxiga 10 MG 1 tab(s) orally once a day; Duration: 30 day(s) 02/23/2022 Active Atorvastatin Calcium 20 MG 1 tab(s) orally once a day (at bedtime); Duration: 90 Active DILACOR 240 MGM 1 TAB DAILY; Duration: 30 DAYS *Please review for potential replacement for e-prescription and drug interaction check* 07/10/2019 Active Flonase Allergy Relief 0.05% 2 SPRAY(S) INTRANASALLY ONCE A DAY *Please review and pick correct strength-formulati on from [employer] options. If intended option is not shown, discontinue and re-order from Quick Search* Active ULTRAM 50 MG 1 TAB(S) ORALLY EVERY 8 HOURS; Duration: 30 DAYS *Please review for potential replacement for e-prescription and drug interaction check* 09/27/2022 Active CALTRATE 600 MG 2 TAB(S) ORALLY ONCE A DAY *Please review for potential replacement for e-prescription and drug interaction check* Active Diclofenac Sodium 1 % as directed applied topically 4 times a day; Duration: 30 day(s) 06/16/2019 Active Pataday 0.2 % 1 gtt in each affected eye once a day; Duration: 10 day(s) Active Prevacid 30 MG 1 cap(s) orally once a day; Duration: 90 days Active Dilt-XR 240 MG TAKE 1 CAPSULE BY MOUTH EVERY DAY; Duration: 90 Active Methotrexate 2.5MG 8 PILLS ORALLY 1X/WEEK ON SATURDAY; Duration: 90 *Please review and pick correct strength-formulati on from [employer] options. If intended option is not shown, discontinue and re-order from Quick Search* Active Alendronate Sodium 35 MG 1 tab(s) orally once a week; Duration: 28 Active Gabapentin 100 MG 1 cap(s) orally 2 times a day; Duration: 30 days 03/09/2022 Active Folic Acid 1 MG 1 tab(s) orally once a day; Duration: 90 days 05/25/2022 Active Jardiance 25 MG 1 tab(s) orally once a day (in the morning); Duration: 30 day(s) 02/28/2022 Active Estradiol 1 MG Take 1/2 (one-half) tablet by mouth once daily; Duration: 90 Active Lisinopril 20 MG 1 tab(s) orally once a day; Duration: 90 Active Encounters Encounter Location Date Provider Diagnosis [facility] PED ANGELINA [address] [facility] [address] [place] [address] 02/20/2025 Provider Migration Plan Of Treatment Medication Medication Name Sig Start Date Stop Date Notes ULTRAM 50 MG 1 TAB(S) ORALLY EVERY 8 HOURS; Duration: 30 DAYS 09/27/2022 *Please review for potential replacement for e-prescription and drug interaction check* Prevacid 30 MG 1 cap(s) orally once a day; Duration: 90 days Dilt-XR 240 MG TAKE 1 CAPSULE BY MOUTH EVERY DAY; Duration: 90 Alendronate Sodium 35 MG 1 tab(s) orally once a week; Duration: 28 Folic Acid 1 MG 1 tab(s) orally once a day; Duration: 90 days 05/25/2022 Progress Notes * Stephanie HICKEYOB: [birth year] (70 yo F)Acc No.[id number]:02/20/2025 Patient: Bernice DIAS Provider: Kong lucero Migration :1955 A ge:70 Y S ex:Female Date:02/20/2025 Address:[address] [place], [place], [id number] Pcp:Jose Kraft Subjective: * Chief Complaints: * [facility] . [facility] * Medical History: * Medications: T aking Pataday 0.2 % Solution 1 gtt in each affected eye once a day , Taking CALTRATE 600 MG TABLET 2 TAB(S) ORALLY ONCE A DAY , Notes to Pharmacist: *Please review for potential replacement for e-prescription and drug interaction check*, Taking Diclofenac Sodium 1 % Gel as directed applied topically 4 times a day , Taking DILACOR 240 MGM 1 TAB DAILY , Notes to Pharmacist: *Please review for potential replacement for e-prescription and drug interaction check*, Taking Flonase Allergy Relief 0.05% SPRAY 2 SPRAY(S) INTRANASALLY ONCE A DAY , Notes to Pharmacist: *Please review and pick correct strength-formulation from [facility] options. If intended option is not shown, discontinue and re-order from Quick Search*, Taking Atorvastatin Calcium 20 MG Tablet 1 tab(s) orally once a day (at bedtime) , Taking Meloxicam 15 MG Tablet 1 tab(s) orally once a day , Taking Farxiga 10 MG Tablet 1 tab(s) orally once a day , Taking Jardiance 25 MG Tablet 1 tab(s) orally once a day (in the morning) , Taking Estradiol 1 MG Tablet Take 1/2 (one-half) tablet by mouth once daily , Taking Lisinopril 20 MG Tablet 1 tab(s) orally once a day , Taking Gabapentin 100 MG Capsule 1 cap(s) orally 2 times a day , Taking Methotrexate 2.5MG TABLET 8 PILLS ORALLY 1X/WEEK ON SATURDAY , Notes to Pharmacist: *Please review and pick correct strength-formulation from [employer] options. If intended option is not shown, discontinue and re-order from Quick Search* Objective: * Vitals: Assessment: Plan: * Treatment: * * Electronic signature of Donny cotton Migration on 11/04/2025 at 10:43 AM EST Sign off status: Pending * Provider: Kong lucero Migration Date: 0 02/20/2025 Generated for Jaki gary/Sharon/Katiana on: 1 01/05/2025 10:43 AM EST
--- OUTSIDE RECORDS SUMMARY | 2025-09-08 10:20 | XMS_ITS | Encounter Summary ---
Author Organization [facility] Address [address] [place] [address] Care Team Providers Care Powder Room Attendant Name Role Phone Piotr Eason MD Primary Care Provider Alma vailable Reason for Referral * Consultation (Routine) - Authorized Specialty Diagnoses / Procedures Referred By Contac t Referred To Contact Diagnoses Primary hyperparathyroidism ([facility]) S/P parathyroidectomy Randy Osuna MD [address] [address] Phone: tel: fax: Referral ID Status Reason Start Date Expiration Date V isits Requested Visits Authorized [id number] Authorized 09/08/2025 03/10/2027 1 1 Reason for Visit * Reason Comments Follow-up * Consultation (Routine) - Closed Specialty Diagnoses / Procedures Referred By Contac t Referred To Contact Diagnoses Hyperparathyroidism ([facility]/HCC) Randy Osuna MD [address] [facility] [address] [place] [address] Phone: tel: fax: Referral ID Status Reason Start Date Expiration Date Visits Re quested Visits Authorized [id number] Closed 05/05/2025 11/04/2026 1 1 Encounter Details Date Type Department Care Team (Late st Contact Info) Description 09/08/2025 11:20 AM EDT Office Visit [facility] [address], [address] [place] [address] Randy Osuna MD [address] [facility] [address] [place] [id number] Primary hyperparathyroidism (CMS/HCC) (Primary Dx); S/P parathyroidectomy; Muscle cramps; Osteoporosis without current pathological fracture, unspecified osteoporosis type; Chronic pain of left knee Social History Tobacco Use Types Packs/Day Years [...] week 06/24/2025 How often do you attend [facility] or catholic services? Never 06/24/2025 Do you belong to any clubs o r organizations such as tenriism groups, unions, fraternal or athletic groups, or [...] and heating? Not hard at all 06/24/2025 [facility] - Occupational Stress Questionnaire Answer Date Recorded [...] in the past 12 m [facility], were you homeless or living in a longterm (including now)? No 06/24/2025 Utilities Answer Date [...] Sign Reading Time Taken Comments Blood Pressure 124/83 09/08/2025 11:14 AM EDT Pulse 80 09/08/2025 11:14 AM EDT Temperature 36.5 C (97.7 F) 09/08/2025 11:14 AM EDT Respiratory Rate - - Oxygen Saturation 93% 09/08/2025 11:14 AM EDT Inhaled Oxygen Concentration - - Weight 89 kg (196 lb 3.4 oz) 09/08/2025 11:14 AM EDT Height 160 cm (5' 3 ) 09/08/2025 11:14 AM EDT Body Mass Index 34.76 09/08/2025 11:14 AM EDT documented in this encounter Miscellaneous Notes * Patient Instructions - Randy Osuna MD - 09/08/2025 11:20 AM EDT It was a pleasure meeting you today! Let us get blood work today to see the calcium and electrolytes Please return to the clinic in 4 months * Progress Notes - Randy Osuna MD - 09/08/2025 11:20 AM EDT Subjective Bernice Cooney is a 70 y.o., female here for follow up for hypercalcemia 2/2 primary hyperparathyroidism s/p subtotal parathyroidectomy in 07.05.2025 She is here today with who was present for entire visit and provided additional history. Interval History Last Visit:05.05.2025 Since last visit the patient s/p subtotal parathyroidectomy in Reports things have been steady since surgery She reports doing well; she states that energy is improved and feels polyuria has improved She reports she is having intermittent muscle spasms since surgery She was rx'ed 400mg Mag Oxide daily by endocrine surgery but was taking 4 tabs daily to assist withsxs - she was taking 2 tabs in AM and 2 tab in PM but now back to 1 tab daily for the past 2 weeks based on advice from PCP She reports was told to take 2 TUMS 500mg in AM and 2 TUMS in PM; and at times she is doing 2 TUMS in afternoon as requested by PCP. She takes Womens once a day MVI daily She reports cramps/spasms occurring 1-2x week HYPERCALCEMIA: She reports first hearing about high [...] all calcium in the diet. Vitamin D intake:general MVI No recent falls Family history of osteoporosis: Denied; reports mother did not go to provider and states was humpedover Parental history of hip fracture: Denied She has [facility] in [facility] Past Medical History[1] Surgical History[2] Current Medications[3] Allergies[4] Social History[5] Family History[6] There is no family hx of hypercalcemia, nephrolithiasis, hip fracture, osteoporosis or thyroid disease. Review of Systems: See HPI Review of Systems Constitutional: Negative for chills and fever. Respiratory: Negative for shortness of breath. Gastrointestinal: Negative for nausea and vomiting. A complete ROS was otherwise negative in detail Objective Physical Exam: BP 124/83 (BP Location: Left arm, Patient Position: Sitting, BP Cuff Size: Large adult long) Pulse 80 Temp 36.5 ??C (97.7 ??F) (Oral) Ht 1.6 m (5' 3 ) Wt 89 kg (196 lb 3.4 oz) BMI 34.76 kg/m?? GEN:Sitting up comfortably, well appearing, non-Cushingoid [...] Ca2+ 332mg/d FeCa 0.021 1.69 1.0 6.18.25 10.6 4.1 5.7 119 51.1 71 3.5 0.73 88.6 Urine Vol 3.2L Urine Ca2+ 147mg/d Mag 1.7 L 8.18.25 Subtotal parathyroidectomy 9.4.25 8.2 L 4.2 26 98 0.94 65.4 Mag 2.3 PATHOLOGY 8. Final Diagnosis A. RIGHT SUPERIOR PARATHYROID, BIOPSY: [...] NECK FAT, EXCISION - BENIGN ADIPOSE TISSUE. IMAGING DXA L1-L4 T score 0.2 L FN T score -2.2; BMD 0.6 NM Parathyroid Scan 1. FINDINGS: Small thyroid gland with homogeneous biodistribution [...] Thyroid Gland: Small. Assessment/Plan Hypercalcemia: Primary Hyperparathyroidism s/p subtotal parathyroidectomy in Check serum CMP, iCal, Mag, Phos, iPTH and 25 hydroxy Vitamin D now for surveillance Osteoporosis On Fosamax 35mg weekly for unclear duration DXA in wit T score -2.2 in LFN; repeat DXA in Muscle Cramps Check ferritin, iron studies, B12 and folate for further eval ?low calcium in setting of subtotal parathyroidectomy; eval as above I have answered all of my patient's questions to the best of my ability. RTC in 4 Months I personally spent a total of 34 minutes on this encounter. This time includes face to face with patient, counseling and discussion and/or coordination of care. Electronically signed by: Randy Osuna MD Orders Placed This Encounter Procedures Vitamin D 25 Hydroxy Ferritin, Serum Iron & Total Iron Binding Capacity, Plasma (Includes Transferrin) Folate, Serum Vitamin B12, Serum Renal function panel Magnesium, Plasma Ionized calcium, serum PTH Intact Total Follow Up [facility] [1] Past Medical History: Diagnosis Date Personal history of other diseases of the circulatory system History of hypertension Personal history of other diseases of the musculoskeletal system and connective tissue History of osteoporosis Personal history of other endocrine, nutritional and metabolic disease History of diabetes mellitus 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 Takes weekly on Fridays., Disp: , Rfl: atorvastatin (Lipitor) 20 MG tablet, Take 1 tablet by mouth nightly., Disp: , Rfl: Dilt-XR 240 MG 24 hr capsule, Take 1 capsule by mouth nightly., Disp: , Rfl: folic acid (Folvite) 1 MG tablet, TAKE 1 TABLET 1 TIME EACH DAY, Disp: , Rfl: lansoprazole (Prevacid) [address] capsule, TAKE 1 CAPSULE 1 TIME EACH DAY, Disp: , Rfl: lisinopril 20 MG tablet, Take 1 tablet by mouth nightly., Disp: , Rfl: meloxicam (Mobic) 15 MG tablet, TAKE 1 TABLET 1 TIME EACH DAY FOR PAIN, Disp: , Rfl: metFORMIN (Glucophage) 500 MG tablet, Take 2 tablets by mouth 2 times a day with meals., Disp: , Rfl: Multiple Vitamin (multivitamin) tablet, Take 1 tablet by mouth daily., Disp: , Rfl: Premarin 0.625 MG tablet, TAKE 1 TABLET 1 TIME EACH DAY, Disp: , Rfl: Mujqenn-Zutfybkir-Beqkunz D ER (CITRACAL) 600-40-500 MG-MG-UNIT tablet sustained-release 24 hour, Take 2 tablets by mouth daily., Disp: 60 tablet, Rfl: 5 ferrous sulfate 325 (65 Fe) MG tablet, Take 1 tablet by mouth every other day., Disp: 30 tablet, Rfl: 1 magnesium oxide (Mag-Ox) 400 mg tablet, Take 1 tablet by mouth daily., Disp: 30 tablet, Rfl: 3 [4] No Known Allergies [5] Social History [...] Hyperthermia Neg Hx Anesthesia problems Neg Hx documented in this encounter Plan of Treatment Upcoming Encounters Date Type Department Care Team (Late st Contact Info) Description 01/24/2026 2:20 PM EDT Office Visit [facility] [address], [address] [place] [address] Randy Osuna MD [address] [place] [phone] Scheduled Referrals Name Type Priority Associated Diagnoses Orde r Schedule Follow Up [facility] Outpatient Referral Routine Primary hyperparathyroidism ([facility]) S/P parathyroidectomy Expected: 01/09/2026, Expires: 03/12/2027 documented as of this encounter Results * PTH Intact Total (09/08/2025 12:24 PM EDT) PTH Intact Total 25 9 - 77 pg/mL 09/08/2025 5:10 PM EDT [facility] Blood Venous blood specimen / Unknown Venipuncture / Unknown 09/08/2025 12:24 PM EDT 09/08/2025 12:25 PM EDT Narrative [facility] - 09/08/2025 5:10 PM EDT Assay performed by immunoassay at the [facility]. Performed on Alex Chief Scientific Officer chemiluminescent immunoassay, tractable to the World Health Organization's first international standard for PTH from the [facility], Code 79/500. Results obtained from different test methods or kits cannot be used interchangeably. Randy Osuna MD LAB BLOOD ORDERABLES Final R esult Performing Organization Address City/[facility]/ZIP Co de Phone Number [facility] [address] [place] [address] * Ionized calcium, serum (09/08/2025 12:24 PM EDT) Pathologist [facility] Ionized Calcium, Serum 4.7 4.6 - 5.3 mg/dL LAB HEMATOLOGY METHOD 09/08/2025 3:01 PM EDT [facility] Blood Venous blood specimen / Unknown Venipuncture / Unknown 09/08/2025 12:24 PM EDT 09/08/2025 12:25 PM EDT Randy Osuna MD LAB BLOOD ORDERABLES Final R esult [facility] [address] [place] [address] * Magnesium, Plasma (09/08/2025 12:24 PM EDT) Pathologist [facility] Magnesium, Plasma 1.9 1.9 - 2.4 mg/dL 09/08/2025 3:21 PM EDT [facility] Blood Venous blood specimen / Unknown Venipuncture / Unknown 09/08/2025 12:24 PM EDT 09/08/2025 12:25 PM EDT us Randy Osuna MD LAB BLOOD ORDERABLES Final R esult [facility] [address] [place] [address] * (ABNORMAL) Renal function panel (09/08/2025 12:24 PM EDT) Glucose, Plasma 139(H) 74 - 99 mg/dL 09/08/2025 3:21 PM EDT [facility] BUN, Plasma 12 8 - 23 mg/dL 09/08/2025 3:21 PM EDT [facility] Creatinine, Plasma 0.80 0.60 - 1.10 mg/dL 09/08/2025 3:21 PM EDT [facility] BUN/Creatinine Ratio 15 09/08/2025 3:21 PM EDT [facility] Sodium, Plasma 140 136 - 145 mmol/L 09/08/2025 3:21 PM EDT [facility] Potassium, Plasma 4.3 3.6 - 4.9 mmol/L 09/08/2025 3:21 PM EDT [facility] Chloride, Plasma 100 97 - 107 mmol/L 09/08/2025 3:21 PM EDT [facility] CO2, Plasma 25 22 - 29 mmol/L 09/08/2025 3:21 PM EDT [facility] Anion Gap 15 6 - 16 mmol/L 09/08/2025 3:21 PM EDT [facility] Total Calcium, Plasma 8.9 8.9 - 10.2 mg/dL 09/08/2025 3:21 PM EDT [facility] Phosphorus, Plasma 3.7 2.5 - 4.5 mg/dL 09/08/2025 3:21 PM EDT [facility] Albumin, Plasma 4.3 3.5 - 5.2 g/dL 09/08/2025 3:21 PM EDT [facility] eGFRcr 79.4 mL/min/1.7 3m*2 09/08/2025 3:21 PM EDT [facility] Comment:Reported eGFRcr in m L/min/1.73m2 is based the CKD-EPI 2020 equation that does not use a race coefficient. Blood Venous blood specimen / Unknown Venipuncture / Unknown 09/08/2025 12:24 PM EDT 09/08/2025 12:25 PM EDT us Randy Osuna MD LAB BLOOD ORDERABLES Final R esult Performing Organization Address City/[facility]/ZIP Co de Phone Number [facility] [address] [place] [address] * Vitamin B12, Serum (09/08/2025 12:24 PM EDT) Vitamin B12, Serum 344 210 - 1,033 pg/mL 09/08/2025 4:32 PM EDT [facility] Blood Venous blood specimen / Unknown Venipuncture / Unknown 09/08/2025 12:24 PM EDT 09/08/2025 12:25 PM EDT us Randy Osuna MD LAB BLOOD ORDERABLES Final R esult Performing Organization Address [facility]/ZIP Co de Phone Number [facility] [address] [place] [address] * Folate, Serum (09/08/2025 12:24 PM EDT) Folate, Serum >20.0 >4.6 ng/mL 09/08/2025 4:38 PM EDT [facility] Blood Venous blood specimen / Unknown Venipuncture / Unknown 09/08/2025 12:24 PM EDT 09/08/2025 12:25 PM EDT Randy Osuna MD LAB BLOOD ORDERABLES Final R esult Performing Organization Address City/[facility]/ZIP Co de Phone Number [facility] [address] [place] [address] * Iron & Total Iron Binding Capacity, Plasma (Includes Transferrin) (09/08/2025 12:24 PM EDT) Iron, Plasma 41 30 - 160 ug/dL 09/08/2025 4:18 PM EDT [facility] Transferrin, Plasma 231 200 - 360 mg/dL 09/08/2025 4:18 PM EDT [facility] Total Iron Binding Capacity, Plasma 289 240 - 450 ug/mL 09/08/2025 4:18 PM EDT [facility] Transferrin Saturation 14 14 - 50 % 09/08/2025 4:18 PM EDT [facility] Blood Venous blood specimen / Unknown Venipuncture / Unknown 09/08/2025 12:24 PM EDT 09/08/2025 12:25 PM EDT us Randy Osuna MD LAB BLOOD ORDERABLES Final R esult Performing Organization Address City/[facility]/ZIP Co de Phone Number [facility] [address] [place] [address] * Ferritin, Serum (09/08/2025 12:24 PM EDT) Ferritin, Serum 18 13 - 150 ng/mL 09/08/2025 4:32 PM EDT [facility] Blood Venous blood specimen / Unknown Venipuncture / Unknown 09/08/2025 12:24 PM EDT 09/08/2025 12:25 PM EDT us Randy Osuna MD LAB BLOOD ORDERABLES Final R esult Performing Organization Address [facility] Co de Phone Number [facility] [address] [place] [address] * Vitamin D 25 Hydroxy (09/08/2025 12:24 PM EDT) Vitamin D 25 Hydroxy 60.0 20.0 - 80.0 ng/mL 09/08/2025 5:27 PM EDT [facility] Blood Venous blood specimen / Unknown Venipuncture / Unknown 09/08/2025 12:24 PM EDT 09/08/2025 12:25 PM EDT Narrative [facility] - 09/08/2025 5:27 PM EDT Testing performed on Alex Chief Scientific Officer, standardized against NIST SRM 2972. When testing [...] MD LAB BLOOD ORDERABLES Final R esult [facility] [address] [place] [address] documented in this encounter Visit Diagnoses Diagnosis Primary hyperparathyroidism (CMS/[facility])- Primary Primary hyperparathyroidism S/P parathyroidectomy Other postprocedural status Muscle cramps Osteoporosis without current pathological fracture, unspecified osteoporosis type Chronic pain of left knee documented in this encounter Additional Health Concerns Assessment Noted Time A fall risk assessment has been complete d for the patient 09/08/2025 11:21 AM EDT A Body Mass Index follow-up plan has been documented for the patient 09/08/2025 12:04 PM EDT documented as of this encounter Care Teams Powder Room Attendant Relationship Specialty Start Date End Date Piotr Eason MD PCP - General Family Medicine 05/05/25 documented as of this encounter
--- NOTE | 2025-11-04 10:30 | CT_ITS ---
FINAL REPORT TECHNIQUE: Axial images through the abdomen and pelvis were performed without contrast. This study was performed with techniques to keep radiation doses as low as reasonably achievable, (ALARA). Individualized dose reduction techniques using automated exposure control or adjustment of mA and/or kV according to the patient's size were employed. CLINICAL HISTORY: abdominal pain hx hernia repairs COMPARISON: 12/03/2022 FINDINGS: Abdomen: There is mild chronic scarring at the lung bases. The liver parenchyma is homogeneous. The gallbladder is surgically absent. The spleen, pancreas, adrenals are unremarkable. Perinephric stranding is likely postinflammatory. There are postsurgical changes from prior ventral hernia repair. Previously noted herniated fat is no longer visualized. Pelvis: The urinary bladder is decompressed. The appendix is not visualized. Calcified phleboliths are present in the floor of the pelvis. There is no pelvic mass or inflammation. IMPRESSION: No acute abnormality. Reviewed, Interpreted and Dictated by James Echavarria MD Transcribed by Paris Taylor Authenticated and [facility]
--- OUTSIDE RECORDS SUMMARY | 2025-11-04 10:43 | XMS_ITS | Encounter Summary ---
Author Organization Healthcare Address [address] [place] [address] Care Team Providers Care Supervisor Game Farm Name Role Phone Piotr Eason MD Primary Care Provider Alma vailable Encounter Details Date Type Department Care Team (Late st Contact Info) Description 09/10/2025 [facility]phone [facility] [address] [place] [address] Randy Osuna MD [address] [facility] [address] [place] [address] Social History Tobacco Use Types [...] often do you attend chur ch or sabianist services? Never 06/24/2025 Do you belong to [...] and heating? Not hard at all 06/24/2025 [facility] [place] [facility] - Occupational Stress [...] any time in the past 12 m [facility], were you homeless or living in a penitentiary (including now)? No 06/24/2025 Utilities Answer Date [...] encounter Miscellaneous Notes * Telephone Encounter - Letty Quevedo RN - 09/14/2025 1:43 PM EDT [facility]ed [facility] spoke with Pharmacists Sharifa clarified Ferrous Sulfate 325 (65 FE) script directions Take 1 tablet every other day. Please discontinue other script. Nothing further needed atthis time Letty Quevedo, RN * Telephone Encounter - ALBARO STEWART - 09/10/2025 10:48 AM EDT [facility] is requesting call back regarding ferrous sulfate RX, they state they received 2 prescriptions for the same drug with different directions and quantities, please call back for clarification at [phone] documented in this encounter Plan of Treatment Upcoming Encounters Date Type Department Care Team (Late st Contact Info) Description 01/24/2026 2:20 PM EDT Office Visit [facility] [address], [address] [place] [phone] Randy Osuna MD [address] [facility] [address] [place] [address] documented as of this encounter Visit Diagnoses Not on filedocumented in this encounter Additional Health Concerns Assessment Noted Time A fall risk assessment has been complete d for the patient 09/08/2025 11:21 AM EDT A Body Mass Index follow-up plan has been documented for the patient 09/08/2025 12:04 PM EDT documented as of this encounter Care Teams Supervisor Game Farm Relationship Specialty Start Date End Date Piotr Eason MD PCP - General Family Medicine 05/05/25 documented as of this encounter
--- OUTSIDE RECORDS SUMMARY | 2025-11-04 10:43 | XMS_ITS | Encounter Summary ---
Author Organization Healthcare Address [address] [place] [address] Care Team Providers Care Technology Solutions Architect Name Role Phone Piotr Eason MD Primary Care Provider Alma vailable Encounter Details Date Type Department Care Team (Latest Contact Info) Description 09/08/2025 Travel Social History Tobacco Use Types Packs/Day [...] week 06/24/2025 How often do you attend [facility] or anglican services? Never 06/24/2025 Do you belong to any clubs o r organizations such as jew groups, unions, fraternal or athletic groups, or [...] and heating? Not hard at all 06/24/2025 [facility] [place] [facility] Occupat ional Health - Occupational Stress [...] any time in the past 12 m [facility], were you homeless or living in a correction (including now)? No 06/24/2025 Utilities Answer Date [...] Description 01/24/2026 2:20 PM EDT Office Visit [facility] [address], [address] [place] [address] Randy Osuna MD [address] [phone] documented as of this encounter Visit Diagnoses Not on filedocumented in this encounter Additional Health Concerns Assessment Noted Time A fall risk assessment has been complete d for the patient 09/08/2025 11:21 AM EDT A Body Mass Index follow-up plan has been documented for the patient 09/08/2025 12:04 PM EDT documented as of this encounter Care Teams Technology Solutions Architect Relationship Specialty Start Date End Date Piotr Eason MD PCP - General Family Medicine 05/05/25 documented as of this encounter
--- OUTSIDE RECORDS SUMMARY | 2025-11-04 10:43 | XMS_ITS | Encounter Summary ---
Author Organization Healthcare Address [address] [place] [address] Care Team Providers Care Glass Engraver Name Role Phone Piotr Eason MD Primary Care Provider Alma vailable Reason for Visit * Reason Onset Date Comments Results 09/09/2025 Encounter Details Date Type Department Care Team (Late st Contact Info) Description 09/09/2025 Results Follow-Up [facility] [address] [place] [address] Randy Osuna MD [address] [facility] [address] [place] [address] Results Social History Tobacco Use Types Packs/Day Years [...] often do you attend chur ch or pentecostal services? Never 06/24/2025 Do you belong to any clubs o r organizations such as presybeterian groups, unions, fraternal or athletic groups, or [...] and heating? Not hard at all 06/24/2025 [facility] - Occupational [...] any time in the past 12 m [facility], were you homeless or living in [...] encounter Miscellaneous Notes * Telephone Encounter - Randy Osuna MD - 09/09/2025 6:34 PM EDT 09/09/25 Called and spoke with patient Recommend Mag 400mg daily; Citracal 1200mg ER daily Recommend ferrous supplement 3 times weekly/ every other day for 6 weeks to assess for improvement in muscle cramps Patient expressed understanding. All questions answered and concerns addressed Randy Osuna MD General Technician of Endocrinology, Diabetes and Metabolism [facility] documented in this encounter Plan of Treatment Upcoming Encounters Date Type Department Care Team (Late st Contact Info) Description 01/24/2026 2:20 PM EDT Office Visit [facility] [address], [address] [place] [address] [place] [address] [place] [address] [address] [place] [address] documented as of this encounter Visit Diagnoses Diagnosis Iron deficiency- Primary Disorders of iron metabolism Muscle cramps S/P parathyroidectomy Other postprocedural status documented in this encounter Additional Health Concerns Assessment Noted Time A fall risk assessment has been complete d for the patient 09/08/2025 11:21 AM EDT A Body Mass Index follow-up plan has been documented for the patient 09/08/2025 12:04 PM EDT documented as of this encounter Care Teams Glass Engraver Relationship Specialty Start Date End Date Piotr Eason MD PCP - General Family Medicine 05/05/25 documented as of this encounter
--- OUTSIDE RECORDS SUMMARY | 2025-11-04 10:43 | XMS_ITS | Clinical Summary ---
Author Organization [facility] Address [address] [place] [address] Care Team Providers Care Road Supervisor Name Role Phone Piotr Eason MD [...] TIME EACH DAY FOR PAIN 3 Active metFORMIN (Glucophage) 500 MG tablet Take 2 tablets by mouth 2 times a day with meals. Active Multiple Vitamin (multivitamin) tablet Take 1 tablet by mouth daily. Active ferrous sulfate 325 (65 Fe) MG tabletIndications:Iro n deficiency Take 1 tablet by mouth every other day. 30 tablet 1 5 Active magnesium oxide (Mag-Ox) 400 mg tabletIndications:Mus alessandra cramps Take 1 tablet by mouth daily. 30 tablet 3 5 Active Fengczn-Zvutnnuem-Ihg wiggins D ER (CITRACAL) 600-40-500 MG-MG-UNIT tablet sustained-release 24 hourIndications:Muscl e cramps,S/P parathyroidectomy Take 2 tablets by mouth daily. 60 tablet 5 Active Active Problems Problem Noted Date Diagnosed Date [...] Encounters Date Type Department Care Team Description 09/10/2025 Telephone [facility] [address] [place] [address] Randy Osuna MD 09/09/2025 Results Follow-Up [facility] [address] [place] [address] Randy Osuna MD Results 09/08/2025 11:20 AM EDT Office Visit [facility] [address] [place] [address], [address] [place] [address] Randy Osuna MD Primary hyperparathyroidism ([facility]) (Primary Dx); S/P parathyroidectomy; Muscle cramps; Osteoporosis without current pathological fracture, unspecified osteoporosis type; Chronic pain of left knee 09/08/2025 Travel from Last 3 Months Immunizations Immunization Administration Dates Next Due DTaP, 5 pertussis antigens 12/13/2016 Influenza, High-dose, Split Virus, Trivalent, Injectable, preservative free 08/08/2021,09/27/2020 Influenza, Split (incl. timoteo fied surface antigen) 08/24/2014,08/24/2013,08/01/2012,08/26,09/09/2009,09/22/2008,09/29/2007 Influenza, high-dose, quadrivalent 09/18/2023 Influenza, injectable, quadrivalent 08/01/2018,0 08/08/2017 Influenza, injectable, quadr ivalent, preservative free 08/22/2022,08/25/2019 Influenza, seasonal, injecta ble, preservative free 09/08/2024 Novel [id number], all formulations 10/10/2009 Pneumococcal Conjugate PCV 13 [...] week 06/24/2025 How often do you attend [facility] or hinduism services? Never 06/24/2025 Do you belong to [...] and heating? Not hard at all 06/24/2025 [facility] - Occupational [...] any time in the past 12 m [facility], were you homeless or living in a residential (including now)? No 06/24/2025 Utilities Answer Date Recorded In the past 12 months has e gripNote, gas, oil, or water company threatened to [...] F) 09/08/2025 11:14 AM EDT Respiratory Rate 18 07/22/2025 10:40 AM EDT Oxygen Saturation 93% 09/08/2025 11:14 AM EDT Inhaled Oxygen Concentration - - Weight 89 kg (196 lb 3.4 oz) 09/08/2025 11:14 AM EDT Height 160 cm (5' 3 ) 09/08/2025 11:14 AM EDT Body Mass Index 34.76 09/08/2025 11:14 AM EDT Plan of Treatment Upcoming Encounters Date Type Department Care Team (Late st Contact Info) Description 01/24/2026 2:20 PM EDT [facility] [address], [address] [place] [address] Randy Osuna MD [address] [facility] [address] [place] [address] Health Maintenance Due Date Last Done Comments [facility]-Bone Density Scan 1955 [facility]-Depression Screening 1955 [facility]-Diabetes: Hemoglobin A1C 1955 [facility]-Medicare Annual Wellness (AWV) 1955 [facility]-/Child/Adol SDOH Screenings 1955 Diabetes: Dental Exam 1965 CT Colonography 02/14/2000 Colonoscopy 02/14/2000 FIT-DNA 02/14/2000 FIT 02/14/2000 FOBT 02/14/2000 Sigmoidoscopy 02/14/2000 [facility]-Colorectal Cancer Screening 02/14/2000 [facility]-Breast Cancer Screening 2005 [facility]-Zoster Vaccines (2 of 3) 02/07/2017 12/13/2016, 10/25/2016 [id number] Vaccine (4 - 2024- season) 2025 01/12/2022, 07/06/2021, 06/15/2021 [facility]-Influenza Vaccine (#1) 07/19/202509/08, 09/18/2023, 08/22/2022, Additional history exists [facility]- SDOH Screenings 12/25/2025 [facility]-Adult SDOH Screenings 12/25/2025 06/24/2025 [facility]-DTaP,Tdap,and Td Vaccines (3 - Td or Tdap) 12/13/2026 12/13/2016, 10/25/2016 [facility]-RSV Vaccine: 60+ Years or (1 - 1-dose 75+ series) 2030 [facility]-Pneumococcal Vaccine: 50+ Years Completed 09/27/2020, 12/13/2016 [facility]-Hepatitis C Screening Completed 08/16/2023 [facility]-Obesity Intervention Completed 025, 07/22/2025, 06/24/2025, Additional history exists HPV Vaccines (No Doses Required) Completed [facility]-HIB Vaccines Aged Out No longer e [...] Procedure Name Priority Date/Time Associated Diagnosis Comments VITAMIN D 25 HYDROXY Routine 09/08/2025 12:24 PM EDT Primary hyperparathyroidism (CMS/HCC) S/P parathyroidectomy Muscle cramps FERRITIN, SERUM Routine 09/08/2025 12:24 PM EDT Muscle cramps Chronic pain of left knee IRON & TOTAL IRON BINDING CAPACITY, PLASMA (INCLUDES TRANSFERRIN) Routine 09/08/2025 12:24 PM EDT Muscle cramps Chronic pain of left knee FOLATE, SERUM Routine 09/08/2025 12:24 PM EDT Muscle cramps VITAMIN B12, SERUM Routine 09/08/2025 12:24 PM EDT Muscle cramps RENAL FUNCTION PANEL, PLASMA Routine 09/08/2025 12:24 PM EDT Primary hyperparathyroidism (CMS/HCC) MAGNESIUM, PLASMA Routine 09/08/2025 12: 24 PM EDT Primary hyperparathyroidism (CMS/HCC) IONIZED CALCIUM, SERUM Routine 09/08/2025 12:24 PM EDT Primary hyperparathyroidism (CMS/HCC) PTH INTACT TOTAL Routine 09/08/2025 12:2 4 PM EDT Primary hyperparathyroidism (CMS/HCC) ACUTE HEPATITIS PANEL Routine 08/16/2023 10:24 AM EDT High risk medication use from Last 3 Months or Most Recently Relevant to Health Maintenance Results * Ionized calcium, serum (09/08/2025 12:24 PM EDT) Ionized Calcium, Serum 4.7 4.6 - 5.3 mg/dL LAB HEMATOLOGY METHOD 09/08/2025 3:01 PM EDT [facility] Blood Venous blood specimen / Unknown Venipuncture / Unknown 09/08/2025 12:24 PM EDT 09/08/2025 12:25 PM EDT us Randy Osuna MD LAB BLOOD ORDERABLES Final R esult [facility] [address] [place] [address] * Iron & Total Iron Binding Capacity, Plasma (Includes Transferrin) (09/08/2025 12:24 PM EDT) Iron, Plasma 41 30 - 160 ug/dL 09/08/2025 4:18 PM EDT [facility] Transferrin, Plasma 231 200 - 360 mg/dL 09/08/2025 4:18 PM EDT [facility] Total Iron Binding Capacity, Plasma 289 240 - 450 ug/mL 09/08/2025 4:18 PM EDT [facility] Transferrin Saturation 14 14 - 50 % 09/08/2025 4:18 PM EDT [facility] Blood Venous blood specimen / Unknown Venipuncture / Unknown 09/08/2025 12:24 PM EDT 09/08/2025 12:25 PM EDT us Randy Osuna MD LAB BLOOD ORDERABLES Final R esult [facility] [address] [place] [address] * Vitamin D 25 Hydroxy (09/08/2025 12:24 PM EDT) Vitamin D 25 Hydroxy 60.0 20.0 - 80.0 ng/mL 09/08/2025 5:27 PM EDT [facility] Blood Venous blood specimen / Unknown Venipuncture / Unknown 09/08/2025 12:24 PM EDT 09/08/2025 12:25 PM EDT Narrative [facility] - 09/08/2025 5:27 PM EDT Testing performed on Alex Mat Machine Operator, standardized against NIST SRM 2972. When testing [...] MD LAB BLOOD ORDERABLES Final R esult [facility] [address] [place] [address] * PTH Intact Total (09/08/2025 12:24 PM EDT) [facility] PTH Intact Total 25 9 - 77 pg/mL 09/08/2025 5:10 PM EDT [facility] Blood Venous blood specimen / Unknown Venipuncture / Unknown 09/08/2025 12:24 PM EDT 09/08/2025 12:25 PM EDT Narrative [facility] - 09/08/2025 5:10 PM EDT Assay performed by immunoassay at the [facility]. Performed on [employer] Mat Machine Operator chemiluminescent immunoassay, tractable to the World Health Organization's first international standard for PTH from the [facility], Code 79/500. Results obtained from different test methods or kits cannot be used interchangeably. Randy Osuna MD LAB BLOOD ORDERABLES Final R esult Performing Organization Address City/[facility]/ZIP Co de Phone Number [facility] [address] [place] [address] * Magnesium, Plasma (09/08/2025 12:24 PM EDT) [facility] Magnesium, Plasma 1.9 1.9 - 2.4 mg/dL 09/08/2025 3:21 PM EDT [facility] Blood Venous blood specimen / Unknown Venipuncture / Unknown 09/08/2025 12:24 PM EDT 09/08/2025 12:25 PM EDT Randy Osuna MD LAB BLOOD ORDERABLES Final R esult [facility] [address] [place] [address] * Folate, Serum (09/08/2025 12:24 PM EDT) [facility] Folate, Serum >20.0 >4.6 ng/mL 09/08/2025 4:38 PM EDT [facility] Blood Venous blood specimen / Unknown Venipuncture / Unknown 09/08/2025 12:24 PM EDT 09/08/2025 12:25 PM EDT Randy Osuna MD LAB BLOOD ORDERABLES Final R esult Performing Organization Address City/[facility]/ZIP Co de Phone Number [facility] [address] [place] [address] * Ferritin, Serum (09/08/2025 12:24 PM EDT) Ferritin, Serum 18 13 - 150 ng/mL 09/08/2025 4:32 PM EDT [facility] Blood Venous blood specimen / Unknown Venipuncture / Unknown 09/08/2025 12:24 PM EDT 09/08/2025 12:25 PM EDT Randy Osuna MD LAB BLOOD ORDERABLES Final R esult Performing Organization Address City/[facility]/ZIP Co de Phone Number [facility] [address] [place] [address] * Vitamin B12, Serum (09/08/2025 12:24 PM EDT) Vitamin B12, Serum 344 210 - 1,033 pg/mL 09/08/2025 4:32 PM EDT [facility] Blood Venous blood specimen / Unknown Venipuncture / Unknown 09/08/2025 12:24 PM EDT 09/08/2025 12:25 PM EDT Randy Osuna MD LAB BLOOD ORDERABLES Final R esult [facility] [address] [place] [address] * (ABNORMAL) Renal function panel (09/08/2025 12:24 PM EDT) Glucose, Plasma 139(H) 74 - 99 mg/dL 09/08/2025 3:21 PM EDT [facility] BUN, Plasma 12 8 - 23 mg/dL 09/08/2025 3:21 PM EDT [facility] Creatinine, Plasma 0.80 0.60 - 1.10 mg/dL 09/08/2025 3:21 PM EDT [facility] BUN/Creatinine Ratio 15 09/08/2025 3:21 PM EDT [facility] Sodium, Plasma 140 136 - 145 mmol/L 09/08/2025 3:21 PM EDT [facility] Potassium, Plasma 4.3 3.6 - 4.9 mmol/L 09/08/2025 3:21 PM EDT [facility] Chloride, Plasma 100 97 - 107 mmol/L 09/08/2025 3:21 PM EDT [facility] CO2, Plasma 25 22 - 29 mmol/L 09/08/2025 3:21 PM EDT [facility] Anion Gap 15 6 - 16 mmol/L 09/08/2025 3:21 PM EDT [facility] Total Calcium, Plasma 8.9 8.9 - 10.2 mg/dL 09/08/2025 3:21 PM EDT [facility] Phosphorus, Plasma 3.7 2.5 - 4.5 mg/dL 09/08/2025 3:21 PM EDT [facility] Albumin, Plasma 4.3 3.5 - 5.2 g/dL 09/08/2025 3:21 PM EDT [facility] eGFRcr 79.4 mL/min/1.7 3m*2 09/08/2025 3:21 PM EDT [facility] Comment:Reported eGFRcr in m L/min/1.73m2 is based the CKD-EPI 2020 equation that does not use a race coefficient. Blood Venous blood specimen / Unknown Venipuncture / Unknown 09/08/2025 12:24 PM EDT 09/08/2025 12:25 PM EDT us Randy Osuna MD LAB BLOOD ORDERABLES Final R esult [facility] [address] [place] [address] * Acute Hepatitis Panel (08/16/2023 10:24 AM EDT) Hepatitis B Surf Antigen Negative Negative 08/16/2023 12:33 PM EDT [facility] Hepatitis C Antibody Negative Negative 08/16/2023 12:33 PM EDT [facility] Hepatitis A Antibody IgM Negative Negative 08/16/2023 12:33 PM EDT [facility] Hepatitis B Core Antibody IgM Negative Negative 08/16/2023 12:33 PM EDT [facility] Blood Venous blood specimen / Unknown Venipuncture / Unknown 08/16/2023 10:24 AM EDT 08/16/2023 10:25 AM EDT [facility] BLOOD ORDERABLES Final Result [facility] [address] [place] [address] from Last 3 Months or Most Recently Relevant to Health Maintenance Insurance MEDICARE [facility] Advance Directives * Full Code (Latest Code Status on File) Date Activated Date Inactivated Comments 07/05/2025 9:50 AM 07/05/2025 3:30 PM Question Answer Comments I have reviewed the capacity from the link above and, if needed, have updated to appropriate status: Yes Care Teams Road Supervisor Relationship Specialty Start Date End Date Piotr Eason MD PCP - General Family Medicine 05/05/25
--- OUTSIDE RECORDS SUMMARY | 2025-11-04 10:43 | XMS_ITS | Encounter Summary ---
Author Organization Healthcare Address [address] [place] [address] Care Team Providers Care Metal Ceiling Builder Name Role Phone Jose Kraft MD Primary Care Provider [phone] Piotr Eason MD Primary Care Provider Alma vailable Encounter Details Date Type Department Care Team (Late st Contact Info) Description 09/28/2024 Orders Only External Location [address] [place] [address] Provider, External Social History Tobacco Use Types [...] Care Clinic [address], [address] [place] [address] Randy Osuna MD [address] [place] [address] documented as of this encounter [...] documented as of this encounter Care Teams Metal Ceiling Builder Relationship Specialty Start Date End Date Jose Kraft MD [address] [place] [address] PCP - General 03/31/21 05/04/25 Piotr Eason MD PCP - General Family Medicine 05/05/25 documented as of this encounter
--- OUTSIDE RECORDS SUMMARY | 2025-11-04 10:43 | XMS_ITS ---
Author Organization Unknown ENCOUNTERS Encounter Performer Location Date Diagnosis Diagnosis Status Pre Admit [address] [place] [address] [id number] Emergency [address] [place] [address] [id number] ROBERTA *Note: Encounters from your own facility or health system may be excluded. Allergies, Adverse Reactions, Alerts Allergen Type Severity Identification Date Medications Name Date Quantity Days Supplied GPI Number
--- OUTSIDE RECORDS SUMMARY | 2025-11-04 10:43 | XMS_ITS | Patient Health Record ---
Author Organization [facility] Address [address] [facility] [address] [place] [address] Care Team Providers Care Diamond Setter Apprentice Name Role Phone Jose Kraft Primary Care [...] review and pick correct strength-formulati on from ROI² options. If intended option is not shown, [...] review and pick correct strength-formulati on from TrueViewspan options. If intended option is not shown, [...] Vaccine Route Administration Date Status Comme nts Covid Pfizer Unknown 07/06/2021 Administered Daptacel (DTaP ) Unknown 12/13/2016 Administered Fluvirin--Influenza vaccine 3+ year IM Intramuscular 09/29/2007 Administered Fluvirin--Influenza vaccine 3+ year Unknown 09/22/2008 Administered Fluvirin--Influenza vaccine 3+ year Unknown 09/09/2009 Administered Fluvirin--Influenza vaccine 3+ year Unknown 08/26/2010 Administered Fluvirin--Influenza vaccine 3+ year Unknown 08/24/2013 Administered FLUZONE 6MO - OLDER IM Intramuscular 08/25/2019 Administer ed Fluzone High Dose IM Intramuscular 09/27/2020 Administered Fluzone High Dose IM Intramuscular 08/08/2021 Administered H1N1 Vaccine IM Intramuscular 10/10/2009 Administered Influenza (Fluzone)--Medicare only IM Intramuscular 08/24/2014 Administered Influenza (Fluzone)--Medicare only IM Intramuscular 08/25/2015 Administered Influenza (Fluzone)--Medicare only IM Intramuscular 09/20/2016 Administered Influenza (Fluzone)--Medicare only IM Intramuscular 08/08/2017 Administered Influenza (Fluzone)--Medicare only IM Intramuscular 08/01/2018 Administered Influenza Intradermal Unknown 08/01/2012 Administered Pneumovax 23 IM Intramuscular 09/27/2020 Administered Prevnar PCV-13 (Pneumococcal conjugate 13) IM Intramuscular 12/13/2016 Administered Zostavax (Shingles) SC Subcutaneous 12/13/2016 Administere d Problems Problem Type SNOMED Code ICD Code Onset Dates Problem Status W/U Status Risk Notes Problem Type II diabetes mellitus without complication (518648994) Type 2 diabetes mellitus without complications (E11.9) Active confirmed Problem Rheumatoid arthritis (33137411) Rheumatoid arthritis without rheumatoid factor, right hand (M06.041) Active confirmed Problem Rheumatoid arthritis (32790625) Rheumatoid arthritis without rheumatoid factor, left hand (M06.042) Active confirmed Problem Osteoarthritis of knee (586917710) Unilateral primary osteoarthritis, left knee (M17.12) Active confirmed Problem Hyperlipidemia (02094305) Hyperlipemia, idiopathic familial (E78.5) Active confirmed Problem Essential hypertension (75432106) Hypertension, essential (I10) Active confirmed Problem Obesity (099051775) Obesity (BMI 30-39.9) (E66.9) Active confirmed Problem Constipation (85308950) Constipation, unspecified constipation type (K59.00) Active confirmed Problem Sciatica (07309458) Right sided sciatica (M54.31) Active confirmed Problem Rotator cuff tear arthropathy (583864037) Rotator cuff tear arthropathy of right shoulder (M12.811) Active confirmed Problem Osteopenia (disorder) (911927161) Osteopenia determined by x-ray (M85.80) Active confirmed Problem Postmenopausal state (98808530) Asymptomatic menopause (Z78.0) Active confirmed Encounters Encounter Location Date Provider Diagnosis formerly [facility] [address] [place] [address] [facility] [address] [place] [address] 02/20/2025 Provider Migration Plan Of Treatment Pending Test Test Name Order Date Urinalysis 04/17/2016 Urinalysis 08/16/2020 N-CRYSTAL (Antinuclear Antibody) 09/27/2007 Rapid Strep 07/04/2007 Microalbumin (In-House) 04/17/2016 Microalbumin (In-House) 04/25/2018 Microalbumin (In-House) 02/21/2015 Microalbumin (In-House) 12/06/2015 N-CMP 10/31/2009 N-Lipid Panel 10/31/2009 N-HbA1C 12/23/2009 Physical Therapy 08/08/2017 Mammogram : Bilateral 02/17/2008 Mammogram : Bilateral 08/16/2020 Dietary Consult 03/26/2011 H-CBC with AUTO DIFF 01/23/2012 H-CMP 01/23/2012 H-CMP 03/19/2016 H-LIPID PANEL 01/23/2012 H-HGBA1C 01/23/2012 H-HGBA1C 03/19/2016 H-TSH 01/23/2012 H-RHEUMATOID ARTHRITIS PROFILE 2 H-SED RATE 01/23/2012 C-CBC 08/26/2010 C-CBC 08/25/2019 C-CBC 02/21/2015 C-Sed Rate (ESR) 02/21/2015 C-CMP 02/21/2015 C-CMP 08/25/2019 C-CMP 08/26/2010 C-CMP 01/10/2021 C-LIPID PANEL 08/26/2010 C-LIPID PANEL 02/21/2015 C-HGBA1C 02/21/2015 C-HGBA1C 08/26/2010 C-CCP IGG Antibodies 05/07/2011 VENIPUNCT, ROUTINE* 12/06/2015 M-Erythrocyte Sedimentation Rate 021 M-Vitamin D 25 Hydroxy 08/08/2021 M-Vitamin D 25 Hydroxy 11/21/2021 Insurance Providers Payer Name Payer Address Payer Phone Subscriber Number Group Number Insured Name Patient Relationship to Insured Coverage Start Date Coverage End Date MEDICARE PART B [address] [phone] [id number] Bernice Cooney Self - patient is the insured [facility] MEDICARE SUPPLEMENT INSURANCE [address] [place] [phone] [id number] Bernice Cooney Self - patient is the insured Medical (General) History Medical History History ICD Code rheumatoid arthritis hypercholestrolemia hormone replacement therapy Esophageal reflux hypertension type II diabetes Colonoscopy 2010 at [facility]... normal. Repeated at [facility] 10/07 with tubular adenomas Normal mammogram 04/03 and 08/06 and 10/07 20 and 10/2021 osteopenia on DEXA scan Apri l 2016 - slightly worse September 06, alendronate started Surgical History Surgery Date(Month/Year) Cholecystectomy 2 c-sections total hysterectomy appendectomy hernia repair colonoscopy 2019 Hospitalization History Reason Date(Month/Year) surgeries
== END 2025-11-04 23:59 | disposition home or self-care (01) ==
LOC: RAD 10:11
PROVIDERS: PCP Family Medicine; Visit Provider Family Medicine
DX: R10.9 Unspecified abdominal pain (principal)
CPT/HCPCS: 74176